=== PATIENT | female | born 1965 | race Caucasian/White ===

== ENCOUNTER 2018-06-05 09:26 | Emergency (ER) | payer MEDICARE, MEDICAID, SELFPAY ==
[2018-06-05 09:27] VITALS: BP 115/51; PULSE 73; RESP 20; TEMP 36.5; O2SAT 100; BMI 33.4
--- NOTE | 2018-06-05 09:40 | RAD_ITS ---
STUDY: X-RAY - LEFT WRIST REASON FOR EXAM: Female, 53 years old. Injury. TECHNIQUE: 3 view(s) of the wrist were obtained. COMPARISON: None. FINDINGS: Noted intra-articular fracture of the distal radius is present with dorsal angulation. Normal radiocarpal articulation. Normal distal radioulnar articulation. Normal carpal bones. Normal carpal articulations. Normal carpometacarpal articulation of the thumb. Normal second through fifth carpometacarpal articulations. Normal visualized metacarpal bones. The soft tissue structures are unremarkable. RAD/Wrist min 3 Views IMPRESSION: Distal radial comminuted fracture as above. Electronically Signed: Celso Dempsey DO at 10:08 EST , Service support ,
--- NOTE | 2018-06-05 09:42 | ED.VISSUMM ---
- ER Visit Summary Date of Service: 06/05/18 Chief Complaint: Left wrist injury History of Present Illness: The patient is a 53 F [id number]-[id number] mechanical fall yesterday evening 930. States in the basement stumbled and fell. No head injuries. Reports was drinking some alcohol yesterday. Does not drink daily. Tobacco history. History of right wrist fracture 4 years ago with surgery. No allergies. No medicines taken since injury. No anticoagulation medicines. Patient ate breakfast prior to arrival. Physical Examination: General: Alert and oriented ?3, no acute distress HEENT: Normocephalic, atraumatic. Moist mucosa membranes Neck: supple, nontender. Cardiovascular: Regular rate and rhythm, no murmurs Respiratory: Normal breath sounds, symmetric, no distress Abdomen: Soft, nontender, nondistended Extremities: Left upper extremity: No elbow pain. There is wrist swelling dorsal deformity radius. Ecchymosis in the volar aspect. Skin intact. Pain with movement. Neuro: no focal neurological deficits. Test Results: Left wrist: Comminuted distal radius fracture dorsal angulation. Postreduction x-ray: Improved angulation. Emergency Department Course and Treatment: Patient deformities on exam. Skin intact. Given oxycodone on arrival. X-ray notes comminuted fracture with dorsal angulation. Discussed and consent with patient, hematoma block performed with good analgesia. Patient was placed in AP splint in a forced flexed position, repeat imaging noted with improved angulation however no some displacement. This comminuted fracture. Neurovascular intact post splinting. Discussed with Dr. Hanna for outpatient follow-up. Prescription for Percocet and Colace.OARRS checked Treatment Plan: [] Disposition: Discharge Impression: 1. Closed left distal radius fracture 2. Status post reduction This note was generated with [employer] dictation software. It may contain incorrect words, spelling, and punctuation that were not noted in review of the chart prior to signing ED Disposition - Plan for ED Patient: Disposition: Home or Assisted Living Chief Complaint: Upper Extremity Injury Diagnosis: Closed fracture of left distal radius Instructions: ED Fx Upper Ext Prescriptions: Oxycodone HCl/Acetaminophen [Percocet 5/325] 1 tablet PO Q6H PRN PRN 3 Days #12 tablet PRN Reason: Pain Docusate Sodium [Colace] 100 mg PO DAILY #20 capsule Referrals: Lalit Kim MD [NON-STAFF] - Domingo Hanna DO [STAFF PHYSICIAN] - 3-5 Days
[2018-06-05] MEDS: oxyCODONE 5 MG Tablet PO (10:01)
[2018-06-05] MEDS: Bupivacaine Mpf 0.5% 30 ML VIAL INFILT (10:02)
--- NOTE | 2018-06-05 10:54 | RAD_ITS ---
STUDY: X-RAY - LEFT WRIST REASON FOR EXAM: Female, 53 years old. Post reduction TECHNIQUE: 3 view(s) of the wrist were obtained. COMPARISON: None. FINDINGS: Comminuted fracture with reduced dorsal angulation of the distal radius is present. Normal radiocarpal articulation. Normal distal radioulnar articulation. Normal carpal bones. Normal carpal articulations. Normal carpometacarpal articulation of the thumb. Normal second through fifth carpometacarpal articulations. Normal visualized metacarpal bones. The soft tissue structures are unremarkable. RAD/Wrist 2 Views IMPRESSION: Reduced dorsal angulation of the distal radius interarticular comminuted fracture. Electronically Signed: Celso Dempsey DO at 11:24 EST , Service support ,
== END 2018-06-05 11:59 | disposition home or self-care (01) ==
PROVIDERS: Emergency Provider Emergency Medicine; Family Provider Family Medicine; PCP Family Medicine
DX: S52.572A Other intraarticular fracture of lower end of left radius, initial encounter for closed fracture (principal); W18.39XA Other fall on same level, initial encounter; Y93.9 Activity, unspecified; Y92.9 Unspecified place or not applicable; K21.9 Gastro-esophageal reflux disease without esophagitis; F32.9 Major depressive disorder, single episode, unspecified; F41.9 Anxiety disorder, unspecified; Z79.899 Other long term (current) drug therapy; Z72.0 Tobacco use
CPT/HCPCS: 25605; 73100; 73110; 99283

== ENCOUNTER 2018-06-09 00:59 | Emergency (ER) | payer MEDICARE, MEDICAID, SELFPAY ==
[2018-06-09 01:01] VITALS: PULSE 86; RESP 18; TEMP 36.5; O2SAT 98; BMI 37.2
[2018-06-09 01:05] VITALS: BP 128/81
--- NOTE | 2018-06-09 01:26 | ED.VISSUMM ---
- ER Visit Summary Date of Service: 06/09/18 Chief Complaint: Splint evaluation History of Present Illness: The patient is a 53 F presents for splint evaluation due to tingling left fingers 3 hours prior to arrival. Seen 4 days ago by myself for a fall with a distal radius fracture. Sugar tong splint was placed. She states she has been elevating she has not had new injuries. She is appointment with Dr. Hanna in 2 days. Pain is controlled. States she is not using her sling. Physical Examination: General: Alert and oriented ?3, no acute distress HEENT: Normocephalic, atraumatic. Moist mucosa membranes Neck: supple, nontender. Cardiovascular: Regular rate and rhythm, no murmurs Respiratory: Normal breath sounds, symmetric, no distress Abdomen: Soft, nontender, nondistended Extremities: Left upper extremity: Sugar tong splint intact. There was swelling distal hand, cap refill less than 3 seconds. Neuro: no focal neurological deficits. Test Results: [] Emergency Department Course and Treatment: Please swelling distally complains of tingling. The splint was loosened, improved symptoms. Light gentle re-wrap. She will continue to elevate, she will follow-up with orthopedics as planned. Treatment Plan: [] Disposition: Discharge Impression: 1. Splint evaluation status post distal radius fracture This note was generated with [employer] dictation software. It may contain incorrect words, spelling, and punctuation that were not noted in review of the chart prior to signing ED Disposition - Plan for ED Patient: Disposition: Home or Assisted Living Chief Complaint: General Illness Diagnosis: Aftercare for cast or splint check or change Referrals: Dk Israel MD [Primary Care Provider] - Domingo Hanna DO [STAFF PHYSICIAN] - Keep Jonny appointment Additional Instructions: keep elevated. wear sling for comfort. keep appointment in 2 days.
[2018-06-09 01:32] VITALS: PULSE 71; RESP 16; O2SAT 95
--- OUTSIDE RECORDS SUMMARY | 2018-08-13 20:46 | XMS RPT_ITS ---
:1965 Author Organization OHIP Care Team Providers Name Role Phone LESA DEL CASTILLO Attending Unavailable LESA DEL CASTILLO Referring Unavailable JONNY KYLE (DOWEL MACHINE OPERATOR) Referring Unavailable LESA DEL CASTILLO Attending Unavailable JOAQUÍN SIMMONS Attending Unavailable Tim Sherwood Attending Unavailable Joaquín Simmons Primary Care Unavailable Joaquín Simmons Primary Care Unavailable Tim Sherwood Attending Unavailable PROBLEMS PROBLEMS DATE TYPE CONDITION / CODE ATTENDING STATUS SOURCE 06/06/2018 Unknown S52.92XA - Tim Sherwood Active [facility] fracture of left [facility] forearm, initial Repository encounter for closed fracture / S52.92XA(ICD-10) 12/01/2017 Active Encounter for Active [facility] screening mammogram [place] for malignant Repository neoplasm of breast / Z12.31(ICD-10) 07/07/2017 Active Encounter for Active [facility] screening for [place] infections with a Repository predominantly sexual mode of transmission / Z11.3(ICD-10) 07/07/2017 Active Encounter for other Active [facility] specified special [place] examinations / Repository Z01.89(ICD-10) PROCEDURES PROCEDURES No Procedure Records FoundRESULTS RESULTS EMERGENCY DEPARTMENT Observed: 06/09/2018 Status: F Source: [place] SUMMARY 2:51 AM [facility] REPOSITORY [facility] Medical Records Department [address] [place] [address] Emergency Department Summary 06/09/18 0126 MR#: [id number] Acct: [id number] Name: MATILDE DAMON Rep #: [id number] : 1965 53 From: Tim Calderon PCP: Joaquín Simmons MD Status: DEP ER - ER Visit Summary Date of Service: 06/09/18 Chief Complaint: Splint evaluation History of Present Illness: The patient is a 53 F presents for splint evaluation due to tingling left fingers 3 hours prior to arrival. Seen 4 days ago by myself for a fall with a distal radius fracture. Sugar tong splint was placed. She states she has been elevating she has not had new injuries. She is appointment with Dr. Hanna in 2 days. Pain is controlled. States she is not using her sling. Physical Examination: General: Alert and oriented 3, no acute distress HEENT: Normocephalic, atraumatic. Moist mucosa membranes Neck: supple, nontender. Cardiovascular: Regular rate and rhythm, no murmurs Respiratory: Normal breath sounds, symmetric, no distress Abdomen: Soft, nontender, nondistended Extremities: Left upper extremity: Sugar tong splint intact. There was swelling distal hand, cap refill less than 3 seconds. Neuro: no focal neurological deficits. Test Results: [] Emergency Department Course and Treatment: Please swelling distally complains of tingling. The splint was loosened, improved symptoms. Light gentle re-wrap. She will continue to elevate, she will follow-up with orthopedics as planned. Treatment Plan: [] Disposition: Discharge Impression: 1. Splint evaluation status post distal radius fracture This note was generated with MuseAmi dictation software. It may contain incorrect words, spelling, and punctuation that were not noted in review of the chart prior to signing ED Disposition - Plan for ED Patient: Disposition: Home or Assisted Living Chief Complaint: General Illness Diagnosis: Aftercare for cast or splint check or change Referrals: Joaquín Simmons MD [Primary Care Provider] - Domingo Hanna DO [STAFF PHYSICIAN] - Keep Jonny appointment Additional Instructions: keep elevated. wear sling for comfort. keep appointment in 2 days. What to do if you have Problems For any increased pain, shortness of breath, bleeding, nausea or vomiting, chest pain, or any unexpected problems, contact your Primary Care Provider. Call [facility] ([phone]) or report to the closest Emergency Room. Call 911 if necessary. 06/09/18 0251 <Electronically signed by Tim Calderon> Date Tim Calderon Cosigner Signature (If Indicated): Date CC: Joaquín Simmons MD EMERGENCY DEPARTMENT Observed: 06/05/2018 Status: F Source: [place] SUMMARY 11:54 AM [facility] REPOSITORY [facility] Medical Records Department [address] [place] [address] Emergency Department Summary 06/05/18 0942 MR#: [id number] Acct: [id number] Name: MATILDE DAMON Rep #: [id number] : 1965 53 From: Tim Calderon PCP: Joaquín Simmons MD Status: REG ER - ER Visit Summary Date of Service: 06/05/18 Chief Complaint: Left wrist injury History of Present Illness: The patient is a 53 F rible-oybl-iovehote mechanical fall yesterday evening 930. States in the basement stumbled and fell. No head injuries. Reports was drinking some alcohol yesterday. Does not drink daily. Tobacco history. History of right wrist fracture 4 years ago with surgery. No allergies. No medicines taken since injury. No anticoagulation medicines. Patient ate breakfast prior to arrival. Physical Examination: General: Alert and oriented 3, no acute distress HEENT: Normocephalic, atraumatic. Moist mucosa membranes Neck: supple, nontender. Cardiovascular: Regular rate and rhythm, no murmurs Respiratory: Normal breath sounds, symmetric, no distress Abdomen: Soft, nontender, nondistended Extremities: Left upper extremity: No elbow pain. There is wrist swelling dorsal deformity radius. Ecchymosis in the volar aspect. Skin intact. Pain with movement. Neuro: no focal neurological deficits. Test Results: Left wrist: Comminuted distal radius fracture dorsal angulation. Postreduction x-ray: Improved angulation. Emergency Department Course and Treatment: Patient deformities on exam. Skin intact. Given oxycodone on arrival. X-ray notes comminuted fracture with dorsal angulation. Discussed and consent with patient, hematoma block performed with good analgesia. Patient was placed in AP splint in a forced flexed position, repeat imaging noted with improved angulation however no some displacement. This comminuted fracture. Neurovascular intact post splinting. Discussed with Dr. Hanna for outpatient follow-up. Prescription for Percocet and Colace.OARRS checked Treatment Plan: [] Disposition: Discharge Impression: 1. Closed left distal radius fracture 2. Status post reduction This note was generated with MuseAmi dictation software. It may contain incorrect words, spelling, and punctuation that were not noted in review of the chart prior to signing ED Disposition - Plan for ED Patient: Disposition: Home or Assisted Living Chief Complaint: Upper Extremity Injury Diagnosis: Closed fracture of left distal radius Instructions: ED Fx Upper Ext Prescriptions: Oxycodone HCl/Acetaminophen [Percocet 5/325] 1 tablet PO Q6H PRN PRN 3 Days #12 tablet PRN Reason: Pain Docusate Sodium [Colace] 100 mg PO DAILY #20 capsule Referrals: Lalit Duque MD [NON-STAFF] - Domingo Hanna DO [STAFF PHYSICIAN] - 3-5 Days What to do if you have Problems For any increased pain, shortness of breath, bleeding, nausea or vomiting, chest pain, or any unexpected problems, contact your Primary Care Provider. Call [facility] ([phone]) or report to the closest Emergency Room. Call 911 if necessary. 06/05/18 1154 <Electronically signed by Tim Calderon> Date Tim Calderon Cosigner Signature (If Indicated): Date CC: Joaquín Simmons MD WRIST 2 VIEWS Observed: 06/05/2018 Status: F Source: [place] 10:54 AM [facility] REPOSITORY [facility] Imaging Services [address] [place] [address] Wrist 2 Views MR#: [id number] Acct: [id number] Name: MATILDE DAMON Rep #: [id number] : 1965 F 53 From: Celso Ke PATINO PCP: Joaquín Simmons MD Status: REG ER Study: Wrist 2 Views Date of Exam: 06/05/18 Exam# [id number] Ordering Dr: Tim Sherwood DO STUDY: X-RAY - LEFT WRIST REASON FOR EXAM: Female, 53 years old. Post reduction TECHNIQUE: 3 view(s) of the wrist were obtained. COMPARISON: None. FINDINGS: Comminuted fracture with reduced dorsal angulation of the distal radius is present. Normal radiocarpal articulation. Normal distal radioulnar articulation. Normal carpal bones. Normal carpal articulations. Normal carpometacarpal articulation of the thumb. Normal second through fifth carpometacarpal articulations. Normal visualized metacarpal bones. The soft tissue structures are unremarkable. RAD/Wrist 2 Views IMPRESSION: Reduced dorsal angulation of the distal radius interarticular comminuted fracture. Electronically Signed: Celso Dempsey DO at 11:24 EST , Service support , CC: Joaquín Simmons MD; Tim Sherwood Splitting Machine Operator Helper: Signed WRIST MIN 3 VIEWS Observed: 06/05/2018 Status: F Source: [place] 9:41 AM [facility] REPOSITORY [facility] Imaging Services [address] [place] [id number] Wrist min 3 Views MR#: [id number] Acct: [id number] Name: MATILDE DAMON Rep #: [id number] : 1965 F 53 From: Celso Dempsey DO PCP: Joaquín Simmons MD Status: REG ER Study: Wrist min 3 Views Date of Exam: 06/05/18 Exam# [id number] Ordering Dr: Tim Sherwood DO STUDY: X-RAY - LEFT WRIST REASON FOR EXAM: Female, 53 years old. Injury. TECHNIQUE: 3 view(s) of the wrist were obtained. COMPARISON: None. FINDINGS: Noted intra-articular fracture of the distal radius is present with dorsal angulation. Normal radiocarpal articulation. Normal distal radioulnar articulation. Normal carpal bones. Normal carpal articulations. Normal carpometacarpal articulation of the thumb. Normal second through fifth carpometacarpal articulations. Normal visualized metacarpal bones. The soft tissue structures are unremarkable. RAD/Wrist min 3 Views IMPRESSION: Distal radial comminuted fracture as above. Electronically Signed: Celso Dempsey DO at 10:08 EST , Service support , CC: Joaquín Simmons MD; Tim Sherwood Splitting Machine Operator Helper: Signed CNOV Observed: 02/12/2018 Status: COMPLETED Source: [place] 2:40 PM [facility] REPOSITORY Office Visit (FAMPWS) MATILDE DAMON ([id number]) 1965 F Date Time Provider Department 02/12/18 2:40 PM JOAQUÍN SIMMONS FAMPWS During your visit today, we recorded the following information about you: Temperature Pulse Respiration Blood pressure 97.3 degrees 74/minute 16/minute 118/78 Weight Height 99.3 kg 1.727 m Joaquín Simmons MD 02/14/2018 3:46 PM Signed Chief Complaint Patient presents with: Establish Care: transfer Imm/Inj: Flu Vaccine HPI Matilde Damon is a 52 year old female who presents here today to establish care. No bowel, Gi, or urinary concerns. No chest pains or dizziness. COPD: has SOB with exertion, has to stop and rest. She had lung testing done. Is taking Incruse Ellipta inhaler daily and Albuterol as needed. Does not follow with Pulmonary. Smokes about 1 ppd, not interested in quitting. She has a hard time not smoking if other people are smoking around her. GERD: is taking omeprazole 20 mg daily, controlled. Bipolar: is taking Buspar 10 mg BID and Effexor xr 150 mg daily. Gets these prescribed by Dr. Saldaña at the counseling center, follows with them every 6 months. Lipid: pt states she no longer takes the zocor. Skin: rough bumpy rash to skin and nose, has been using Bactroban ointment which helps. Pt had issues with right calf feeling pain and tight, similar to how it felt in 2009. States this did improve. She has been taking a baby aspirin daily. Saw Dr. Agustin Hunter for PVD and had intervention for blockage at that time. Last SARY in 2011.. Past medical history, appointments, medications, allergies reviewed. Previous Medical History PAST MEDICAL HISTORY Diagnosis Date - Carpal tunnel syndrome - Depression - Elevated blood pressure reading without diagnosis of hypertension - Generalized anxiety disorder - GERD (gastroesophageal reflux disease) Gastritis - Hyperlipidemia - Peripheral arterial disease (HCC) right leg - PMH - PAST MEDICAL HISTORY OF mild retardation - PMH - PAST MEDICAL HISTORY OF ADD? - PMH - PAST MEDICAL HISTORY OF arthritis - Tobacco use disorder Previous Surgical History PAST SURGICAL HISTORY Procedure Laterality Date - BALLN ANGIOPLASTY PERC,FEM-POP ---10 right LEG angioplasty superficial femoral and profunda - BX OF BREAST; INCISIONAL Bx of left breast, incisional- benign - DELIVERY ONLY 1987, 1992 - COLONOSCOP W/ OR W/O [facility] SPEC 09/30/2016 normal - 10 year followup - CORRECT BUNION,SIMPLE Bunion X-2 - EGD W/O OR W/BRUSH/WASH 05/16/15 EGD - LIGATE FALLOPIAN TUBE 08/16/03 Tubal ligation - OPEN RX NAVICULAR FX 05/12/2014 ORIF right wrist - PAST SURGICAL HISTORY OF right 5th digit arthroplasty, foot - REMOVAL GALLBLADDER 1993 open cholecystectomy Family History FAMILY HISTORY Problem Relation Age of Onset - Diabetes Mother - Hypertension Mother - Hypertension Father - Heart Failure Father - Hyperlipidemia Father - Cancer Maternal Aunt Uterine - Diabetes Paternal Aunt - Diabetes Paternal Uncle - Colon Cancer Maternal Grandmother in 70s Patient Allergies ALLERGIES No Known Allergies Current Medications Current Outpatient Prescriptions on File Prior to Visit: omeprazole (PRILOSEC) 20 mg capsule TAKE 1 CAPSULE BY MOUTH ONCE DAILY. INCRUSE ELLIPTA 62.5 mcg/actuation inhaler INHALE 1 PUFF INSTRUCTED ONCE DAILY. simvastatin (ZOCOR) 10 mg tablet TAKE 1 TABLET BY MOUTH AT BEDTIME albuterol HFA (PROVENTIL HFA, VENTOLIN HFA) 90 mcg/actuation inhaler Inhale 1 Puff as instructed every 4 hours as needed for Wheezing/Shortness of Breath. ASPIRIN 81 MG TAB Take one(1) tablet daily. venlafaxine hcl(EFFEXOR XR 150 MG 24 HR CAP) Take one(1) tablet daily. busPIRone (BUSPAR) 10 mg ORAL tablet Take 10 mg by mouth three times daily. No current facility-administered medications on file prior to visit. Social History Social History Marital status: Spouse name: Years of education: Number of children: 2 Occupational History Occupation Employer Comment Disabled-mental il* Social History Main Topics Smoking status: Current Every Day Smoker Packs/day: 1.00 Years: 30.00 Types: Cigarettes Smokeless tobacco: Never Used Comment: Father smoked in childhood home. Has lived with smokers as an adult. Alcohol use: Yes Comment: Rarely Drug use: No Sexual activity: Yes Partners with: Male control/protection: Tubal Ligation EXAM: BP 118/78 Pulse 74 Temp 36.3 ?C (97.3 ?F) (Tympanic) Resp 16 Ht 172.7 cm (5' 8) Wt 99.3 kg (219 lb) BMI 33.30 kg/m? General Appearance: Well appearing, alert, in no acute distress, well-hydrated, well nourished. and Obese.. Neck: no carotid bruits. Lungs: Lungs clear to auscultation. No wheezing, rhonchi, rales. Heart: RRR without murmur, gallop, or rubs. No ectopy. Extremities: Pulses: diminished on right. Health Maintenance List ANNUAL PCP TEAM CHRONIC DISEASE VISIT due on 1984 HPV EVERY 5 YEARS due on 10/25/2015 INFLUENZA(1) due on 01/23/2018 MAMMOGRAM due on 12/01/2018 DIABETES SCREEN due on 11/29/2019 PAP EVERY 5 YEARS due on 09/23/2021 LIPID SCREEN due on 11/28/2021 DTAP,TDAP,TD(2 - Td) due on 08/07/2026 COLORECTAL CANCER SCREENING,SEE MODIFIER due on 10/01/2026 ONE PNEUMOVAX PRIOR TO AGE 65 Completed Data reviewed None ASSESSMENT/PLAN: 1. Establishing care with new doctor, encounter for - ICD9: V65.8, ICD10: Z76.89 (primary diagnosis) Recommend pt stop smoking Recommend healthy diet and exercise 2. Need for vaccination - ICD9: V05.9, ICD10: Z23 - INFLUENZA VACCINE QUADRIVALENT AGE 3 YRS PLUS + IM 3. Tobacco use disorder - ICD9: 305.1, ICD10: F17.200 - Cessation encouraged. - Not willing to quit at this time 4. Bipolar affective disorder, remission status unspecified (HCC) - ICD9: 296.80, ICD10: F31.9 Continue with Stephen and deniz Continue to follow with Dr. Saldaña - BUSPIRONE 10 MG TABLET 5. Gastroesophageal reflux disease without esophagitis - ICD9: 530.81, ICD10: K21.9 - OMEPRAZOLE 20 MG CAPSULE,DELAYED RELEASE 6. Chronic obstructive pulmonary disease, unspecified COPD type (HCC) - ICD9: 496, ICD10: J44.9 - UMECLIDINIUM 62.5 MCG/ACTUATION BLISTER POWDER FOR INHALATION - ALBUTEROL SULFATE HFA 90 MCG/ACTUATION AEROSOL INHALER 7. Mixed hyperlipidemia - ICD9: 272.2, ICD10: E78.2 - good control - Encouraged following a low fat, low cholesterol diet. - Discussed the benefits of regular aerobic exercise and weight loss. 8. Peripheral vascular disease, unspecified (HCC) - ICD9: 443.9, ICD10: I73.9 SARY test ordered; notify of result Follow up in 1 year or sooner if needed. Will notify pt of blood work results. I agree with the Chief Complaint, ROS, and Past Histories independently gathered by the clinical support coordinator and the remaining scribed note accurately describes my personal service to the patient. Joaquín Simmons MD The documentation for this note was completed by Shanna Jeter Ma acting as scribe for Joaquín Simmons MD. February 12, 2018 2:23 PM. 52 year old female here for INACTIVATED INFLUENZA VACCINE. 1964-2386 Season Patient is identified by name and date of : Yes [] CONTRAINDICATIONS color enhanced section Age less than 6 months? No Allergy to eggs, chicken, chicken feathers, or chicken dander? No Allergy to thimerosal (a preservative) or formaldehyde, gelatin? No History of severe reaction to any vaccine component or a previous dose of influenza vaccination? No History of Guillain-[place] Syndrome within 6 weeks after a previous influenza vaccine? No Patient is not moderately or severely ill? No Current temperature greater or equal to 100.4F? No History of Bone Marrow Transplant prior 6 months or solid organ transplant in the past 3 months ? No History of fainting after a prior injection or medical procedure? No- ? If patient has fainted in the past, the CDC recommends sitting or lying down for 15 minutes after the vaccination. [] VERIFICATION color enhanced section Was the answer Yes for any of the above contraindications? No contraindications present. Acceptable to proceed with vaccine. Patient/guardian agrees the above answers are true to the best of their knowledge? Yes Flu vaccine information sheet given? Yes [facility] details of immunizations adminstered today. Patient age: [age] year old For The 4996-8650 Flu Season 6-35 months old: Fluzone 0.25 ml - IM (Preservative Free) 3 years of age: Fluzone 0.5 ml - IM (Preservative Free) 3 years and older: Fluzone 0.5 ml- IM-(with Preservatives) 65+ years old: 2-49 years old Fluzone High-Dose 0.5 ml - IM (Preservative Free) FLUMIST- intranasal REMEMBER: If patient is less than 9 years of age and this is the first vaccine of Influenza to be received in any flu season, they should receive a second dose in one months time. Referring Provider: SELF [200] Allergies As of Date: 02/12/2018 (No Known Allergies) Date Reviewed: 02/12/2018 Reviewed by: Shanna Jeter Ma - Fully Assessed Reason for Visit: Establish Care [42] Cmt: transfer Imm/Inj [58] Cmt: Flu Vaccine Reason For Visit History Recorded Primary Visit Diagnosis:Establishing care with new doctor, encounter for [Z76.89] Other Visit Diagnoses:Need for vaccination [Z23] Tobacco use disorder [F17.200] Bipolar affective disorder, remission status unspecified ([facility]) [F31.9] Gastroesophageal reflux disease without esophagitis [K21.9] Chronic obstructive pulmonary disease, unspecified COPD type ([facility]) [J44.9] Mixed hyperlipidemia [E78.2] Peripheral vascular disease, unspecified ([facility]) [I73.9] Order(s):INFLUENZA VACCINE QUADRIVALENT AGE 3 YRS PLUS + IM [[id number]] Order #: [id number] omeprazole (PRILOSEC) 20 mg capsuleTake 1 capsule by mouth once daily.Disp: 30 capsuleRfl: 11 umeclidinium (INCRUSE ELLIPTA) 62.5 mcg/actuation inhalerINHALE 1 PUFF INSTRUCTED ONCE DAILY.Disp: 1 EachRfl: 11 albuterol HFA (PROVENTIL HFA, VENTOLIN HFA) 90 mcg/actuation inhalerInhale 1 Puff as instructed every 4 hours as needed for Wheezing/Shortness of Breath.Disp: 1 InhalerRfl: 5 mupirocin (BACTROBAN) 2 % ointmentApply 1 application to affected area three times daily. Location: noseDisp: 15 gRfl: 0 LIPID PANEL BASIC [SQLIPB] Order #: [id number] FUTURE COMP METABOLIC PANEL [SQCMP] Order #: [id number] FUTURE PVR ANK PRESS [facility] [[id number]] Order #: [id number] FUTURE Prescriptions as of 02/12/2018 Sig: OMEPRAZOLE 20 MG CAPSULE,VENECIA* Take 1 capsule by mouth once * UMECLIDINIUM 62.5 MCG/ACTUATI* INHALE 1 PUFF INSTRUCTED O* ALBUTEROL SULFATE HFA 90 MCG/* Inhale 1 Puff as instructed e* SIMVASTATIN 10 MG TABLET TAKE 1 TABLET BY MOUTH AT BED* * ASPIRIN 81 MG TABLET Take one(1) tablet daily. * EFFEXOR XR 150 MG CAPSULE,EXT* Take one(1) tablet daily. BUSPIRONE 10 MG TABLET Take 1 tablet by mouth twice * MUPIROCIN 2 % TOPICAL OINTMENT Apply 1 application to affect* Problem List As Of Date 02/12/2018 Noted Resolved LUMBAGO [M54.5] INVALID FOR* COMPLIC MATERIAL MOVER ORTHO DEVICE [T84.89XA] INVALID FOR* PAIN IN LIMB [M79.609] INVALID FOR* CARPAL TUNNEL SYNDROME [G56.00] INVALID FOR* CERVICALGIA [M54.2] INVALID FOR* JOINT PAIN-SHLDER [M25.519] INVALID FOR* HIDRADENITIS [L73.2] INVALID FOR* Unspecified Peripheral Vascular Disease [I73.9] INVALID FOR* Exostosis of unspecified site [M89.8X9] INVALID FOR* Hallux valgus (acquired) [M20.10] INVALID FOR* Folliculitis [L73.9] INVALID FOR* Tobacco use disorder [F17.200] Right wrist fracture [S62.101A] INVALID FOR* Nontoxic uninodular goiter [E04.1] INVALID FOR* PVD (peripheral vascular disease) (HCC) [I73.9] INVALID FOR* Chronic bronchitis (HCC) [J42] INVALID FOR* Bipolar disorder (HCC) [F31.9] INVALID FOR* Gastroesophageal reflux disease [K21.9] INVALID FOR*05/16/2015 Centrilobular emphysema (HCC) [J43.2] INVALID FOR* Hyperlipidemia [E78.5] INVALID FOR* Gastroesophageal reflux disease without esophag*INVALID FOR* Prescriptions ordered this encounter Disp Refills Start End OMEPRAZOLE 20 MG CAPSULE,DELAYED REL* 30 c* 02/12/2018 Route: ORAL Sig: Take 1 capsule by mouth once daily. UMECLIDINIUM 62.5 MCG/ACTUATION BLIS* 1 Ea* 11 02/12/2018 Sig: INHALE 1 PUFF INSTRUCTED ONCE DAILY. ALBUTEROL SULFATE HFA 90 MCG/ACTUATI* 1 In* 5 02/12/2018 Route: INHALATION Sig: Inhale 1 Puff as instructed every 4 hours as needed for Wheezing/Shortness of Breath. MUPIROCIN 2 % TOPICAL OINTMENT 15 g 0 02/12/2018 Route: TOPICAL Sig: Apply 1 application to affected area three times daily. Location: nose Medications Discontinued During This Encounter busPIRone (BUSPAR) 10 mg ORAL tablet 02/12/2018 Class: Med Update Route: ORAL Sig: Take 10 mg by mouth three times daily. Disc: Reason for discontinue is not on file. omeprazole (PRILOSEC) 20 mg capsule 30 c* 5 01/13/2018 02/12/2018 Cmt: Maximum Refills Reached Sig: TAKE 1 CAPSULE BY MOUTH ONCE DAILY. Disc: Reason for discontinue is not on file. INCRUSE ELLIPTA 62.5 mcg/actuation i* 1 Ea* 5 01/13/2018 02/12/2018 Cmt: Maximum Refills Reached Sig: INHALE 1 PUFF INSTRUCTED ONCE DAILY. Disc: Reason for discontinue is not on file. albuterol HFA (PROVENTIL HFA, VENTOL* 1 In* 0 07/17/2016 02/12/2018 Route: INHALATION Sig: Inhale 1 Puff as instructed every 4 hours as needed for Wheezing/Shortness of Breath. Disc: Reason for discontinue is not on file. Encounter Status:Closed by JOAQUÍN SIMMONS MD on 02/14/18 PROGRESS Observed: 02/12/2018 Status: COMPLETED Source: [place] 2:19 PM [facility] [place] REPOSITORY HNO ID: [id number] Author: Joaquín Simmons Service: (none) Author Type: Physician Type: Progress Notes Filed: 02/14/2018 3:46 PM Note Text: Chief Complaint Patient presents with: Establish Care: transfer Imm/Inj: Flu Vaccine HPI Matilde Damon is a 52 year old female who presents here today to establish care. No bowel, Gi, or urinary concerns. No chest pains or dizziness. COPD: has SOB with exertion, has to stop and rest. She had lung testing done. Is taking Incruse Ellipta inhaler daily and Albuterol as needed. Does not follow with Pulmonary. Smokes about 1 ppd, not interested in quitting. She has a hard time not smoking if other people are smoking around her. GERD: is taking omeprazole 20 mg daily, controlled. Bipolar: is taking Buspar 10 mg BID and Effexor xr 150 mg daily. Gets these prescribed by Dr. Saldaña at the counseling center, follows with them every 6 months. Lipid: pt states she no longer takes the zocor. Skin: rough bumpy rash to skin and nose, has been using Bactroban ointment which helps. Pt had issues with right calf feeling pain and tight, similar to how it felt in 2009. States this did improve. She has been taking a baby aspirin daily. Saw Dr. Agustin Hunter for PVD and had intervention for blockage at that time. Last SARY in 2011.. Past medical history, appointments, medications, allergies reviewed. Previous Medical History PAST MEDICAL HISTORY Diagnosis Date - Carpal tunnel syndrome - Depression - Elevated blood pressure reading without diagnosis of hypertension - Generalized anxiety disorder - GERD (gastroesophageal reflux disease) Gastritis - Hyperlipidemia - Peripheral arterial disease (HCC) right leg - PMH - PAST MEDICAL HISTORY OF mild retardation - PMH - PAST MEDICAL HISTORY OF ADD? - PMH - PAST MEDICAL HISTORY OF arthritis - Tobacco use disorder Previous Surgical History PAST SURGICAL HISTORY Procedure Laterality Date - BALLN ANGIOPLASTY PERC,FEM-POP 07-16--10 right LEG angioplasty superficial femoral and profunda - BX OF BREAST; INCISIONAL Bx of left breast, incisional- benign - DELIVERY ONLY 1987, 1992 - COLONOSCOP W/ OR W/O [facility] SPEC 09/30/2016 normal - 10 year followup - CORRECT BUNION,SIMPLE Bunion X-2 - EGD W/O OR W/BRUSH/WASH 05/16/15 EGD - LIGATE FALLOPIAN TUBE 08/16/03 Tubal ligation - OPEN RX NAVICULAR FX 05/12/2014 ORIF right wrist - PAST SURGICAL HISTORY OF right 5th digit arthroplasty, foot - REMOVAL GALLBLADDER 1993 open cholecystectomy Family History FAMILY HISTORY Problem Relation Age of Onset - Diabetes Mother - Hypertension Mother - Hypertension Father - Heart Failure Father - Hyperlipidemia Father - Cancer Maternal Aunt Uterine - Diabetes Paternal Aunt - Diabetes Paternal Uncle - Colon Cancer Maternal Grandmother in 70s Patient Allergies ALLERGIES No Known Allergies Current Medications Current Outpatient Prescriptions on File Prior to Visit: omeprazole (PRILOSEC) 20 mg capsule TAKE 1 CAPSULE BY MOUTH ONCE DAILY. INCRUSE ELLIPTA 62.5 mcg/actuation inhaler INHALE 1 PUFF INSTRUCTED ONCE DAILY. simvastatin (ZOCOR) 10 mg tablet TAKE 1 TABLET BY MOUTH AT BEDTIME albuterol HFA (PROVENTIL HFA, VENTOLIN HFA) 90 mcg/actuation inhaler Inhale 1 Puff as instructed every 4 hours as needed for Wheezing/Shortness of Breath. ASPIRIN 81 MG TAB Take one(1) tablet daily. venlafaxine hcl(EFFEXOR XR 150 MG 24 HR CAP) Take one(1) tablet daily. busPIRone (BUSPAR) 10 mg ORAL tablet Take 10 mg by mouth three times daily. No current facility-administered medications on file prior to visit. Social History Social History Marital status: Spouse name: Years of education: Number of children: 2 Occupational History Occupation Employer Comment Disabled-mental il* Social History Main Topics Smoking status: Current Every Day Smoker Packs/day: 1.00 Years: 30.00 Types: Cigarettes Smokeless tobacco: Never Used Comment: Father smoked in childhood home. Has lived with smokers as an adult. Alcohol use: Yes Comment: Rarely Drug use: No Sexual activity: Yes Partners with: Male control/protection: Tubal Ligation EXAM: BP 118/78 Pulse 74 Temp 36.3 ?C (97.3 ?F) (Tympanic) Resp 16 Ht 172.7 cm (5' 8) Wt 99.3 kg (219 lb) BMI 33.30 kg/m? General Appearance: Well appearing, alert, in no acute distress, well-hydrated, well nourished. and Obese.. Neck: no carotid bruits. Lungs: Lungs clear to auscultation. No wheezing, rhonchi, rales. Heart: RRR without murmur, gallop, or rubs. No ectopy. Extremities: Pulses: diminished on right. Health Maintenance List ANNUAL PCP TEAM CHRONIC DISEASE VISIT due on 1984 HPV EVERY 5 YEARS due on 10/25/2015 INFLUENZA(1) due on 01/23/2018 MAMMOGRAM due on 12/01/2018 DIABETES SCREEN due on 11/29/2019 PAP EVERY 5 YEARS due on 09/23/2021 LIPID SCREEN due on 11/28/2021 DTAP,TDAP,TD(2 - Td) due on 08/07/2026 COLORECTAL CANCER SCREENING,SEE MODIFIER due on 10/01/2026 ONE PNEUMOVAX PRIOR TO AGE 65 Completed Data reviewed None ASSESSMENT/PLAN: 1. Establishing care with new doctor, encounter for - ICD9: V65.8, ICD10: Z76.89 (primary diagnosis) Recommend pt stop smoking Recommend healthy diet and exercise 2. Need for vaccination - ICD9: V05.9, ICD10: Z23 - INFLUENZA VACCINE QUADRIVALENT AGE 3 YRS PLUS + IM 3. Tobacco use disorder - ICD9: 305.1, ICD10: F17.200 - Cessation encouraged. - Not willing to quit at this time 4. Bipolar affective disorder, remission status unspecified (HCC) - ICD9: 296.80, ICD10: F31.9 Continue with Effexor and buspar Continue to follow with Dr. Saldaña - BUSPIRONE 10 MG TABLET 5. Gastroesophageal reflux disease without esophagitis - ICD9: 530.81, ICD10: K21.9 - OMEPRAZOLE 20 MG CAPSULE,DELAYED RELEASE 6. Chronic obstructive pulmonary disease, unspecified COPD type (HCC) - ICD9: 496, ICD10: J44.9 - UMECLIDINIUM 62.5 MCG/ACTUATION BLISTER POWDER FOR INHALATION - ALBUTEROL SULFATE HFA 90 MCG/ACTUATION AEROSOL INHALER 7. Mixed hyperlipidemia - ICD9: 272.2, ICD10: E78.2 - good control - Encouraged following a low fat, low cholesterol diet. - Discussed the benefits of regular aerobic exercise and weight loss. 8. Peripheral vascular disease, unspecified (HCC) - ICD9: 443.9, ICD10: I73.9 SARY test ordered; notify of result Follow up in 1 year or sooner if needed. Will notify pt of blood work results. I agree with the Chief Complaint, ROS, and Past Histories independently gathered by the clinical support coordinator and the remaining scribed note accurately describes my personal service to the patient. Joaquín Simmons MD The documentation for this note was completed by Shanna Jeter Ma acting as scribe for Joaquín Simmons MD. February 12, 2018 2:23 PM. 52 year old female here for INACTIVATED INFLUENZA VACCINE. 2022-2332 Season Patient is identified by name and date of : Yes [] CONTRAINDICATIONS color enhanced section Age less than 6 months? No Allergy to eggs, chicken, chicken feathers, or chicken dander? No Allergy to thimerosal (a preservative) or formaldehyde, gelatin? No History of severe reaction to any vaccine component or a previous dose of influenza vaccination? No History of Guillain-[place]and[place] Syndrome within 6 weeks after a previous influenza vaccine? No Patient is not moderately or severely ill? No Current temperature greater or equal to 100.4F? No History of Bone Marrow Transplant prior 6 months or solid organ transplant in the past 3 months ? No History of fainting after a prior injection or medical procedure? No- ? If patient has fainted in the past, the CDC recommends sitting or lying down for 15 minutes after the vaccination. [] VERIFICATION color enhanced section Was the answer Yes for any of the above contraindications? No contraindications present. Acceptable to proceed with vaccine. Patient/guardian agrees the above answers are true to the best of their knowledge? Yes Flu vaccine information sheet given? Yes See immunization activity in [facility] for details of immunizations adminstered today. Patient age: [age] year old For The 5851-6402 Flu Season 6-35 months old: Fluzone 0.25 ml - IM (Preservative Free) 3 years of age: Fluzone 0.5 ml - IM (Preservative Free) 3 years and older: Fluzone 0.5 ml- IM-(with Preservatives) 65+ years old: 2-49 years old Fluzone High-Dose 0.5 ml - IM (Preservative Free) FLUMIST- intranasal REMEMBER: If patient is less than 9 years of age and this is the first vaccine of Influenza to be received in any flu season, they should receive a second dose in one months time. CNCO Observed: 12/01/2017 Status: COMPLETED Source: [place] 3:57 PM [facility] REPOSITORY HNO ID: [id number] Author: Mammography Coordinator Service: (none) Author Type: Physician Type: Letter Filed: 12/02/2017 11:32 PM Note Text: December 01, 2017 PID: [id number] Matilde Damon [address] [place] [address] Dear Ms. Damon, We are pleased to inform you that the results of your recent breast imaging exam on 12/01/2017 are normal. DENSITY_MESSAGE Early detection of cancer is very important. We also understand recommendations regarding breast cancer screening are controversial. Please discuss with your primary care provider which strategy is best for you and whether a mammogram is right for you. Your imaging studies and report will be kept on file at [facility] as part of your permanent medical record and are available for your continuing care. Thank you for allowing us to help in meeting your health care needs. Sincerely, Dr. Giles Interpreting Radiologist [facility] (Normal over 40) CNOV Observed: 12/01/2017 Status: COMPLETED Source: [place] 3:40 PM [facility] [place] REPOSITORY Office Visit (WOOB) MATILDE DAMON ([id number]) 1965 F Date Time Provider Department 12/01/17 3:40 PM LESA DEL CASTILLO During your visit today, we recorded the following information about you: Blood pressure Weight Height Last Period 134/90 97.5 kg 1.702 m 10/01/17 Lesa Del Castillo MD 12/01/2017 4:02 PM Signed Matilde Damon is a 52 year old who presents for her annual gynecologic exam without complaints. Postmenopausal: No, menses every 2 months HRT use: No. Last Pap: 2016 normal HPV: n/a History of abnormal pap: No Last mammogram: today History of abnormal mammogram: Yes - h/o breast biopsy Obstetric History T2 L2 SAB0 TAB0 Ectopic0 Multiple0 Live Births0 PAST MEDICAL HISTORY Diagnosis Date - Carpal tunnel syndrome - Depression - Elevated blood pressure reading without diagnosis of hypertension - Generalized anxiety disorder - GERD (gastroesophageal reflux disease) Gastritis - Hyperlipidemia - Peripheral arterial disease (HCC) right leg - PMH - PAST MEDICAL HISTORY OF mild retardation - PMH - PAST MEDICAL HISTORY OF ADD? - PMH - PAST MEDICAL HISTORY OF arthritis - Tobacco use disorder PAST SURGICAL HISTORY Procedure Laterality Date - BALLN ANGIOPLASTY PERC,FEM-POP 2-22--10 right LEG angioplasty superficial femoral and profunda - BX OF BREAST; INCISIONAL Bx of left breast, incisional- benign - DELIVERY ONLY 1987, 1992 - [facility]COP W/ [facility] 09/30/2016 normal - 10 year followup - CORRECT BUNION,SIMPLE Bunion X-2 - EGD W/O OR W/BRUSH/WASH 05/16/15 EGD - LIGATE FALLOPIAN TUBE 08/16/03 Tubal ligation - OPEN RX NAVICULAR FX 05/12/2014 ORIF right wrist - PAST SURGICAL HISTORY OF right 5th digit arthroplasty, foot - REMOVAL GALLBLADDER 1993 open cholecystectomy FAMILY HISTORY Problem Relation Age of Onset - Diabetes Mother - Hypertension Mother - Hypertension Father - Heart Failure Father - Hyperlipidemia Father - Cancer Maternal Aunt Uterine - Diabetes Paternal Aunt - Diabetes Paternal Uncle - Colon Cancer Maternal Grandmother in 70s SOCIAL HISTORY Social History Substance Use Topics - Smoking status: Current Every Day Smoker Packs/day: 1.00 Years: 30.00 Types: Cigarettes - Smokeless tobacco: Never Used Comment: Father smoked in childhood home. Has lived with smokers as an adult. - Alcohol use Yes Comment: Rarely REVIEW OF SYSTEMS Abdomen: No abdominal pain, nausea, vomiting, diarrhea, or constipation. No bloating, early satiety, indigestion, or increased flatulence. Bladder: No dysuria, gross hematuria, urinary frequency, urinary urgency, or incontinence Breast: No breast lumps, nipple d/c, overlying skin changes, redness or skin retraction Allergies and current medication updated:Yes EXAM: There were no vitals taken for this visit. GENERAL: pleasant, female in no apparent distress BREAST: soft, non-tender, symmetric, no dominant mass, normal nipple-areolar complex, no lymphadenopathy and no nipple discharge CHEST: Normal inspiratory effort ABDOMEN: soft, non-tender and no masses PELVIC: external genitalia normal, normal Bartholin's glands, urethra, Bryson's glands, no vulvar lesions, no cervical lesions, normal appearing perineal body and perianal region BIMANUAL: uterus normal size, shape and consistency, no adnexal masses and non-tender RECTOVAGINAL: patient declined. NEURO: alert and oriented x3,exam grossly non-focal EXTREMITIES: normal ASSESSMENT/PLAN: 1) Health maintenance: Pap up to date - repeat in 1-2 years Mammogram up to date Nutrition, exercise and routine health maintenance exams reviewed. Colon cancer screening: up to date with screening 2) Follow up one year or sooner as needed Lesa Del Castillo MD Referring Provider: SELF [200] Allergies As of Date: 12/01/2017 (No Known Allergies) Date Reviewed: 12/01/2017 Reviewed by: Lesa Del Castillo - Fully Assessed Reason for Visit: Yearly Exam [187] Primary Visit Diagnosis:Encounter for gynecological examination without abnormal finding [Z01.419] Other Visit Diagnosis:Encounter for screening mammogram for malignant neoplasm of breast [Z12.31] Order(s):[facility] SCREENING [[id number]] Order #: [id number] FUTURE Prescriptions as of 12/01/2017 Sig: OMEPRAZOLE 20 MG CAPSULE,VENECIA* TAKE 1 CAPSULE BY MOUTH ONCE * INCRUSE ELLIPTA 62.5 MCG/ACTU* INHALE 1 PUFF INSTRUCTED O* SIMVASTATIN 10 MG TABLET TAKE 1 TABLET BY MOUTH AT BED* ALBUTEROL SULFATE HFA 90 MCG/* Inhale 1 Puff as instructed e* * BUSPIRONE 10 MG TABLET Take 10 mg by mouth three melisa* * ASPIRIN 81 MG TABLET Take one(1) tablet daily. * EFFEXOR XR 150 MG CAPSULE,EXT* Take one(1) tablet daily. Problem List As Of Date 12/01/2017 Noted Resolved LUMBAGO [M54.5] INVALID FOR* COMPLIC MATERIAL MOVER ORTHO DEVICE [T84.89XA] INVALID FOR* PAIN IN LIMB [M79.609] INVALID FOR* CARPAL TUNNEL SYNDROME [G56.00] INVALID FOR* CERVICALGIA [M54.2] INVALID FOR* JOINT PAIN-SHLDER [M25.519] INVALID FOR* HIDRADENITIS [L73.2] INVALID FOR* Unspecified Peripheral Vascular Disease [I73.9] INVALID FOR* Exostosis of unspecified site [M89.8X9] INVALID FOR* Hallux valgus (acquired) [M20.10] INVALID FOR* Folliculitis [L73.9] INVALID FOR* Tobacco use disorder [F17.200] Right wrist fracture [S62.101A] INVALID FOR* Nontoxic uninodular goiter [E04.1] INVALID FOR* PVD (peripheral vascular disease) (HCC) [I73.9] INVALID FOR* Chronic bronchitis (HCC) [J42] INVALID FOR* Bipolar disorder (HCC) [F31.9] INVALID FOR* Gastroesophageal reflux disease [K21.9] INVALID FOR*05/16/2015 Centrilobular emphysema (HCC) [J43.2] INVALID FOR* Hyperlipidemia [E78.5] INVALID FOR* Gastroesophageal reflux disease without esophag*INVALID FOR* Disposition: Return in about 1 year (around 12/01/2018) for Routine TENNIS NET MAKER exam. Follow-up and Disposition History Recorded Encounter Status:Closed by LESA DEL CASTILLO MD on 12/01/17 PROGRESS Observed: 12/01/2017 Status: COMPLETED Source: [place] 3:25 PM [facility] [place] REPOSITORY HNO ID: [id number] Author: Lesa Del Castillo Service: (none) Author Type: Physician Type: Progress Notes Filed: 12/01/2017 4:02 PM Note Text: Matilde Damon is a 52 year old who presents for her annual gynecologic exam without complaints. Postmenopausal: No, menses every 2 months HRT use: No. Last Pap: 2016 normal HPV: n/a History of abnormal pap: No Last mammogram: today History of abnormal mammogram: Yes - h/o breast biopsy Obstetric History T2 L2 SAB0 TAB0 Ectopic0 Multiple0 Live Births0 PAST MEDICAL HISTORY Diagnosis Date - Carpal tunnel syndrome - Depression - Elevated blood pressure reading without diagnosis of hypertension - Generalized anxiety disorder - GERD (gastroesophageal reflux disease) Gastritis - Hyperlipidemia - Peripheral arterial disease (HCC) right leg - PMH - PAST MEDICAL HISTORY OF mild retardation - PMH - PAST MEDICAL HISTORY OF ADD? - PMH - PAST MEDICAL HISTORY OF arthritis - Tobacco use disorder PAST SURGICAL HISTORY Procedure Laterality Date - BALLN ANGIOPLASTY PERC,FEM-POP 2---10 right LEG angioplasty superficial femoral and profunda - BX OF BREAST; INCISIONAL Bx of left breast, incisional- benign - DELIVERY ONLY 1987, 1992 - COLONOSCOP W/ OR W/O [facility] SPEC 09/30/2016 normal - 10 year followup - CORRECT BUNION,SIMPLE Bunion X-2 - EGD W/O OR W/BRUSH/WASH 05/16/15 EGD - LIGATE FALLOPIAN TUBE 08/16/03 Tubal ligation - OPEN RX NAVICULAR FX 05/12/2014 ORIF right wrist - PAST SURGICAL HISTORY OF right 5th digit arthroplasty, foot - REMOVAL GALLBLADDER 1994 open cholecystectomy FAMILY HISTORY Problem Relation Age of Onset - Diabetes Mother - Hypertension Mother - Hypertension Father - Heart Failure Father - Hyperlipidemia Father - Cancer Maternal Aunt Uterine - Diabetes Paternal Aunt - Diabetes Paternal Uncle - Colon Cancer Maternal Grandmother in 70s SOCIAL HISTORY Social History Substance Use Topics - Smoking status: Current Every Day Smoker Packs/day: 1.00 Years: 30.00 Types: Cigarettes - Smokeless tobacco: Never Used Comment: Father smoked in childhood home. Has lived with smokers as an adult. - Alcohol use Yes Comment: Rarely REVIEW OF SYSTEMS Abdomen: No abdominal pain, nausea, vomiting, diarrhea, or constipation. No bloating, early satiety, indigestion, or increased flatulence. Bladder: No dysuria, gross hematuria, urinary frequency, urinary urgency, or incontinence Breast: No breast lumps, nipple d/c, overlying skin changes, redness or skin retraction Allergies and current medication updated:Yes EXAM: There were no vitals taken for this visit. GENERAL: pleasant, female in no apparent distress BREAST: soft, non-tender, symmetric, no dominant mass, normal nipple-areolar complex, no lymphadenopathy and no nipple discharge CHEST: Normal inspiratory effort ABDOMEN: soft, non-tender and no masses PELVIC: external genitalia normal, normal Bartholin's glands, urethra, Bryson's glands, no vulvar lesions, no cervical lesions, normal appearing perineal body and perianal region BIMANUAL: uterus normal size, shape and consistency, no adnexal masses and non-tender RECTOVAGINAL: patient declined. NEURO: alert and oriented x3,exam grossly non-focal EXTREMITIES: normal ASSESSMENT/PLAN: 1) Health maintenance: Pap up to date - repeat in 1-2 years Mammogram up to date Nutrition, exercise and routine health maintenance exams reviewed. Colon cancer screening: up to date with screening 2) Follow up one year or sooner as needed Lesa Del Castillo MD [facility] SCREENING Observed: 12/01/2017 Status: F Source: [place] 3:12 PM [facility] REPOSITORY * * *Final Report* * * DATE OF EXAM: Dec 01 2017 3:12PM WOW 0581 - [facility] SCREENING / PROCEDURE REASON: Encounter for screening mammogram for malignant neoplasm of breast * * * * Physician Interpretation * * * * RESULT: #[id number] - [facility] SCREENING BILATERAL DIGITAL SCREENING MAMMOGRAM WITH CAD: 12/01/2017 HISTORY: Encounter For Screening Mammogram For Malignant Neoplasm Of Breast /priors available for comparison. RESULT: TECHNIQUE: The study was acquired using full field digital technology and interpreted from soft copy. Current study was also evaluated with a Computer Aided Detection (CAD). Comparison is made to exams dated: 09/23/2016 mammogram, 07/29/2013 mammogram - [facility], 05/11/2014 mammogram, and 05/11/2014 ultrasound - [facility]. There are scattered fibroglandular elements in both breasts. No significant masses, calcifications, or other findings are seen in either breast. There has been no significant interval change. IMPRESSION: NEGATIVE There is no mammographic evidence of malignancy. A 1 year screening mammogram is recommended. Rosa harrison/leigha:12/01/2017 15:57:46 Mechanic Sound Technician: Angy YOUNG(Carey)(Michael), [facility] letter sent: Normal over 40 Mammogram BI-RADS: 1 Negative Splitting Machine Operator Helper: Leigha Transcribe Date/Time: Dec 01 2017 3:00P Dictated by: ROSA GILES MD This examination was interpreted and the report reviewed and electronically signed by: ROSA GILES MD on Dec 01 2017 3:57PM EST [id number] PROCEDURE Observed: 12/01/2017 Status: COMPLETED Source: [place] 2:59 PM [facility] REPOSITORY [facility] ID: [id number] Author: Bennett Washington (Rt) Service: (none) Author Type: Culturist Type: Procedures Filed: 12/01/2017 3:00 PM Note Text: Radiology Service Progress Note PATIENT NAME: Matilde Damon DATE OF SERVICE: December 01, 2017 TIME: 2:59 PM PATIENT IDENTITY VERIFICATION COMPLETED USING TWO (2) METHODS: Patient confirmed name verbally and Date of . PATIENT GENDER DATA: Female. status: : No status: NO. PATIENT RELEVANT IMPLANT DATA REVIEWED: Not Applicable RADIOLOGY DEPARTMENT: [facility] IV DATA: Not applicable SIGNED BY: RT Padmini December 01, 2017 2:59 PM PROGRESS Observed: 11/09/2017 Status: COMPLETED Source: [place] 8:09 AM [facility] REPOSITORY HNO ID: [id number] Author: Leo Hassan Service: (none) Author Type: Director Of Income Tax Type: Progress Notes Filed: 11/09/2017 8:16 AM Note Text: Mailed letter to the patient. Leo Hassan MA CNCO Observed: 11/09/2017 Status: COMPLETED Source: [place] 12:00 AM [facility] Letter Text Nir Duque MD [address] [place] [address] Leo Hassan MA, [facility] November 09, 2017 Matilde Damon [address] [facility] [address] Dear Ms. Damon In an effort to serve your healthcare needs, it has come to the attention of Nir Duque MD, your Primary Care Provider, that you are overdue for routine health care. We've attempted to contact you and have been unsuccessful. Please call the office at [phone] to schedule an appointment for Follow Up. In addition, you are due for the following health maintenance(s) Mammogram If any of these routine health care items were completed by an outside facility, please have that office fax the results to [phone] Attn: Nir Duque MD or bring the records with you to your appointment. We will gladly update your record. If you have any questions, please feel free to call the office at [phone] or message us via [employer]. Thank you for choosing the [facility]. Sincerely, Leo Hassan MA, [facility] (electronically signed to expedite mailing) PROGRESS Observed: 11/06/2017 Status: COMPLETED Source: [place] 11:42 AM [facility] [place] REPOSITORY HNO ID: [id number] Author: Leo Hassan Service: (none) Author Type: Director Of Income Tax Type: Progress Notes Filed: 11/09/2017 8:16 AM Note Text: I have attempted to contact this patient by phone to return their call, schedule an appointment, discuss lab results, etc. Left message to call back. PROGRESS Observed: 11/05/2017 Status: COMPLETED Source: [place] 2:47 PM [facility] REPOSITORY HNO ID: [id number] Author: Leo Hassan Service: (none) Author Type: Director Of Income Tax Type: Progress Notes Filed: 11/09/2017 8:16 AM Note Text: I have attempted to contact this patient by phone to return their call, schedule an appointment, discuss lab results, etc. Left message to call back. Leo Hassan MA PROGRESS Observed: 11/03/2017 Status: COMPLETED Source: [place] 1:14 PM [facility] REPOSITORY HNO ID: [id number] Author: Leo Hassan Service: (none) Author Type: Director Of Income Tax Type: Progress Notes Filed: 11/09/2017 8:16 AM Note Text: I have attempted to contact this patient by phone to return their call, schedule an appointment, discuss lab results, etc. Left message to call back. Leo Hassan MA PROGRESS Observed: 11/02/2017 Status: COMPLETED Source: [place] 11:31 AM [facility] REPOSITORY HNO ID: [id number] Author: Nir Duque Service: (none) Author Type: Physician Type: Progress Notes Filed: 11/09/2017 8:16 AM Note Text: Lab ordred. Patient Outreach on 11/02/17 -[facility] SCREENING -COMP METABOLIC PANEL -LIPID PANEL BASIC Mammogram re-ordered if she can schedule that. Nir Duque MD PROGRESS Observed: 11/02/2017 Status: COMPLETED Source: [place] 10:00 AM [facility] REPOSITORY HNO ID: [id number] Author: Leo Hassan Service: (none) Author Type: Director Of Income Tax Type: Progress Notes Filed: 11/09/2017 8:16 AM Note Text: [facility] TEAMLET DOCUMENTATION Provider Action/FYI: Patient needs appointment and labs ordered PSR Action/F Please schedule appointment Teamlet has identified patient by name and date of . Team: DR. DUQUE, Leo Hassan MA ? Last Office Visit:Visit date not found ? Next Office Visit: Visit date not found ? Last BP/Labs: Blood Pressure: Last 3 Encounter BP Readings: Date: BP: 07/07/2017 142/90 09/24/2016 138/80 09/18/2016 130/71 Lipids: Cholesterol, Total (mg/dL) Date Value 11/28/2016 158 04/17/2014 126 HDL Cholesterol (mg/dL) Date Value 11/28/2016 31 04/17/2014 43 LDL Cholesterol (mg/dL) Date Value 11/28/2016 87 04/17/2014 63 Triglyceride (mg/dL) Date Value 11/28/2016 201 04/17/2014 99 HGB A1C: Lab Results Component Value Date HBA1C 6.3 06/20/2008 TSH: TSH (uU/mL) Date Value 04/17/2014 1.290 04/01/2004 0.955 ) Care Gap: HTN - Last BP NOT under 140/90 Plan: ? Confirm PCP / Status ? Type of appointment needed: Follow-up with Provider Judy ? Consultation Appointments: No patient outreach needed at this time ? Labs, HM and Immunization: Labs: CMP Mammogram lipid Leo Hassan MA CNPTOUTREACH Observed: 11/02/2017 Status: COMPLETED Source: [place] 12:00 AM [facility] REPOSITORY Patient Outreach (FAMPWS) MATILDE DAMON ([id number]) 1965 F Date Time Provider Department 11/02/17 LEO HASSAN) AGUSTINWS During your visit today, we recorded the following information about you: Leo Hassan MA 11/09/2017 8:16 AM Signed PHMA TEAMLET DOCUMENTATION Provider Action/FYI: Patient needs appointment and labs ordered PSR Action/F Please schedule appointment Teamlet has identified patient by name and date of . Team: DR. DUQUE, Leo Hassan MA ? Last Office Visit:Visit date not found ? Next Office Visit: Visit date not found ? Last BP/Labs: Blood Pressure: Last 3 Encounter BP Readings: Date: BP: 07/07/2017 142/90 09/24/2016 138/80 09/18/2016 130/71 Lipids: Cholesterol, Total (mg/dL) Date Value 11/28/2016 158 04/17/2014 126 HDL Cholesterol (mg/dL) Date Value 11/28/2016 31 04/17/2014 43 LDL Cholesterol (mg/dL) Date Value 11/28/2016 87 04/17/2014 63 Triglyceride (mg/dL) Date Value 11/28/2016 201 04/17/2014 99 HGB A1C: Lab Results Component Value Date HBA1C 6.3 06/20/2008 TSH: TSH (uU/mL) Date Value 04/17/2014 1.290 04/01/2004 0.955 ) Care Gap: HTN - Last BP NOT under 140/90 Plan: ? Confirm PCP / Status ? Type of appointment needed: Follow-up with Provider Judy ? Consultation Appointments: No patient outreach needed at this time ? Labs, HM and Immunization: Labs: CMP Mammogram lipid EDIE Wick MD 11/09/2017 8:16 AM Signed Lab ordred. Patient Outreach on 11/02/17 -[facility] SCREENING -COMP METABOLIC PANEL -LIPID PANEL BASIC Mammogram re-ordered if she can schedule that. MD Leo Hebert MA 11/09/2017 8:16 AM Signed I have attempted to contact this patient by phone to return their call, schedule an appointment, discuss lab results, etc. Left message to call back. EDIE Wick MA 11/09/2017 8:16 AM Signed I have attempted to contact this patient by phone to return their call, schedule an appointment, discuss lab results, etc. Left message to call back. EDIE Wick MA 11/09/2017 8:16 AM Signed I have attempted to contact this patient by phone to return their call, schedule an appointment, discuss lab results, etc. Left message to call back. Leo Hassan MA 11/09/2017 8:16 AM Signed Mailed letter to the patient. Leo Hassan MA Allergies As of Date: 11/02/2017 (No Known Allergies) Date Reviewed: 07/07/2017 Reviewed by: Lesa Del Castillo - Fully Assessed Reason for Visit: PHMA/Care Gap Outreach [3605] Primary Visit Diagnosis:Mixed hyperlipidemia [E78.2] Other Visit Diagnoses:Peripheral vascular disease, unspecified (HCC) [I73.9] Screening mammogram, encounter for [Z12.31] Order(s):COMP METABOLIC PANEL [SQCMP] Order #: [id number] FUTURE LIPID PANEL BASIC [SQLIPB] Order #: [id number] FUTURE DARLYN SCREENING [7291964] Order #: [id number] FUTURE Prescriptions as of 11/02/2017 Sig: OMEPRAZOLE 20 MG CAPSULE,VENECIA* TAKE 1 CAPSULE BY MOUTH ONCE * INCRUSE ELLIPTA 62.5 MCG/ACTU* INHALE 1 PUFF INSTRUCTED O* SIMVASTATIN 10 MG TABLET TAKE 1 TABLET BY MOUTH AT BED* ALBUTEROL SULFATE HFA 90 MCG/* Inhale 1 Puff as instructed e* * BUSPIRONE 10 MG TABLET Take 10 mg by mouth three melisa* * ASPIRIN 81 MG TABLET Take one(1) tablet daily. * EFFEXOR XR 150 MG CAPSULE,EXT* Take one(1) tablet daily. Problem List As Of Date 11/02/2017 Noted Resolved LUMBAGO [M54.5] INVALID FOR* COMPLIC MATERIAL MOVER ORTHO DEVICE [T84.89XA] INVALID FOR* PAIN IN LIMB [M79.609] INVALID FOR* CARPAL TUNNEL SYNDROME [G56.00] INVALID FOR* CERVICALGIA [M54.2] INVALID FOR* JOINT PAIN-SHLDER [M25.519] INVALID FOR* HIDRADENITIS [L73.2] INVALID FOR* Unspecified Peripheral Vascular Disease [I73.9] INVALID FOR* Exostosis of unspecified site [M89.8X9] INVALID FOR* Hallux valgus (acquired) [M20.10] INVALID FOR* Folliculitis [L73.9] INVALID FOR* Tobacco use disorder [F17.200] Right wrist fracture [S62.101A] INVALID FOR* Nontoxic uninodular goiter [E04.1] INVALID FOR* PVD (peripheral vascular disease) (HCC) [I73.9] INVALID FOR* Chronic bronchitis (HCC) [J42] INVALID FOR* Bipolar disorder (HCC) [F31.9] INVALID FOR* Gastroesophageal reflux disease [K21.9] INVALID FOR*05/16/2015 Centrilobular emphysema (HCC) [J43.2] INVALID FOR* Hyperlipidemia [E78.5] INVALID FOR* Gastroesophageal reflux disease without esophag*INVALID FOR* Follow-up and Disposition History Recorded Encounter Status:Closed by LEO HASSAN on 11/09/17 SYPHILIS IGG WITH Collected: 07/07/2017 Status: F Source: [facility] 11:15 AM [facility] REPOSITORY TYPE CODE TESTS RESULT OUT OF REFERENCE UNITS RANGE LAB SYPHQL Nonreactive Syphilis IgG, Nonreactive Qual Result Comment: In conjunction with this result, the immune status of the patient should be evaluated based on their clinical status, related risk factors, and other diagnostic test results. LAB SYPHLG AI Syphilis IgG <0.2 Result Comment: Antibody index is interpreted as follows: Non reactive SPECIMENS <=0.8 Weak reactive SPECIMENS 0.9 to 5.9 Reactive SPECIMENS >=6.0 Performed By: #### SYPHGX, HBSAG, HIV12C, HCQPCR #### [facility] [employer] [address] [place], [place] [address] HEPATITIS B SURF. AG Collected: 07/07/2017 Status: F Source: [place] 11:15 AM [facility] REPOSITORY TYPE CODE TESTS RESULT OUT OF REFERENCE UNITS RANGE LAB HBSAG Negative Hepatitis B Negative Surf. Ag Performed By: #### SYPHGX, HBSAG, HIV12C, HCQPCR #### [facility] [employer] [address] [place], [place] [address] HIV 12 COMBO (AG/AB) Collected: 07/07/2017 Status: F Source: [place] 11:15 AM [facility] REPOSITORY TYPE CODE TESTS RESULT OUT OF REFERENCE UNITS RANGE LAB HVAGAB Non Reactive HIV Non Reactive 12 Ag/Ab Result Comment: (NOTE) HIV Information: [place] Rev. Code 3701.243(E): This information has been disclosed to you from confidential records protected from disclosure by state law. You shall make no further disclosure of this information without the specific, written, and informed release of the individual to whom it pertains, or as otherwise permitted by state law. A general authorization for the release of medical or other information is not sufficient for the purpose of the release of HIV test results or diagnoses. Performed By: #### SYPHGX, HBSAG, HIV12C, HCQPCR #### [address] [address] HEPATITIS C RNA Collected: 07/07/2017 Status: F Source: [place] 11:15 AM [facility] REPOSITORY TYPE CODE TESTS RESULT OUT OF REFERENCE UNITS RANGE LAB HCQPCR IU/mL Hepatitis C RNA HCV RNA not detected by PCR. Result Comment: Reference Range: Negative for HCV RNA The Linear Range of this assay is 15 IU/mL to 100,000,000 IU/mL. Performed By: #### SYPHGX, HBSAG, HIV12C, HCQPCR #### [address] [address] GC/CHLAMYDIA AMPLIF Collected: 07/07/2017 Status: F Source: [place] 11:00 AM [facility] REPOSITORY TYPE CODE TESTS RESULT OUT OF REFERENCE UNITS RANGE LAB GCCTSR GC/Chlam Amp [facility] Source LAB GCAMPL GC Negative Amplification for Neisseria gonorrhoeae by amplification. LAB CLAMPL Chlamydia Negative Amplif for Chlamydia trachomatis by amplification. Performed By: #### GCCT #### [place] [address] PROGRESS Observed: 07/07/2017 Status: COMPLETED Source: [place] 10:21 AM [facility] REPOSITORY HNO ID: [id number] Author: Lesa Del Castillo Service: (none) Author Type: Physician Type: Progress Notes Filed: 07/07/2017 11:10 AM Note Text: Matilde Damon is a 52 year old female who presents for STD check. HPI: Patient presents for STD check. She denies vaginal itching, burning or odor. Patient had a new partner AND would like checked. She declines other vaginal infection checks. PAST MEDICAL HISTORY Diagnosis Date - Carpal tunnel syndrome - Depression - Elevated blood pressure reading without diagnosis of hypertension - Generalized anxiety disorder - GERD (gastroesophageal reflux disease) Gastritis - Hyperlipidemia - Peripheral arterial disease (HCC) right leg - PMH - PAST MEDICAL HISTORY OF mild retardation - PMH - PAST MEDICAL HISTORY OF ADD? - PMH - PAST MEDICAL HISTORY OF arthritis - Tobacco use disorder PAST SURGICAL HISTORY Procedure Laterality Date - BALLN ANGIOPLASTY PERC,FEM-POP 2-22--10 right LEG angioplasty superficial femoral and profunda - BX OF BREAST; INCISIONAL Bx of left breast, incisional- benign - DELIVERY ONLY 1987, 1992 - COLONOSCOP W/ OR W/O BRSH SPEC 09/30/2016 normal - 10 year followup - CORRECT BUNION,SIMPLE Bunion X-2 - EGD W/O OR W/BRUSH/WASH 05/16/15 EGD - LIGATE FALLOPIAN TUBE 08/16/03 Tubal ligation - OPEN RX NAVICULAR FX 05/12/2014 ORIF right wrist - PAST SURGICAL HISTORY OF right 5th digit arthroplasty, foot - REMOVAL GALLBLADDER 1993 open cholecystectomy FAMILY HISTORY Problem Relation Age of Onset - Diabetes Mother - Hypertension Mother - Hypertension Father - Heart Failure Father - Hyperlipidemia Father - Cancer Maternal Aunt Uterine - Diabetes Paternal Aunt - Diabetes Paternal Uncle - Colon Cancer Maternal Grandmother in 70s Social History Marital status: Spouse name: Years of education: Number of children: 2 Occupational History Occupation Employer Comment Disabled-mental il* Social History Main Topics Smoking status: Current Every Day Smoker Packs/day: 1.00 Years: 30.00 Types: Cigarettes Smokeless status: Never Used Comment: Father smoked in childhood home. Has lived with smokers as an adult. Alcohol use: Yes Comment: Rarely Drug use: No Sexual activity: Yes Partners with: Male control/protection: Tubal Ligation Current Outpatient Prescriptions: simvastatin (ZOCOR) 10 mg tablet TAKE 1 TABLET BY MOUTH AT BEDTIME INCRUSE ELLIPTA 62.5 mcg/actuation inhaler INHALE 1 PUFF INSTRUCTED ONCE DAILY. omeprazole (PRILOSEC) 20 mg capsule Take 1 capsule by mouth once daily. albuterol HFA (PROVENTIL HFA, VENTOLIN HFA) 90 mcg/actuation inhaler Inhale 1 Puff as instructed every 4 hours as needed for Wheezing/Shortness of Breath. busPIRone (BUSPAR) 10 mg ORAL tablet Take 10 mg by mouth three times daily. ASPIRIN 81 MG TAB Take one(1) tablet daily. venlafaxine hcl(EFFEXOR XR 150 MG 24 HR CAP) Take one(1) tablet daily. No current facility-administered medications for this visit. Allergies As of Date: 07/07/2017 (No Known Allergies) Fully Assessed 10/01/2016 REVIEW OF SYSTEMS Abdomen: No bloating, early satiety, indigestion, or increased flatulence. No abdominal pain, nausea, vomiting, diarrhea, or constipation. Bladder: No dysuria, gross hematuria, urinary frequency, urinary urgency, or incontinence. Breast: No breast lumps, nipple d/c, overlying skin changes, redness or skin retraction. Expanded ROS: N/A Allergies and current medication updated:Yes EXAM: There were no vitals taken for this visit. GENERAL: pleasant, female in no apparent distress CHEST: Normal inspiratory effort PELVIC: external genitalia normal, no vulvar lesions, no cervical lesions, normal appearing perineal body and perianal region NEURO: alert and oriented x3,exam grossly non-focal EXTREMITIES: normal ASSESSMENT AND PLAN: 52yo female for STD testing STD panel ordered Lesa Del Castillo MD ALLERGIES ALLERGIES DATE TYPE / CODE NAME / CODE REACTION SEVERITY SOURCE 06/05/2018 Drug No Known Unknown [facility] Allergy/416 Allergies/I32991 Hospital 406432(SNOM 0388(RXNORM) Repository ED CT) Drug NO KNOWN [facility] Class/63391 ALLERGIES [facility] 1003(SNOMED Repository CT) ENCOUNTERS ENCOUNTERS ADMIT/DISCHARGE ACCOUNT ADMITTING ENCOUNTER LOCATION SOURCE NUMBER CLASS 06/09/2018/06/09/19 [id number] Emergency [address] ing:ED Repository 06/05/2018/06/05/19 [id number] Emergency [address] ing:ED Repository 02/12/2018/02/16/20 [id number] Ambulatory [address] Repository 12/01/2017/12/03/19 [id number] Ambulatory [address] Repository 12/01/2017/12/02/19 [id number] Ambulatory [address] Repository 07/07/2017 [id number] Ambulatory [facility] Repository 07/07/2017/07/09/19 [id number] Ambulatory [address] Repository PAYERS PAYERS ENCOUNTER GUARANTOR PAYER SUBSCRIBER SOURCE 06/09/2018 MATILDE Candelario [id number] Insurance:MEDICARE [place]: Community [address] [facility] [id number] Number: Repository [address]Asl: 330 [id number] [phone] () Date:2018-06-09 06/09/2018 Secondary NOT GIVENUNK [place] Insurance:SELF PAY [facility] Number: Effective Repository Date:2018-06-09 06/05/2018 MATILDE Candelario [id number] Insurance:MEDICARE [place]: Community [address] [facility] [id number] Number: Repository [id number]: 330 [id number] [phone] () Date:2018-06-05 06/05/2018 Secondary NOT GIVENUNK [place] Insurance:SELF PAY [facility] Number: Effective Repository Date:2018-06-05
== END 2018-06-09 01:33 | disposition home or self-care (01) ==
PROVIDERS: Emergency Provider Emergency Medicine; Family Provider Family Medicine; PCP Family Medicine
DX: S52.502D Unspecified fracture of the lower end of left radius, subsequent encounter for closed fracture with routine healing (principal); W19.XXXD Unspecified fall, subsequent encounter; J44.9 Chronic obstructive pulmonary disease, unspecified; F32.9 Major depressive disorder, single episode, unspecified; F41.9 Anxiety disorder, unspecified; Z72.0 Tobacco use
CPT/HCPCS: 99282

== ENCOUNTER 2018-09-09 10:30 | Outpatient (RCR) | payer MEDICARE, MEDICAID, SELFPAY ==
--- NOTE | 2018-07-15 16:41 | HP.OTEVAL_ITS ---
Patient's Visit Information GUANACO GARRETT is a 53 year old F, referred to Occupational Therapy by BRIDGETTE RANDOLPH, with a diagnosis of L wrist fx. Date of Evaluation: 07/15/18 Occupational Therapist: Zulma Cantu - Subjective Subjective: Pt seen for initial occupational therapy evalution after suffering distal radius fx 06/11/18 from mechanical fall. Pt had ORIF L wrist 06/25/18. Pt has niece living with her and neighbors assist as needed with IADLs. Pt completing all BADLs on her own at this time with extra time needed. Pt right hand dominent. - Pain L wrist 3 - Objective Objective/Observation: Pt demo increased edema L hand/wrist, decreased ROM and strength L hand/wrist. - ROM Wrist: L 35/36 R 60/91 - Strength Marketing Finance Manager: L DNT, R 70# Lateral Pinch: L DNT, R 9# Tripod Pinch: L DNT, R 8# - Edema Other: L hand slight edema noted. - Sensation Sensation Comments: Pt states no numbness or tingling - Quick DASH-Disab of Arm,Shoulder& Hand Quick DASH Score: 25.0000 - Goals Goal:100% adherence to protocol: Yes Goal:Daily scar massage when approriate: Yes Goal:ROM equal to unaffected hand: Yes Goal:Marketing Finance Manager/Pinch strength at least 75% of unaffected hand: Yes Goal:No pain with affected hand use: Yes Goal:Full use of affected hand in daily activities including: Yes Other Goal: Pt will be educated on L UE HEP with good understanding and demo 100%x. - Rehabilitation General Assessment: Pt demo decreased L wrist ROM and strength, increased pain L wrist. Pt would benefit from direct occupational therapy services to follow 's protocol for L wrist ORIF, increase L wrist AROM, increase L wrist/hand strength, educate on scar mgnmt, and HEP, decrease L wrist pain to increase pts quality of life and return to completing all functional living tasks and hobbies as prior Rehabilitation Potential: Good - Anticipated Interventions Anticipated Interventions: A/AAROM/PROM, Strengthening, Edema Control, Scar Care, Massage, Modalities, Orthoses, Joint Protection/Energy Conservation, Fine Motor Coord/José Miguel, ADL Training, Education re Diagnosis, Education re Skin Care and Precautions, Education re Self Massage Techniques, Education re Correct Donning Tech,Care&Wearing Sched Comp Garments, Home Program - Visit Plan Frequency: 1-2x /Week Duration: 4-6 Weeks General Plan: Pt would benefit from direct occupational therapy services to follow 's protocol for L wrist ORIF, increase L wrist AROM, increase L wrist/hand strength, educate on scar mgnmt, and HEP, decrease L wrist pain to increase pts quality of life and return to completing all functional living tasks and hobbies as prior. TEXT: Thank you for the opportunity to evaluate your patient. For Medicare and Medicare HMO plans, please review the plan of care and approve it. It will need to be FAXED BACK to us at [phone] for Medicare purposes. Please let me know if there are questions or concerns regarding this plan of care. Physician Signature: Date:
--- NOTE | 2018-08-25 11:25 | HP.OTREVAL ---
BRIDGETTE RANDOLPH, It has been my pleasure to treat GUANACO GARRETT over the last 11 visits for L wrist fx. Please see the progress note below for an update on the occupational therapy plan of care! Subjective: Pt done with working with PATEL and now ready for OT re-eval with OTR. Pt educated on OT POC and need for re-evaluation, pt demo good understanding. Objective/Function: Pt making good progress with OT POC. Pt has been educated on diagnosis and HEP for L UE to complete at home. Pt states she is doing well with BADLs/IADLs independently. Pt has progressed with L wrist AROM 60/85. Pt continues to demo decreased L UE hand strength with a L accounting advisory services manager strength 35# (R 70#) and lateral pinch of 4# (R 9#). Pt would continue to benefit from direct occupational therapy services to increase L hand accounting advisory services manager strength, pinch strength to increase functional use of L UE. Pt would continue to benefit from OT services to minimize pain in L wrist and educate on L UE HEP with good understanding and demo as her strength continues to progress to increase pt's quality of life. 1-2x/wk x 4wks Plan Frequency: 1-2x /Week Duration: 4 Weeks Plan: cont POC focusing on strengthing Goals - Goals Other Goal: Pt will be educated on L UE HEP with good understanding and demo 100%x. Anticipated Interventions Anticipated Interventions: A/AAROM/PROM, Strengthening, Edema Control, Scar Care, Massage, Modalities, Orthoses, Joint Protection/Energy Conservation, Fine Motor Coord/José Miguel, ADL Training, Education re Diagnosis, Education re Skin Care and Precautions, Education re Self Massage Techniques, Education re Correct Donning Tech,Care&Wearing Sched Comp Garments, Home Program Please do not hesitate to contact me at [phone] by phone or if you have questions or concerns regarding this new plan of care! Sincerely, Zulma Cantu
== END 2018-09-09 19:00 | disposition home or self-care (01) ==
LOC: OT 10:30
PROVIDERS: Family Provider Family Medicine; PCP Family Medicine
DX: S52.502D Unspecified fracture of the lower end of left radius, subsequent encounter for closed fracture with routine healing (principal); Z96.7 Presence of other bone and tendon implants; Z87.81 Personal history of (healed) traumatic fracture
CPT/HCPCS: 97110; 97140; 97165; 97166; 97168

== ENCOUNTER 2019-10-11 17:39 | Emergency (ER) | payer MEDICARE, MEDICAID, SELFPAY ==
[2019-10-11 17:39] VITALS: BP 107/54; PULSE 110; RESP 20; TEMP 36.5; O2SAT 95; BMI 33.4
[2019-10-11] MEDS: Amox/Clavulanate 875 MG Tablet PO (18:29)
[2019-10-11] MEDS: Diphth,Pertuss(Acell),Tet Vac 0.5 ML Vial IM (18:29)
--- NOTE | 2019-10-11 19:12 | ED.DEP ---
ED Disposition - Plan for ED Patient: Instructions: ED BITE Dog Prescriptions: Amox/Clavulanate Tablet [Augmentin Tablet] 875 mg PO Q12H #20 tablet Referrals: Dk Israel MD [Primary Care Provider] -
--- NOTE | 2019-10-11 19:18 | ED.DCSUM_ITS ---
- ER Visit Summary Date of Service: 10/11/19 Chief Complaint: Dog bite History of Present Illness: The patient is a 54 F presenting with dog bite to right forearm. This occurred just prior to arrival. Patient states she went to pet her neighbor's dog and it bit her right forearm. She denies other injuries. Last tetanus is unknown. Physical Examination: Vitals are stable. Patient is afebrile. Alert no acute distress. HEENT exam is unremarkable. Neck is supple. Lungs are clear and equal bilaterally. Heart is regular rate and rhythm. Extremities 5 cm wound right volar forearm with partial skin avulsion. Tendon function is normal. Neurovascularly intact distally. Skin is warm and dry. No focal neurologic deficit. Remainder of exam is unremarkable. Emergency Department Course and Treatment: Wound was copiously irrigated. Ane sthetized with lidocaine. Approximated with 5, 4-0 simple sutures. Patient was given tetanus IM. She is given Augmentin. Advised follow-up with primary care physician. Advised return to ED for worsening complaints. Disposition: Discharge home Impression: Dog bite right forearm, laceration repair This note was generated with [employer] dictation software. It may contain incorrect words, spelling, and punctuation that were not noted in review of the chart prior to signing ED Disposition - Plan for ED Patient: Instructions: ED BITE Dog Prescriptions: Amox/Clavulanate Tablet [Augmentin Tablet] 875 mg PO Q12H #20 tab Prescription Printed Referrals: Dk Israel MD [Primary Care Provider] -
--- OUTSIDE RECORDS SUMMARY | 2020-03-06 13:59 | XMS RPT_ITS | CCD ---
:1965 External Reference #:[id number] Author Organization [facility] Care Team Providers Name Role Phone Joaquín Israel Primary Care Provider Medications Medication Name Sig Date Prescriber Location albuterol HFA albuterol HFA [facility] (PROVENTIL HFA, (PROVENTIL HFA, Joseph ([facility]) Jareth ([phone]) VENTOLIN HFA) 90 VENTOLIN HFA) 90 mcg/actuation mcg/actuation inhaler inhaler Indications: Chronic obstructive pulmonary disease, unspecified COPD type ([facility]) Inhale 1 Puff as instructed every 4 hours as needed for Wheezing/Shortness of Breath. 1 Inhaler 5 09/01/2019 Active Comment: Inhale 1 Puff as instructed every 4 hours as needed for Wheezing/Shortness of Breath. Aspirin aspirin, enteric coated 11-29-2019 [facility] (ASPIRIN, ENTERIC Jo ([facility]) Heidi ([phone]) COATED) 81 mg EC tablet Take 1 tablet by mouth once daily. 0 11/29/2019 Active Comment: Take 1 tablet by mouth once daily. atorvastatin atorvastatin (LIPITOR) 10-26-2019 Joaquín Israel [facility] 20 mg tablet Joaquín Israel ([id number]) Indications: Mixed hyperlipidemia Take 1 tablet by mouth once daily. 30 tablet 11 10/26/2019 Active Comment: Take 1 tablet by mouth once daily. busPIRone busPIRone (BUSPAR) 10 02-12-2018 Joaquín Israel [facility] mg tablet Indications: Joaquín Israel ([id number]) Bipolar affective disorder, remission status unspecified (HCC) Take 1 tablet by mouth twice daily. 0 02/12/2018 Active Comment: Take 1 tablet by mouth twice daily. Omeprazole omeprazole (PRILOSEC) 20 02-07-2019 - Lalit Ellis [facility] mg capsule Indications: 01-18-2020 Philip ([phone]) Gastroesophageal reflux disease without esophagitis Take 1 capsule by mouth once daily. 30 capsule 11 01/18/2020 Active Comment: Take 1 capsule by mouth once daily. tiotropium tiotropium (SPIRIVA 11-30-2019 Joaquín Israel [facility] RESPIMAT) 2.5 Joaquín Israel ([id number]) mcg/actuation inhaler Inhale 2 Puffs as instructed once daily. Inhale two puffs once daily. 1 Inhaler 5 11/30/2019 Active Comment: Inhale 2 Puffs as instructed once daily. Inhale two puffs once daily. venlafaxine venlafaxine hcl(EFFEXOR 03-14-2009 Deborarobbin Magana C [facility] XR 150 MG 24 HR CAP) Debora Magana ([phone]) Take one(1) tablet daily. 0 03/14/2009 Active Comment: Take one(1) tablet daily. Problems Active Problems Category Problem Name Status Date Location Acquired foot Acquired hallux valgus Active 07-02-2011 - [facility] deformities (56536) Chronic obstructive Centriacinar emphysema Active 04-26-2015 - [facility] pulmonary disease and (03704 ) bronchiectasis Disorders of lipid Hyperlipidemia Active 09-24-2016 - [facility] metabolism (44395) Esophageal disorders Gastroesophageal reflux Active - [facility] disease without (82447) esophagitis Mood disorders Bipolar disorder Active 04-26-2015 - [facility] (25230) Other nervous system Carpal tunnel syndrome Active 12-11-2006 - [facility] disorders (85805) Peripheral and visceral Peripheral vascular Active 05-15-2009 - [facility] atherosclerosis disease (68351) Residual codes; Tobacco user Active [facility] unclassified (86835) Thyroid disorders Non-toxic uninodular Active 05-28-2014 - [facility] goiter (51456) Past or Other Problems Category Problem Name Status Date Location Complication of device; Disorders of Completed 04-01-2005 - [facility] implant or graft musculoskeletal (04808) implants and repairs Fracture of upper limb Fracture at wrist Completed 05-11-2014 - [facility] and/or hand level (68651) Other bone disease and Exostosis Completed 07-02-2011 - [facility] musculoskeletal (46720) deformities Other connective tissue Pain in limb Completed 04-01-2005 - [facility] disease (57651) Other non-traumatic Shoulder joint pain Completed 02-12-2007 [facility] joint disorders (10852) Other skin disorders Folliculitis Completed 09-08-2013 - [facility] (11761) Other skin disorders Hidradenitis Completed 11-09-2007 - [facility] (43417) Spondylosis; Neck pain Completed 10-28-2004 - [facility] intervertebral disc (42388) disorders; other back problems Results Result Name Value Range Unit Interpretation Flag Date Location obsolete on 2019-12 OBSOLETE Refill (FAMPWS) Normal 01-18-2020 [facility] MATILDE DAMON ([id number]) 1965 [facility] [place] [facility] Time Provider Department ([id number]) 01/18/20 JOAQUÍN ISRAEL FAMPWS During your visit today, we recorded the following informati on about you: Leighann Felder RN, RN 01/18/2020 11:12 AM Signed Patient has been identified by name and date of : Yes Pharmacy phones for refill(s): Pending Prescriptions Disp Refills OMEPRAZOLE 20 MG CAPSULE,DELAYED RELEASE 30 capsule 11 Sig: Take 1 capsule by mouth once daily. MELANI: No Date of last office visit in primary care: 11/29/19 Last 2 Encounter Wt Readings: Date: Wt: 11/29/2019 106.1 kg (234 lb) 05/13/2019 107 kg (236 lb) Previous labs/tests for medication: Not applicable Please advise. Thank you. JASON Mckay, KHURRAM.LEAD OXIDE MILL TENDER, SAND WORKER.LEAD OXIDE MILL TENDER 01/18/2020 12:20 PM Signed The following approved medic ation requests have been transmitted electronically. Pending Prescriptions Disp Refills OMEPRAZOLE 20 MG CAPSULE,DELAYED RELEASE 30 capsule 11 Sig: Take 1 capsule by mouth once daily. MELANI: No Marco A Poe DNP.LEAD OXIDE MILL TENDER Allergies As of Date: 01/18/2020 (No Known Allergies) Date Reviewed: 11/29/2019 Reviewed by: Ramonita Acosta LPN - Fully Assessed Reason for Visit: Refill Request [94] Visit Diagnosis:Gastroesophageal reflux disease without es ophagitis [K21.9] Order(s):omeprazole (PRILOSEC) 20 mg capsuleTake 1 capsule b y mouth once daily.Disp: 30 capsuleRfl: 11 Prescriptions as of 01/18/2020 Sig: OMEPRAZOLE 20 MG CAPSULE,VENECIA* Take 1 capsule by mouth once * SPIRIVA RESPIMAT 2.5 MCG/ACTU* Inhale 2 Puffs as instructed * ASPIRIN 81 MG TABLET,DELAYED * Take 1 tablet by mouth once d * ATORVASTATIN 20 MG TABLET Take 1 tablet by mouth once d* ALBUTEROL SULFATE HFA 90 MCG/* Inhale 1 Puff as instructed e * BUSPIRONE 10 MG TABLET Take 1 tablet by mouth twice * * EFFEXOR XR 150 MG CAPSULE,EXT* Take one(1) tablet daily. Problem List As Of Date 01/18/2020 Noted Resolved LUMBAGO [M54.5] 10/28/2004 COMPLIC SURGICAL CODER ORTHO DEVICE [T84.89XA] 04/01/2005 PAIN IN LIMB [M79.609] 04/01/2005 CARPAL TUNNEL SYNDROME [G56.00] 12/11/2006 CERVICALGIA [M54.2] 02/12/2007 JOINT PAIN-SHLDER [M25.519] 02/12/2007 HIDRADENITIS [L73.2] 11/09/2007 Unspecified Peripheral Vascular Disease [I73.9] 05/15/2009 Exostosis of unspecified site [M89.8X9] 07/02/2011 Hallux valgus (acquired) [M20.10] 07/02/2011 Folliculitis [L73.9] 09/08/2013 Tobacco use disorder [F17.200] Right wrist fracture [S62.101A] 05/11/2014 Nontoxic uninodular goiter [E04.1] 05/28/2014 PVD (peripheral vascular disease) ([facility]) [I73.9] 04/26/2015 Chronic bronchitis (HCC) [J42] 04/26/2015 Bipolar disorder (HCC) [F31.9] 04/26/2015 Gastroesophageal reflux disease [K21.9] 05/16/2015 5 Centrilobular emphysema (HCC) [J43.2] 06/08/2015 Hyperlipidemia [E78.5] 09/24/2016 Gastroesophageal reflux disease without esophag*09/24/2016 Prescriptions ordered this encounter Disp Refills Start End OMEPRAZOLE 20 MG CAPSULE,DELAYED REL* 30 c* 11 01/18/2020 Route: ORAL Sig: Take 1 capsule by mouth once daily. Medications Discontinued During This Encounter Prescriptions - omeprazole (PRILOSEC) 20 mg capsule (Discontinued) Take 1 capsule by mouth once daily. Encounter Status:Closed by MARCO A POE DNP [facility]30 [facility] Telephone (FAMPWS) Normal 11-30-2019 [facility] MATILDE DAMON ([id number]) 1965 [facility] Date Time Provider Department ([id number]) 11/30/19 [address] [facility] During your visit today, we recorded the following informati on about you: Ramonita Acosta LPN 11/30/2019 5:15 PM Signed ----- Message from Jo ([facility]) Heidi sent at 11/30/2019 1 2:44 PM EDT ----- Can please let patient know that I received her labs. Her magnesium level is normal. The A1C (3 month average blood sugar) was 6.3 for an a verage glucose of 134, which is in the prediabetic range. The best evidence to prevent development transformatio n to overt diabetes is weight loss. The [place] [employer] has now appro cara a practice standard of started a medication called metformin for blood sugars in this range. This medication is safe and effective. My practice is to encourage healthy eating, weight loss and rechecks. If the hgba1c is higher than 6% I would consider metformin. Metformin is known to help with weight loss. Please let me know if you would like to pursue the metformin. Thanks, Jo Gordon APRN.EARLENE Acosta LPN 11/30/2019 5:16 PM Signed See message below, Left message to call office. 11/30/2019 5:1 6 PM. Ramonita Rose LPN 12/01/2019 9:59 AM Signed notified with understanding. Allergies As of Date: 11/30/2019 (No Known Allergies) Date Reviewed: 11/29/2019 Reviewed by: Ramonita Acosta LPN - Fully Assessed Reason for Visit: Results [95] Cmt: Labs Prescriptions as of 11/30/2019 Sig: SPIRIVA RESPIMAT 2.5 MCG/ACTU* Inhale 2 Puffs as instructed * ASPIRIN 81 MG TABLET,DELAYED * Take 1 tablet by mouth once d * ATORVASTATIN 20 MG TABLET Take 1 tablet by mouth once d* ALBUTEROL SULFATE HFA 90 MCG/* Inhale 1 Puff as instructed e * OMEPRAZOLE 20 MG CAPSULE,VENECIA* Take 1 capsule by mouth once * BUSPIRONE 10 MG TABLET Take 1 tablet by mouth twice * * EFFEXOR XR 150 MG CAPSULE,EXT* Take one(1) tablet daily. Problem List As Of Date 11/30/2019 Noted Resolved LUMBAGO [M54.5] 10/28/2004 COMPLIC SURGICAL CODER ORTHO DEVICE [T84.89XA] 04/01/2005 PAIN IN LIMB [M79.609] 04/01/2005 CARPAL TUNNEL SYNDROME [G56.00] 12/11/2006 CERVICALGIA [M54.2] 02/12/2007 JOINT PAIN-SHLDER [M25.519] 02/12/2007 HIDRADENITIS [L73.2] 11/09/2007 Unspecified Peripheral Vascular Disease [I73.9] 05/15/2009 Exostosis of unspecified site [M89.8X9] 07/02/2011 Hallux valgus (acquired) [M20.10] 07/02/2011 Folliculitis [L73.9] 09/08/2013 Tobacco use disorder [F17.200] Right wrist fracture [S62.101A] 05/11/2014 Nontoxic uninodular goiter [E04.1] 05/28/2014 PVD (peripheral vascular disease) ([facility]) [I73.9] 04/26/2015 Chronic bronchitis (HCC) [J42] 04/26/2015 Bipolar disorder (HCC) [F31.9] 04/26/2015 Gastroesophageal reflux disease [K21.9] 05/16/2015 5 Centrilobular emphysema (HCC) [J43.2] 06/08/2015 Hyperlipidemia [E78.5] 09/24/2016 Gastroesophageal reflux disease without esophag*09/24/2016 Encounter Status:Closed by LEIGHANN ROSE [facility] Normal 11-30-2019 [facility] MATILDE DAMON ([id number]) 1965 [facility] Date Time Provider Department ([id number]) 11/30/19 JOSEPH HERNÁNDEZ ([facility] During your visit today, we recorded the following informati on about you: Joseph Hernández APRN.EARLENE 11/30/2019 7:31 AM Signed Please inform patient that her Hgb A1c i s elevated, in the pre-diabetic range. Very close to diabetes. Patient needs to increase exercise , improve diet by stopping any intake of sugar containing beverages, limiting excessive carbohydrate intake. We can consider starting metformi n daily to deter onset of diabetes if she wants to pursue. Please let me know. Last ly, magnesium level was normal. Joseph Hernández APRN.EARLENE Bowen MA, EDIE 11/30/2019 8:29 AM Signed Unable to reach patient . Left Vm to return call to office. Please read below and advise. EDIE Shah Ma 12/01/2019 8:06 AM Signed Letter mailed to pt home of results. Shanna Jeter MA Allergies As of Date: 11/30/2019 (No Known Allergies) Date Reviewed: 11/29/2019 Reviewed by: Ramonita Acosta LPN - Fully Assessed Reason for Visit: Results [95] Prescriptions as of 11/30/2019 Sig: SPIRIVA RESPIMAT 2.5 MCG/ACTU* Inhale 2 Puffs as instructed * ASPIRIN 81 MG TABLET,DELAYED * Take 1 tablet by mouth once d * ATORVASTATIN 20 MG TABLET Take 1 tablet by mouth once d* ALBUTEROL SULFATE HFA 90 MCG/* Inhale 1 Puff as instructed e * OMEPRAZOLE 20 MG CAPSULE,VENECIA* Take 1 capsule by mouth once * BUSPIRONE 10 MG TABLET Take 1 tablet by mouth twice * * EFFEXOR XR 150 MG CAPSULE,EXT* Take one(1) tablet daily. Problem List As Of Date 11/30/2019 Noted Resolved LUMBAGO [M54.5] 10/28/2004 COMPLIC SURGICAL CODER ORTHO DEVICE [T84.89XA] 04/01/2005 PAIN IN LIMB [M79.609] 04/01/2005 CARPAL TUNNEL SYNDROME [G56.00] 12/11/2006 CERVICALGIA [M54.2] 02/12/2007 JOINT PAIN-SHLDER [M25.519] 02/12/2007 HIDRADENITIS [L73.2] 11/09/2007 Unspecified Peripheral Vascular Disease [I73.9] 05/15/2009 Exostosis of unspecified site [M89.8X9] 07/02/2011 Hallux valgus (acquired) [M20.10] 07/02/2011 Folliculitis [L73.9] 09/08/2013 Tobacco use disorder [F17.200] Right wrist fracture [S62.101A] 05/11/2014 Nontoxic uninodular goiter [E04.1] 05/28/2014 PVD (peripheral vascular disease) (HCC) [I73.9] 04/26/2015 Chronic bronchitis (HCC) [J42] 04/26/2015 Bipolar disorder (HCC) [F31.9] 04/26/2015 Gastroesophageal reflux disease [K21.9] 05/16/2015 5 Centrilobular emphysema (HCC) [J43.2] 06/08/2015 Hyperlipidemia [E78.5] 09/24/2016 Gastroesophageal reflux disease without esophag*09/24/2016 Letter Text Encounter Status:Closed by SHANNA JETER MA on 12/01/19 progress on 2019-11 PROGRESS HNO ID: [id number] Normal 11-29-2019 [facility] Author: Jo Mcgee) Kareemrakel Wang ([id number]) Service: ? Author Type: Nurse Practitioner Type: Progress Notes Filed: 11/29/2019 5:00 PM Note Text: This is a 54 year old female who presents today with: Patient presents with: Follow Up: labs HISTORY OF PRESENT ILLNESS: Matilde Damon is a 54 year old female. Patient presents wit h: Follow Up: labs Pt presents today to follow-up on labs. HYPERLIPIDEMIA: Patient is taking medications: Yes. Patient is watching diet: No. Patient denies myalgias: Yes. Patient denies gi upset: Yes Emphysema Rescue inhaler less than weekly. GERD Refers that controlled with omeprazole. Refers that if she tries to stop, gets heartburn and indiges tion. Tobacco use. Smokes 1 ppd. Not ready to give up. Mood Follows at the counseling center. Stable with current medications. REVIEW OF SYSTEMS NECK: Negative for lumps, goiter, pain and significant neck swelling RESPIRATORY: Negative for cough, hemoptysis, wheezing, dyspn ea or shortness of breath CARDIOVASCULAR: Negative for chest pain, leg swelling, ortho pnea, or palpitations GI: No nausea, vomiting, or diarrhea/constipation. No hemato chezia/melena. Up to date with colonoscopy. NEURO: No history of headaches, syncope, paralysis, seizures or tremors PAST MEDICAL HISTORY: PAST MEDICAL HISTORY Diagnosis Date - Carpal tunnel syndrome - Depression - Elevated blood pressure reading without diagnosis of hyper tension - Generalized anxiety disorder - GERD (gastroesophageal [...] OF right 5th digit arthroplasty, foot - PAST SURGICAL HISTORY OF 04/2018 LEFT wrist surgery - REMOVAL GALLBLADDER 1994 open cholecystectomy ALLERGIES Patient has no known allergies. MEDICATIONS Current Outpatient Medications Medication Sig - atorvastatin (LIPITOR) 20 mg tablet Take 1 tablet by mouth once daily. - albuterol HFA (PROVENTIL HFA, VENTOLIN HFA) 90 mcg/actuati on inhaler Inhale 1 Puff as instructed every 4 hours as needed for Whee zing/Shortness of Breath. - omeprazole (PRILOSEC) 20 mg capsule Take 1 capsule by mout h once daily. - umeclidinium (INCRUSE ELLIPTA) 62.5 mcg/actuation inhaler INHALE 1 PUFF INSTRUCTED ONCE DAILY. - busPIRone (BUSPAR) 10 mg tablet Take 1 tablet by mouth twi ce daily. - venlafaxine hcl(EFFEXOR XR 150 MG 24 HR CAP) Take one(1) t ablet daily. - mupirocin (BACTROBAN) 2 % ointment Apply 1 application to affected area three times daily. Location: nose (Patient not taking: Repor tamia on 11/29/2019 ) No current facility-administered medications for this visit. FAMILY HISTORY Problem Relation Age of Onset - Diabetes Mother - Hypertension Mother - Hypertension Father - Heart Failure Father - Hyperlipidemia Father - Cancer Maternal Aunt Uterine - Diabetes Paternal Aunt - Diabetes Paternal Uncle - Colon Cancer Maternal Grandmother in 70s Social History Tobacco Use - Smoking status: Current Every Day Smoker Packs/day: 1.00 Years: 30.00 Pack years: 30.00 Types: Cigarettes - Smokeless tobacco: Never Used - Tobacco comment: Father smoked in childhood home. Has live d with smokers as an adult. Substance Use Topics - Alcohol use: Yes Comment: Rarely - Drug use: No EXAM: BP 130/90 Pulse 80 Temp (!) 35.8 ?C (96.5 ?F) (Tympanic) Resp 16 Wt 106.1 kg (234 lb) LMP (LMP Unknown) BMI 36.73 kg/m? PHYSICAL EXAM: General Appearance: Well appearing, alert, in no acute distr ess, well-hydrated, well nourished.. Skin: Skin color, texture, turgor normal, no suspicious rash es or lesions. Head: Normocephalic, no masses, lesions, tenderness or abnor malities. Neck: Supple, no adenopathy; thyroid symmetric, normal size, no bruits. Lungs: Lungs clear to auscultation. No wheezing, rhonchi, ra les.. Heart: RRR without murmur, gallop, or rubs. No ectopy. Extremities: No deformities, edema, skin discoloration, club radha or cyanosis. Good capillary refill. . Neurologic: Gait normal. ASSESSMENT/PLAN: 1. Mixed hyperlipidemia - ICD9: 272.2, ICD10: E78.2 (primary diagnosis) - improved control - Continue current medication. 2. Gastroesophageal reflux disease without esophagitis - ICD 9: 530.81, ICD10: K21.9 - Continue treatment with Prilosec 20 mg daily - MAGNESIUM BLD 3. Elevated glucose - ICD9: 790.29, ICD10: R73.09 Get the A1C today. 4. Bipolar affective disorder, remission status unspecified (HCC) - ICD9: 296.80, ICD10: F31.9 Stable. Continue per counseling center. 5. Tobacco use disorder - ICD9: 305.1, ICD10: F17.200 - Cessation encouraged. Not ready to quit. 6. Chronic obstructive pulmonary disease, unspecified COPD t ype (HCC) - ICD9: 496, ICD10: J44.9 Controlled. Discussed treatment plan and patient voices understanding. Patient's questions answered appropriately. Medications and potential side effects were discussed and mariela neumann voices understanding. Jo Gordon APRN.LEAD OXIDE MILL TENDER magnesium on 11-28 Magnesium [Mass/Vol] 2.0 1.7-2.3 mg/dL Normal 0 [facility] ([id number]) Comment: Performed By: #### MG1, HBA1 C ####[facility] [place], [place] [phone] hemoglobin a1c on HbA1c (Bld) [Mass fraction] 134 mg/dL Normal [facility] ([id number]) Comment: Result Comment: eAG: (Estima tamia average glucose) is a calculated value from HgbA1c and is eligibility services representative of the average blood glucose level in the last 2-3 month period. Performed By: #### MG1, HBA1 C ####[facility] [address] [place], [place] [phone] HbA1c (Bld) [Mass fraction] 6.3 4.3-5.6 % High [facility] ([id number]) Comment: Result Comment: [place] [employer] bet[employer] guidelines indicate that patients with HgbA1c in the range 5.7-6.4% are at increased risk for development of diabetes, and intervention by lifestyle modification may be beneficial. HgbA1c greater o r equal to 6.5% is considered diagnostic of diabetes. Performed By: #### MG1, HBA1 C ####[facility] [address] [place], [place] [phone] cnov on 2019-11-29 [facility] Office Visit (FAMPWS) Normal 11-29-[address] [place] [address] [facility] MATILDE DAMON ([id number]) 1965 [facility] Date Time Provider Department ([id number]) 11/29/19 3:20 PM JO GORDON ([facility]) FAMPWS During your visit today, we recorded the following informati on about you: Temperature Pulse Respiration Blood pressure 96.5 degrees 80/minute 16/minute 130/90 Weight 106.1 kg Jo Gordon APRN.CNP 11/29/2019 5:00 PM Signed This is a 54 year old female who presents today with: Patient presents with: Follow Up: labs HISTORY OF PRESENT ILLNESS: Matilde Damon is a 54 year old female. Patient presents wit h: Follow Up: labs Pt presents today to follow-up on labs. HYPERLIPIDEMIA: Patient is taking medications: Yes. Patient is watching diet: No. Patient denies myalgias: Yes. Patient denies gi upset: Yes Emphysema Rescue inhaler less than weekly. GERD Refers that controlled with omeprazole. Refers that if she tries to stop, gets heartburn and indiges tion. Tobacco use. Smokes 1 ppd. Not ready to give up. Mood Follows at the counseling center. Stable with current medications. REVIEW OF SYSTEMS NECK: Negative for lumps, goiter, pain and significant neck swelling RESPIRATORY: Negative for cough, hemopty sis, wheezing, dyspnea or shortness of breath CARDIOVASCULAR: Negative for chest pain, leg swelling, ortho pnea, or palpitations GI: No nausea, vomiting, or diarrhea/constipatio n. No hematochezia/melena. Up to date with colonoscopy. NEURO: No history of headaches, syncope, paralysis, seizures or tremors PAST MEDICAL HISTORY: PAST MEDICAL HISTORY Diagnosis Date - Carpal tunnel syndrome - Depression - Elevated blood pressure reading without diagnosis of hyper tension - Generalized anxiety disorder - GERD (gastroesophageal [...] 1987, 1992 - COLONOSCOP W/ OR W/O [facility] SPEC 09/30/2016 normal - 10 year followup - CORRECT BUNION,SIMPLE Bunion X-2 - EGD W/O OR W/BRUSH/WASH 05/16/15 EGD - LIGATE FALLOPIAN TUBE 08/16/03 Tubal ligation - OPEN RX NAVICULAR FX 05/12/2014 ORIF right wrist - PAST SURGICAL HISTORY OF right 5th digit arthroplasty, foot - PAST SURGICAL HISTORY OF 04/2018 LEFT wrist surgery - REMOVAL GALLBLADDER 1993 open cholecystectomy ALLERGIES Patient has no known allergies. MEDICATIONS Current Outpatient Medications Medication Sig - atorvastatin (LIPITOR) 20 mg tablet Take 1 tablet by mouth once daily. - albuterol HFA (PROVENTIL H FA, VENTOLIN HFA) 90 mcg/actuation inhaler Inhale 1 Puff as instructed every 4 hours as needed for Wheezin g/Shortness of Breath. - omeprazole (PRILOSEC) 20 mg capsule Take 1 capsule by mout h once daily. - umeclidinium (INCRUSE ELLIPTA) 62.5 mcg/actuation in haler INHALE 1 PUFF INSTRUCTED ONCE DAILY. - busPIRone (BUSPAR) 10 mg tablet Take 1 tablet by mouth twi ce daily. - venlafaxine hcl(EFFEXOR XR 150 MG 24 HR CAP) Take one(1) t ablet daily. - mupirocin (BACTROBAN) 2 % ointment Apply 1 application to affected area three times daily. Location: nose (Patient not taking: Reported on 11/29/2019 ) No current facility-administered medications for this visit. FAMILY HISTORY Problem Relation Age of Onset - Diabetes Mother - Hypertension Mother - Hypertension Father - Heart Failure Father - Hyperlipidemia Father - Cancer Maternal Aunt Uterine - Diabetes Paternal Aunt - Diabetes Paternal Uncle - Colon Cancer Maternal Grandmother in 70s Social History Tobacco Use - Smoking status: Current Every Day Smoker Packs/day: 1.00 Years: 30.00 Pack years: 30.00 Types: Cigarettes - Smokeless tobacco: Never Used - Tobacco comment: Father smoked in childhood ho me. Has lived with smokers as an adult. Substance Use Topics - Alcohol use: Yes Comment: Rarely - Drug use: No EXAM: BP 130/90 Pulse 80 Temp (!) 35.8 ?C (96.5 ?F) (Tympani c) Resp 16 Wt 106.1 kg (234 lb) LMP (LMP Unknown) BMI 36.73 kg/m? PHYSICAL EXAM: General Appearance: Well montez earing, alert, in no acute distress, well-hydrated, well nourished.. Skin: Skin color, texture, turgor normal, no suspicious rash es or lesions. Head: Normocephalic, no masses, lesions, tenderness or abnor malities. Neck: Supple, no adenopathy; thyroid symmetric, normal size, no bruits. Lungs: Lungs clear to auscultation. No wheezing, rhonchi, ra les.. Heart: RRR without murmur, gallop, or rubs. No ectopy. Extremities: No deformities, edema, skin discolo ration, clubbing or cyanosis. Good capillary refill. . Neurologic: Gait normal. ASSESSMENT/PLAN: 1. Mixed hyperlipidemia - ICD9: 272.2, ICD10: E78.2 (primary diagnosis) - improved control - Continue current medication. 2. Gastroesophageal reflux disease without esoph agitis - ICD9: 530.81, ICD10: K21.9 - Continue treatment with Prilosec 20 mg daily - MAGNESIUM BLD 3. Elevated glucose - ICD9: 790.29, ICD10: R73.09 Get the A1C today. 4. Bipolar affective disorder, remission status unspecified (HCC) - ICD9: 296.80, ICD10: F31.9 Stable. Continue per counseling center. 5. Tobacco use disorder - ICD9: 305.1, ICD10: F17.200 - Cessation encouraged. Not ready to quit. 6. Chronic obstructive pulmonary disease, unspec ified COPD type (HCC) - ICD9: 496, ICD10: J44.9 Controlled. Discussed treatment plan and patient voices understanding. Patient's questions answered appropriately. Medications and potential side effects were discussed and mariela neumann voices understanding. Jo Gordon APRN.EARLENE Gordon APRN.EARLENE 11/29/2019 3:58 PM Signed 1. Get labs drawn. 2. Continue the cholesterol medication. 3. Recheck in 6 months. Referring Provider: SELF [200] Allergies As of Date: 11/29/2019 (No Known Allergies) Date Reviewed: 11/29/2019 Reviewed by: Ramonita Acosta LPN - Fully Assessed Reason for Visit: Follow Up [171] Cmt: labs Primary Visit Diagnosis:Mixed hyperlipidemia [E78.2] Other Visit Diagnoses:Gastroesophageal reflux disease withou t esophagitis [K21.9] Elevated glucose [R73.09] Bipolar affective disorder, remission status unspecified (HCC) [F31.9] Tobacco use disorder [F17.200] Chronic obstructive pulmonary disease, unspecified COPD type (HCC) [J44.9] Order(s):MAGNESIUM BLD [SQMG1] Order #: [id number] FUTURE aspirin, enteric coated (ASPIRIN, ENTERIC COATED) 81 mg EC t abletTake 1 tablet by mouth once daily.Disp: Rfl: Prescriptions as of 11/29/2019 Sig: ATORVASTATIN 20 MG TABLET Take 1 tablet by mouth once d* ALBUTEROL SULFATE HFA 90 MCG/* Inhale 1 Puff as instructed e * OMEPRAZOLE 20 MG CAPSULE,VENECIA* Take 1 capsule by mouth once * UMECLIDINIUM 62.5 MCG/ACTUATI* INHALE 1 PUFF INSTRUCTED O * BUSPIRONE 10 MG TABLET Take 1 tablet by mouth twice * * EFFEXOR XR 150 MG CAPSULE,EXT* Take one(1) tablet daily. ASPIRIN 81 MG TABLET,DELAYED * Take 1 tablet by mouth once d * Problem List As Of Date 11/29/2019 Noted Resolved LUMBAGO [M54.5] 10/28/2004 COMPLIC SURGICAL CODER ORTHO DEVICE [T84.89XA] 04/01/2005 PAIN IN LIMB [M79.609] 04/01/2005 CARPAL TUNNEL SYNDROME [G56.00] 12/11/2006 CERVICALGIA [M54.2] 02/12/2007 JOINT PAIN-SHLDER [M25.519] 02/12/2007 HIDRADENITIS [L73.2] 11/09/2007 Unspecified Peripheral Vascular Disease [I73.9] 05/15/2009 Exostosis of unspecified site [M89.8X9] 07/02/2011 Hallux valgus (acquired) [M20.10] 07/02/2011 Folliculitis [L73.9] 09/08/2013 Tobacco use disorder [F17.200] Right wrist fracture [S62.101A] 05/11/2014 Nontoxic uninodular goiter [E04.1] 05/28/2014 PVD (peripheral vascular disease) (HCC) [I73.9] 04/26/2015 Chronic bronchitis (HCC) [J42] 04/26/2015 Bipolar disorder (HCC) [F31.9] 04/26/2015 Gastroesophageal reflux disease [K21.9] 05/16/2015 5 Centrilobular emphysema (HCC) [J43.2] 06/08/2015 Hyperlipidemia [E78.5] 09/24/2016 Gastroesophageal reflux disease without esophag*09/24/2016 Other instructions from your clinician: 1. Get labs drawn. 2. Continue the cholesterol medication. 3. Recheck in 6 months. Prescriptions ordered this encounter Disp Refills Start End ASPIRIN 81 MG TABLET,DELAYED RELEASE 11/29/2019 Class: OTC Route: ORAL Sig: Take 1 tablet by mouth once daily. Medications Discontinued During This Encounter mupirocin (BACTROBAN) 2 % ointment 15 g 0 02/12/2018 11/29/2019 Route: TOPICAL Sig: Apply 1 application to affected area three times primitivo y. Location: nose Patient not taking: Reported on 11/29/2019 Disc: Other Encounter Status:Closed by JO GORDON CNP on 11/29/19 cnpn [facility] Normal 11-24-2019 [facility] MATILDE DAMON ([id number]) 1965 [facility] Date Time Provider Department ([id number]) 11/24/19 JOAQUÍN ISRAEL During your visit today, we recorded the following informati on about you: Jim Acosta LPN 11/24/2019 8:50 AM Signed Natividad from [facility] calling to request eit her PA for Incruse inhaler or preferred rx which is Spiriva. Natividad did not have ref #, but phone # to call is [phone]. Please advise. Jim Tate LPN 11/29/2019 10:48 AM Signed Please advise regarding ratliff ge to preferred inhaler (Spiriva) or why pt can not use so we can start a PA if needed. ANAHI Lunsford MD 11/30/2019 7:33 PM Signed OK for spiriva as ordered MD Ashlee Melton MA 11/30/2019 7:40 PM Signed The following approved medic ation requests have been transmitted electronically. Signed Prescriptions Disp Refills tiotropium (SPIRIVA RESPIMAT) 2.5 mcg/actuation inhaler 1 In haler 5 Sig: Inhale 2 Puffs as instructed once daily. Inhale two puf fs once daily. Authorizing Provider: JOAQUÍN ISRAEL MA Allergies As of Date: 11/24/2019 (No Known Allergies) Date Reviewed: 05/13/2019 Reviewed by: Morenita Del Castillo Ma - Fully Assessed Reason for Visit: Insurance Authorization [[id number]] Cmt: Incruse Order(s):tiotropium (SPIRIVA RESPIMAT) 2 .5 mcg/actuation inhalerInhale 2 Puffs as instructed once daily. Inhale two puffs once daily.Disp: 1 InhalerRfl: 5 Prescriptions as of 11/24/2019 Sig: SPIRIVA RESPIMAT 2.5 MCG/ACTU* Inhale 2 Puffs as instructed * ATORVASTATIN 20 MG TABLET Take 1 tablet by mouth once d* ALBUTEROL SULFATE HFA 90 MCG/* Inhale 1 Puff as instructed e * OMEPRAZOLE 20 MG CAPSULE,VENECIA* Take 1 capsule by mouth once * BUSPIRONE 10 MG TABLET Take 1 tablet by mouth twice * X MUPIROCIN 2 % TOPICAL OINTMENT Apply [address]* Patient not taking: Reported on 11/29/2019 * EFFEXOR XR 150 MG CAPSULE,EXT* Take one(1) tablet daily. Problem List As Of Date 11/24/2019 Noted Resolved LUMBAGO [M54.5] 10/28/2004 COMPLIC SURGICAL CODER ORTHO DEVICE [T84.89XA] 04/01/2005 PAIN IN LIMB [M79.609] 04/01/2005 CARPAL TUNNEL SYNDROME [G56.00] 12/11/2006 CERVICALGIA [M54.2] 02/12/2007 JOINT PAIN-SHLDER [M25.519] 02/12/2007 HIDRADENITIS [L73.2] 11/09/2007 Unspecified Peripheral Vascular Disease [I73.9] 05/15/2009 Exostosis of unspecified site [M89.8X9] 07/02/2011 Hallux valgus (acquired) [M20.10] 07/02/2011 Folliculitis [L73.9] 09/08/2013 Tobacco use disorder [F17.200] Right wrist fracture [S62.101A] 05/11/2014 Nontoxic uninodular goiter [E04.1] 05/28/2014 PVD (peripheral vascular disease) ([facility]) [I73.9] 04/26/2015 Chronic bronchitis (HCC) [J42] 04/26/2015 Bipolar disorder (HCC) [F31.9] 04/26/2015 Gastroesophageal reflux disease [K21.9] 05/16/2015 5 Centrilobular emphysema (HCC) [J43.2] 06/08/2015 Hyperlipidemia [E78.5] 09/24/2016 Gastroesophageal reflux disease without esophag*09/24/2016 Prescriptions ordered this encounter Disp Refills Start End SPIRIVA RESPIMAT 2.5 MCG/ACTUATION S* 1 In* 5 11/30/2019 Route: INHALATION Sig: Inhale 2 Puffs as instructed once daily. Inhale two puf fs once daily. Medications Discontinued During This Encounter umeclidinium (INCRUSE ELLIPTA) 62.5 * 1 Ea* 11 02/07/201911/29 Sig: INHALE 1 PUFF INSTRUCTED ONCE DAILY. Disc: Reason for discontinue is not on file. Encounter Status:Closed by ASHLEE JAIME MA on 11/30/19 earlenen on 2019-11-10 [facility] Normal 11-10-2019 [facility] MATILDE DAMON ([id number]) 1965 [facility] Date Time Provider Department ([id number]) 11/10/19 JOSEPH HERNÁNDEZ ([facility]) FAMWS During your visit today, we recorded the following informati on about you: Joseph Hernández APRN.EARLENE 11/10/2019 7:36 AM Signed Please inform patient that cholesterol looks oka y. Triglycerides are a little on the higher side, likely from some saturated f at intake with cheese, meats, etc. Kidney function, electrolytes are normal. G lucose is elevated but not in diabetic range. Add on Hgb A1c to see di abetes status. Continue with scheduled appointment. Joseph Hernández APRN.EARLENE Jeter Ma 11/10/2019 8:58 AM Signed Lab unable to add the A1c order. Do you want pt to come back in for this? Shanna Hernández APRN.EARLENE 11/10/2019 9:06 AM Signed She can get done when she comes into appointment, no need fo r extra trip. Joseph Hernández APRN.EARLENE Bowen MA, MA 11/10/2019 9:48 AM Signed Unable to reach patient . Left Vm to return call to office. Please read below and advise. EDIE Shah Ma 11/11/2019 2:00 PM Signed Letter mailed to pt home of results. Shanna Jeter MA Allergies As of Date: 11/10/2019 (No Known Allergies) Date Reviewed: 05/13/2019 Reviewed by: Morenita Del Castillo Ma - Fully Assessed Reason for Visit: Recheck [92] Primary Visit Diagnosis:Elevated glucose [R73.09] Order(s):HGB A1C [KMQUB4B] Order #: [id number] FUTURE Prescriptions as of 11/10/2019 Sig: ATORVASTATIN 20 MG TABLET Take 1 tablet by mouth once d* ALBUTEROL SULFATE HFA 90 MCG/* Inhale 1 Puff as instructed e * OMEPRAZOLE 20 MG CAPSULE,VENECIA* Take 1 capsule by mouth once * UMECLIDINIUM 62.5 MCG/ACTUATI* INHALE 1 PUFF INSTRUCTED O * BUSPIRONE 10 MG TABLET Take 1 tablet by mouth twice * MUPIROCIN 2 % TOPICAL OINTMENT Apply 1 application to affect * * EFFEXOR XR 150 MG CAPSULE,EXT* Take one(1) tablet daily. Problem List As Of Date 11/10/2019 Noted Resolved LUMBAGO [M54.5] 10/28/2004 COMPLIC SURGICAL CODER ORTHO DEVICE [T84.89XA] 04/01/2005 PAIN IN LIMB [M79.609] 04/01/2005 CARPAL TUNNEL SYNDROME [G56.00] 12/11/2006 CERVICALGIA [M54.2] 02/12/2007 JOINT PAIN-SHLDER [M25.519] 02/12/2007 HIDRADENITIS [L73.2] 11/09/2007 Unspecified Peripheral Vascular Disease [I73.9] 05/15/2009 Exostosis of unspecified site [M89.8X9] 07/02/2011 Hallux valgus (acquired) [M20.10] 07/02/2011 Folliculitis [L73.9] 09/08/2013 Tobacco use disorder [F17.200] Right wrist fracture [S62.101A] 05/11/2014 Nontoxic uninodular goiter [E04.1] 05/28/2014 PVD (peripheral vascular disease) (HCC) [I73.9] 04/26/2015 Chronic bronchitis (HCC) [J42] 04/26/2015 Bipolar disorder (HCC) [F31.9] 04/26/2015 Gastroesophageal reflux disease [K21.9] 05/16/2015 5 Centrilobular emphysema (HCC) [J43.2] 06/08/2015 Hyperlipidemia [E78.5] 09/24/2016 Gastroesophageal reflux disease without esophag*09/24/2016 Letter Text Encounter Status:Closed by SAHNNA JETER MA on 11/11/19 lipid panel, basic on 2019-11-09 Cholesterol [Mass/Vol] 136 <200 mg/dL Normal 020 [facility] ([id number]) Comment: Result Comment: <200 mg/dL, Desirable 200-239 mg/dL, Borderline hi gh >239 mg/dL, High Performed By: #### CMP, LIPB ####[facility] [place], [place] [phone]- [phone] Cholesterol in HDL [Mass/Vol] 28 >39 mg/dL Low 11-09-2019 [facility] (25753) Comment: Result Comment: 40-59 mg/dL, Acceptable >59 mg/dL, High: Negative ri sk factor for coronary heart disease <40 mg/dL, Low: Positive ris k factor for coronary heart disease Performed By: #### CMP, LIPB ####[facility] [address] [place], [place] [phone]- [phone] Cholesterol in LDL 65 <100 mg/dL Normal 11-09-2019 [facility] [Mass/Vol] [place] (80759) Comment: Result Comment: <100 mg/dL, Optimal 100-129 mg/dL, Near optimal/ above optimal 130-159 mg/dL, Borderline hi gh 160-189 mg/dL, High >189 mg/dL, Very high Secondary prevention optimal LDL Cholesterol levels are recommended to be < 70 mg/dL Performed By: #### CMP, LIPB ####[facility] [place], [place] [phone]- [phone] Fasting Time 9 hrs Normal 11-09-2019 [facility] (06894) Comment: Performed By: #### CMP, LIPB ####[place] [address] [place], [place] [phone]- [phone] LDL:HDL Ratio 2.32 <2.54 Normal 11-09-2019 [facility] (42938) Comment: Result Comment: Reference: 1. National Cholesterol Educ ation Program ATP III Guideline At-A-Glance Quick Desk Reference: National Heart, Lung, and Blood [place]. National Institutes of Health. 2001: NIH Publication No. 01-3305. 2. An International Atherosc lerosis Society position paper: global recommendations for the management of dyslipidemia: executive summary, Atherosclerosis. 2014: 232(2):410-413. Performed By: #### CMP, LIPB ####[place] [address] [place], [place] [phone] Non HDL Cholesterol 108 <130 mg/dL Normal 11-09-2019 [facility] (62144) Comment: Result Comment: <130 mg/dL, Optimal 130-159 mg/dL, Near optimal/ above optimal 160-189 mg/dL, Borderline hi gh 190-219 mg/dL, High >219 mg/dL, Very high Secondary prevention optimal non HDL Cholesterol levels are recommended to be < 100 mg/dL Performed By: #### CMP, LIPB ####[place] [address], [place] [phone] TC:HDL Ratio 4.86 <5.10 Normal 11-09-2019 [facility] (49725) Comment: Performed By: #### CMP, LIPB ####[place] [address] [address], [place] [phone]- [phone] Triglyceride [Mass/Vol] 214 <150 mg/dL High 2019 [facility] (16463) Comment: Result Comment: <150 mg/dL, Normal 150-199 mg/dL, Borderline hi gh 200-499 mg/dL, High >499 mg/dL, Very high Performed By: #### CMP, LIPB ####[address] [place], [place] [phone] VLDL Cholesterol 43 <30 mg/dL High 11-09-2019 [place] (29347) Comment: Performed By: #### CMP, LIPB ####[address] [phone] comp metabolic panel on 2019-11-09 Albumin [Mass/Vol] 4.3 3.9-4.9 g/dL Normal 11-09-2019 [facility] (59139) Comment: Performed By: #### CMP, LIPB ####[address] [place], [place] [phone]- [phone] ALP [Catalytic activity/Vol] 79 34-123 U/L Normal 0 11-09-2019 [facility] (04123) Comment: Performed By: #### CMP, LIPB ####[address] [place], [place] [phone]- [phone] ALT [Catalytic activity/Vol] 18 7-38 U/L Normal 0 11-09-2019 [facility] (09251) Comment: Performed By: #### CMP, LIPB ####[place] [address] [place], [place] [phone] Anion gap [Moles/Vol] 11 9-18 mmol/L Normal 11-09-19 [facility] (38723) Comment: Performed By: #### CMP, LIPB ####[place] [address] [place], [place] [phone] AST [Catalytic activity/Vol] 20 13-35 U/L Normal 0 11-09-2019 [facility] (46778) Comment: Performed By: #### CMP, LIPB ####[facility], [place] [phone]- [phone] Bilirubin [Mass/Vol] 0.2 0.2-1.3 mg/dL Normal 0 [facility] (71969) Comment: Performed By: #### CMP, LIPB ####[place] [address], [place] [phone]- [phone] Calcium [Mass/Vol] 8.9 8.5-10.2 mg/dL Normal 11-09-2019 [facility] (52786) Comment: Performed By: #### CMP, LIPB ####[place] [address], [place] [phone]- [phone] Chloride [Moles/Vol] 102 97-105 mmol/L Normal 0 [facility] (68693) Comment: Performed By: #### CMP, LIPB ####[place] [address], [place] [phone]- [phone] CO2 [Moles/Vol] 26 22-30 mmol/L Normal 11-09-2019 [facility] (60950) Comment: Performed By: #### CMP, LIPB ####[facility], [place] [phone]- [phone] Creatinine [Mass/Vol] 0.83 0.58-0.96 mg/dL Normal 11-09-19 20 [facility] (25393) Comment: Performed By: #### CMP, LIPB ####[facility] [place], [place] [phone]- [phone] eGFR- Amer. >60 Normal 11-09-2019 [facility] (79974) Comment: Performed By: #### CMP, LIPB ####[place] [address], [place] [phone]- [phone] GFR/1.73 sq M predicted >60 mL/min/{1.73_m2} Normal 11-09-2019 [facility] among non-blacks MDRD [place] (04881) (S/P/Bld) [Vol rate/Area] Comment: Result Comment: eGFR (Estima tamia GFR) Units of measure: mL/min/1.73 meters squared eGFR is derived from the ree xpressed MDRD Study equation using the following parameters: serum creatinine, age, gender and race. The creatinine assay has been calibrated to be traceable to IDMS. An eGFR <60 mL/min/1.73m2 fo r >3 months is consistent with chronic kidney disease. Refer to KDOQI guidelines for clinical interpretation. In patients with unstable re nal function, e.g. those with acute kidney injury, the eGFR may not accurately reflect actual GFR. Performed By: #### CMP LIPB ####[facility] [address] [place], [place] [phone]- [phone] Glucose [Mass/Vol] 113 74-99 mg/dL High 11-09-2019 [facility] (22783) Comment: Result Comment: The [place] Diabetes Association (ADA) provides guidance for cutoff values for fasting glucose and random glucose. The ADA defines fasting as no caloric intake for at least 8 hours. Fas ting plasma glucose results between 100 to 125 mg/dL indicate increased risk for diabetes (prediabetes). Fasting plasma glucose resul ts greater than or equal to 126 mg/dL meet the criteria for diagnosis of diabetes. In the absence of unequivocal hyperglycemia, results should be confirmed by repeat testing. In a patient with classic s ymptoms of hyperglycemia or hyperglycemic crisis, random plasma glucose results greater than or equal to 200 mg/dL meet the criteria for diagnosis of diabetes. Reference: Standards of [facility] Care in Diabetes 2016, [place] Diabetes Association. Diabetes Care. 2016.39(Suppl 1). Performed By: #### CMP, LIPB ####[facility] [address] [place], [place] [phone]- [phone] Potassium [Moles/Vol] 4.2 3.7-5.1 mmol/L Normal 11-09-19 [facility] (64740) Comment: Performed By: #### CMP, LIPB ####[facility] [address] [place], [place] [phone]- [phone] Protein [Mass/Vol] 7.0 6.3-8.0 g/dL Normal 11-09-2019 [facility] (26466) Comment: Performed By: #### CMP, LIPB ####[facility] [place], [place] [phone]- [phone] Sodium [Moles/Vol] 139 136-144 mmol/L Normal 11-09-2019 [facility] (06394) Comment: Performed By: #### CMP, LIPB ####[place] [address] [place], [place] [phone]- [phone] Urea nitrogen [Mass/Vol] 9 7-21 mg/dL Normal 11-08 [facility] (27650) Comment: Performed By: #### CMP, LIPB ####[facility] [place], [place] [phone]- [phone] obsolete on 2019-10 OBSOLETE Refill (FAMPWS) Normal 10-26-2019 [facility] MATILDE DAMON ([id number]) 1965 [facility] Date Time Provider Department ([id number]) 10/26/19 JOAQUÍN ISRAEL FAMPWS During your visit today, we recorded the following informati on about you: Leroy Buchananwinston 10/26/2019 4:51 PM Signed Patient has been identified by name and date of : Yes Pharmacy phones for refill(s): Pending Prescriptions Disp Refills ATORVASTATIN 20 MG TABLET 30 tablet 3 Sig: Take 1 tablet by mouth once daily. MELANI: No Date of last office visit in primary care: 05/13/19 Last rx 05/13/19 #30 w/3 refills Last 2 Encounter Wt Readings: Date: Wt: 05/13/2019 107 kg (236 lb) 04/23/2019 107 kg (236 lb) Previous labs/tests for medication: Cholesterol: HDL Cholesterol (mg/dL) Date Value 02/04/2019 25 LDL Cholesterol (mg/dL) Date Value 02/04/2019 156 ALT (U/L) Date Value 02/04/2019 24 Non HDL Cholesterol (mg/dL) Date Value 02/04/2019 203 Please advise. Thank you. Leroy Buchananwinston Israel MD 10/26/2019 4:53 PM Signed OK to refill as ordered MD Shanna Melton Ma 10/26/2019 4:54 PM Signed The following approved medic ation requests have been transmitted electronically. Signed Prescriptions Disp Refills atorvastatin (LIPITOR) 20 mg tablet 30 tablet 11 Sig: Take 1 tablet by mouth once daily. MELANI: No Authorizing Provider: JOAQUÍN ISRAEL Ma Allergies As of Date: 10/26/2019 (No Known Allergies) Date Reviewed: 05/13/2019 Reviewed by: Morenita Del Castillo Ma - Fully Assessed Reason for Visit: Refill Request [94] Visit Diagnosis:Mixed hyperlipidemia [E78.2] Order(s):atorvastatin (LIPITOR) 20 mg tabletTake 1 tablet by mouth once daily.Disp: 30 tabletRfl: 11 Prescriptions as of 10/26/2019 Sig: ATORVASTATIN 20 MG TABLET Take 1 tablet by mouth once d* ALBUTEROL SULFATE HFA 90 MCG/* Inhale 1 Puff as instructed e * OMEPRAZOLE 20 MG CAPSULE,VENECIA* Take 1 capsule by mouth once * UMECLIDINIUM 62.5 MCG/ACTUATI* INHALE 1 PUFF INSTRUCTED O * BUSPIRONE 10 MG TABLET Take 1 tablet by mouth twice * MUPIROCIN 2 % TOPICAL OINTMENT Apply 1 application to affect * * EFFEXOR XR 150 MG CAPSULE,EXT* Take one(1) tablet daily. Problem List As Of Date 10/26/2019 Noted Resolved LUMBAGO [M54.5] 10/28/2004 COMPLIC SURGICAL CODER ORTHO DEVICE [T84.89XA] 04/01/2005 PAIN IN LIMB [M79.609] 04/01/2005 CARPAL TUNNEL SYNDROME [G56.00] 12/11/2006 CERVICALGIA [M54.2] 02/12/2007 JOINT PAIN-SHLDER [M25.519] 02/12/2007 HIDRADENITIS [L73.2] 11/09/2007 Unspecified Peripheral Vascular Disease [I73.9] 05/15/2009 Exostosis of unspecified site [M89.8X9] 07/02/2011 Hallux valgus (acquired) [M20.10] 07/02/2011 Folliculitis [L73.9] 09/08/2013 Tobacco use disorder [F17.200] Right wrist fracture [S62.101A] 05/11/2014 Nontoxic uninodular goiter [E04.1] 05/28/2014 PVD (peripheral vascular disease) (HCC) [I73.9] 04/26/2015 Chronic bronchitis (HCC) [J42] 04/26/2015 Bipolar disorder (HCC) [F31.9] 04/26/2015 Gastroesophageal reflux disease [K21.9] 05/16/2015 5 Centrilobular emphysema (HCC) [J43.2] 06/08/2015 Hyperlipidemia [E78.5] 09/24/2016 Gastroesophageal reflux disease without esophag*09/24/2016 Prescriptions ordered this encounter Disp Refills Start End ATORVASTATIN 20 MG TABLET 30 t* 11 10/26/2019 Route: ORAL Sig: Take 1 tablet by mouth once daily. Medications Discontinued During This Encounter atorvastatin (LIPITOR) 20 mg tablet 30 t* 3 05/13/2019 020 Route: ORAL Sig: Take 1 tablet by mouth once daily. Disc: Reason for discontinue is not on file. Encounter Status:Closed by SHANNA JETER MA on 10/26/19 earlenen on [facility]10-[facility]) Normal 10-18-2019 [place] MATILDE Nunes ([id number]) 1965 F [place] Date Time Provider Department ([id number]) 10/18/19 JOAQUÍN ISRAEL During your visit today, we recorded the following informati on about you: Marium Arzate Pss 10/18/2019 4:30 PM Signed Patient on wait list and would like sutures removed on forea rm . Morenita Del Castillo Ma 10/18/2019 4:35 PM Signed Sure why patient is on a wait list. We can schedule patient to come in for Suture removal. Morenita Arzate Pss 10/20/2019 4:38 PM Signed Tried to reach patient as Urgent Care is open and can remove small area of sutures, LVM Allergies As of Date: 10/18/2019 (No Known Allergies) Date Reviewed: 05/13/2019 Reviewed by: Morenita Del Castillo Ma - Fully Assessed Reason for Visit: sutures removed on forearm [Other] Prescriptions as of 10/18/2019 Sig: ALBUTEROL SULFATE HFA 90 MCG/* Inhale 1 Puff as instructed e * ATORVASTATIN 20 MG TABLET Take 1 tablet by mouth once d* OMEPRAZOLE 20 MG CAPSULE,VENECIA* Take 1 capsule by mouth once * UMECLIDINIUM 62.5 MCG/ACTUATI* INHALE 1 PUFF INSTRUCTED O * BUSPIRONE 10 MG TABLET Take 1 tablet by mouth twice * MUPIROCIN 2 % TOPICAL OINTMENT Apply 1 application to affect * * EFFEXOR XR 150 MG CAPSULE,EXT* Take one(1) tablet daily. Problem List As Of Date 10/18/2019 Noted Resolved LUMBAGO [M54.5] 10/28/2004 COMPLIC SURGICAL CODER ORTHO DEVICE [T84.89XA] 04/01/2005 PAIN IN LIMB [M79.609] 04/01/2005 CARPAL TUNNEL SYNDROME [G56.00] 12/11/2006 CERVICALGIA [M54.2] 02/12/2007 JOINT PAIN-SHLDER [M25.519] 02/12/2007 HIDRADENITIS [L73.2] 11/09/2007 Unspecified Peripheral Vascular Disease [I73.9] 05/15/2009 Exostosis of unspecified site [M89.8X9] 07/02/2011 Hallux valgus (acquired) [M20.10] 07/02/2011 Folliculitis [L73.9] 09/08/2013 Tobacco use disorder [F17.200] Right wrist fracture [S62.101A] 05/11/2014 Nontoxic uninodular goiter [E04.1] 05/28/2014 PVD (peripheral vascular disease) ([facility]) [I73.9] 04/26/2015 Chronic bronchitis (HCC) [J42] 04/26/2015 Bipolar disorder (HCC) [F31.9] 04/26/2015 Gastroesophageal reflux disease [K21.9] 05/16/2015 5 Centrilobular emphysema (HCC) [J43.2] 06/08/2015 Hyperlipidemia [E78.5] 09/24/2016 Gastroesophageal reflux disease without esophag*09/24/2016 Encounter Status:Closed by SPOTMARIUM WHITNEY on 10/20/19 obsolete on 2019-08 OBSOLETE Refill (FAMPWS) Normal 09-01-2019 [facility] MATILDE DAMON ([id number]) 1965 [facility] Time Provider Department ([id number]) 09/01/19 JOAQUÍN ISRAEL FAMPWS During your visit today, we recorded the following informati on about you: Michael Bui RN 09/01/2019 9:26 AM Signed Patient has been identified by name and date of : Yes Pharmacy phones for refill(s): Pending Prescriptions Disp Refills ALBUTEROL SULFATE HFA 90 MCG/ACTUATION AEROSOL INHALER 1 Inh aler 5 Sig: Inhale 1 Puff as instructed every 4 hours as needed for Wheezing/Shortness of Breath. MELANI: No Date of last office visit with pcp: none Date of last office visit in primary care: 05-09-20. Next ap pt: 11-08-19 Last 2 Encounter Wt Readings: Date: Wt: 05/13/2019 107 kg (236 lb) 04/23/2019 107 kg (236 lb) Previous labs/tests for medication: Blood Counts: WBC (k/uL) Date Value 11/15/2013 7.51 RBC (m/uL) Date Value 11/15/2013 4.67 Hematocrit (%) Date Value 11/15/2013 41.8 Hemoglobin (g/dL) Date Value 11/15/2013 13.6 Platelet Count (k/uL) Date Value 11/15/2013 258 Liver Function: ALT (U/L) Date Value 02/04/2019 24 AST (U/L) Date Value 02/04/2019 22 Please advise. Thank you. Michael Hernández APRN.CNP 09/01/2019 9:32 AM Signed The following approved medic ation requests have been transmitted electronically. Pending Prescriptions Disp Refills ALBUTEROL SULFATE HFA 90 MCG/ACTUATION AEROSOL INHALER 1 Inh aler 5 Sig: Inhale 1 Puff as instructed every 4 hours as needed for Wheezing/Shortness of Breath. MELANI: No Joseph Hernández APRN.[employer]ER Allergies As of Date: 09/01/2019 (No Known Allergies) Date Reviewed: 05/13/2019 Reviewed by: Morenita Del Castillo Ma - Fully Assessed Reason for Visit: Refill Request [94] Visit Diagnosis:Chronic obstructive pulmonary disease, unspecified COPD type (HCC) [J44.9] Order(s):albuterol HFA (PROVENTIL HFA, VENTOLIN HFA) 90 mcg/ actuation inhalerInhale 1 Puff as instructed every 4 hours as needed f or Wheezing/Shortness of Breath.Disp: 1 InhalerRfl: 5 Prescriptions as of 09/01/2019 Sig: ALBUTEROL SULFATE HFA 90 MCG/* Inhale 1 Puff as instructed e * ATORVASTATIN 20 MG TABLET Take 1 tablet by mouth once d* OMEPRAZOLE 20 MG CAPSULE,VENECIA* Take 1 capsule by mouth once * UMECLIDINIUM 62.5 MCG/ACTUATI* INHALE 1 PUFF INSTRUCTED O * BUSPIRONE 10 MG TABLET Take 1 tablet by mouth twice * MUPIROCIN 2 % TOPICAL OINTMENT Apply 1 application to affect * * EFFEXOR XR 150 MG CAPSULE,EXT* Take one(1) tablet daily. Problem List As Of Date 09/01/2019 Noted Resolved LUMBAGO [M54.5] 10/28/2004 COMPLIC SURGICAL CODER ORTHO DEVICE [T84.89XA] 04/01/2005 PAIN IN LIMB [M79.609] 04/01/2005 CARPAL TUNNEL SYNDROME [G56.00] 12/11/2006 CERVICALGIA [M54.2] 02/12/2007 JOINT PAIN-SHLDER [M25.519] 02/12/2007 HIDRADENITIS [L73.2] 11/09/2007 Unspecified Peripheral Vascular Disease [I73.9] 05/15/2009 Exostosis of unspecified site [M89.8X9] 07/02/2011 Hallux valgus (acquired) [M20.10] 07/02/2011 Folliculitis [L73.9] 09/08/2013 Tobacco use disorder [F17.200] Right wrist fracture [S62.101A] 05/11/2014 Nontoxic uninodular goiter [E04.1] 05/28/2014 PVD (peripheral vascular disease) (HCC) [I73.9] 04/26/2015 Chronic bronchitis (HCC) [J42] 04/26/2015 Bipolar disorder (HCC) [F31.9] 04/26/2015 Gastroesophageal reflux disease [K21.9] 05/16/2015 5 Centrilobular emphysema (HCC) [J43.2] 06/08/2015 Hyperlipidemia [E78.5] 09/24/2016 Gastroesophageal reflux disease without esophag*09/24/2016 Prescriptions ordered this encounter Disp Refills Start End ALBUTEROL SULFATE HFA 90 MCG/ACTUATI* 1 In* 5 09/01/2019 Cmt: Generic or brand: dispense inhaler preferre d by patient/insurance unless MELANI flag is selected. Route: INHALATION Sig: Inhale 1 Puff as instructed every 4 hours as needed for Wheezing/Shortness of Breath. Medications Discontinued During This Encounter albuterol HFA (PROVENTIL HFA, VENTOL* 1 In* 5 03/09/201908/31 Cmt: Generic or brand: dispe nse inhaler preferred by patient/insurance unless MELANI flag is selected. Route: INHALATION Sig: Inhale 1 Puff as instru cted every 4 hours as needed for Wheezing/Shortness of Breath. Disc: Reason for discontinue is not on file. Encounter Status:Closed by JOSEPH HERNÁNDEZ CNP on 09/01/19 progress on 2019-04 PROGRESS HNO ID: [id number] Normal 05-13-2019 [facility] Author: Joseph (Earlene) Jareth Wang ([id number]) Service: ? Author Type: Nurse Practitioner Type: Progress Notes Filed: 05/13/2019 1:49 PM Note Text: Chief Complaint Patient presents with: Recheck HPI Matilde Damon is a 54 year old female who presents here tod for Chronic Medical Conditions.. COPD: Using inhalers as prescribed. No side effects. No ratliff ge in wheezing, shortness of breath, fevers or chills. HYPERLIPIDEMIA: Patient is taking medications: Yes. Patient is watching diet: Yes. Patient denies myalgias: Yes. Patient denies gi upset: Yes PVD: Still taking Aspirin 81 mg daily. No leg pain or swelli ng at this time. Following with the counseling center of [facility]. Doing well with Effexor and Buspar. Does mention that she has been having some complaints of dys uria. Present for about 2 weeks. No recent antibiotic use. Has been increa sing fluids and using cranberry juice. Feels like symptoms are improving but still lingering. No fevers or back pain. Past medical history, appointments, medications, allergies r eviewed. Previous Medical History PAST MEDICAL HISTORY Diagnosis Date - Carpal tunnel syndrome - Depression - Elevated blood pressure reading without diagnosis of hyper tension - Generalized anxiety disorder - GERD (gastroesophageal [...] 1987, 1992 - COLONOSCOP W/ OR W/O [facility] SPEC 09/30/2016 normal - 10 year followup - CORRECT BUNION,SIMPLE Bunion X-2 - EGD W/O OR W/BRUSH/WASH 05/16/15 EGD - LIGATE FALLOPIAN TUBE 08/16/03 Tubal ligation - OPEN RX NAVICULAR FX 05/12/2014 ORIF right wrist - PAST SURGICAL HISTORY OF right 5th digit arthroplasty, foot - PAST SURGICAL HISTORY OF 04/2018 LEFT wrist surgery - REMOVAL GALLBLADDER 1994 open cholecystectomy Family History FAMILY HISTORY Problem Relation Age of Onset - Diabetes Mother - Hypertension Mother - Hypertension Father - Heart Failure Father - Hyperlipidemia Father - Cancer Maternal Aunt Uterine - Diabetes Paternal Aunt - Diabetes Paternal Uncle - Colon Cancer Maternal Grandmother in 70s Patient Allergies ALLERGIES No Known Allergies Current Medications Current Outpatient Medications on File Prior to Visit Medication Sig - albuterol HFA (PROVENTIL HFA, VENTOLIN HFA) 90 mcg/actuati on inhaler Inhale 1 Puff as instructed every 4 hours as needed for Whee zing/Shortness of Breath. - omeprazole (PRILOSEC) 20 mg capsule Take 1 capsule by mout h once daily. - umeclidinium (INCRUSE ELLIPTA) 62.5 mcg/actuation inhaler INHALE 1 PUFF INSTRUCTED ONCE DAILY. - atorvastatin (LIPITOR) 20 mg tablet Take 1 tablet by mouth once daily. - busPIRone (BUSPAR) 10 mg tablet Take 1 tablet by mouth twi ce daily. - mupirocin (BACTROBAN) 2 % ointment Apply 1 application to affected area three times daily. Location: nose - venlafaxine hcl(EFFEXOR XR 150 MG 24 HR CAP) Take one(1) t ablet daily. No current facility-administered medications on file prior t o visit. Social History Social History Tobacco Use - Smoking status: Current Every Day Smoker Packs/day: 1.00 Years: 30.00 Pack years: 30.00 Types: Cigarettes - Smokeless tobacco: Never Used - Tobacco comment: Father smoked in childhood home. Has live d with smokers as an adult. Substance Use Topics - Alcohol use: Yes Comment: Rarely - Drug use: No REVIEW OF SYSTEMS: as above ? Reviewed relevant PMHx, PSHx, Social Hx, current medications and allergies. EXAM: BP 122/78 Pulse 72 Resp 14 Wt 107 kg (236 lb) LMP BMI 37.04 kg/m? General Appearance: Well appearing, alert, in no acute distr ess, well-hydrated, well nourished.. Neck: Supple, no adenopathy; thyroid symmetric, normal size, no bruits. Lungs: lungs clear to auscultation. No wheezing, rhonchi, ra les. Heart: RRR without murmur, gallop, or rubs. No ectopy. Abdomen: Normal abdominal exam, Abdomen soft, non-tender. Frank wel sounds normal. No masses, organomegaly. Extremities: No deformities, edema. Health Maintenance List HPV TESTING due on 10/25/2015 ANNUAL PCP TEAM CHRONIC DISEASE VISIT due on 02/08/2020 MAMMOGRAM due on 02/23/2020 DIABETES SCREEN due on 02/04/2022 LIPID SCREEN due on 02/05/2024 PAP TESTING due on 02/23/2024 DTAP,TDAP,TD(2 - Td) due on 08/07/2026 COLORECTAL CANCER SCREENING,SEE MODIFIER due on 10/01/2026 ONE PNEUMOVAX PRIOR TO AGE 65 Completed INFLUENZA Completed Component Latest Ref Rng AND Units 05/13/2019 GLUCOSE UA (POCT) Negative mg/dL Negative BILIRUBIN UA (POCT) Negative Negative KETONE UA (POCT) Negative mg/dL Negative SPECIFIC GRAVITY UA (POCT) 1.005 - 1.030 1.025 HEMOGLOBIN/BLOOD UA (POCT) Negative Trace-intact (A) PH UA (POCT) 4.5 - 8.0 5.5 PROTEIN UA (POCT) Negative mg/dL Negative UROBILINOGEN UA (POCT) Normal E.U./dL 0.2 NITRITE UA (POCT) Negative Negative LEUKOCYTES UA (POCT) Negative Negative COLOR UA (POCT) Yellow CLARITY UA (POCT) Clear ASSESSMENT/PLAN: 1. Mixed hyperlipidemia - ICD9: 272.2, ICD10: E78.2 (primary diagnosis) - to be determined upon return of lab results - Continue current medication. - Encouraged following a low fat, low cholesterol diet. - Discussed the benefits of regular aerobic exercise and bryan ght loss. - ATORVASTATIN 20 MG TABLET 2. Chronic obstructive pulmonary disease, unspecified COPD t ype (HCC) - ICD9: 496, ICD10: J44.9 - Stable, continue with current inhalers as prescribed. 3. Dysuria - ICD9: 788.1, ICD10: R30.0 - UA negative for leuk trase, nitrates or other signs of inf ection. Patient states that symptoms are resolving. Advised patient to continue to push fluids, follow-up if worsening. - UA DIP, URINE (POC) 4. Bipolar affective disorder, remission status unspecified (HCC) - ICD9: 296.80, ICD10: F31.9 - Continue with following with counseling center and current medications. Get labs, RTO in 6 months, sooner if needed. RANDALL Mendoza on 2019-05-13 CNOV Office Visit (FAMPWS) Normal 05-13-20 [place] MATILDE DAMON ([id number]) 1965 [facility] Date Time Provider Department ([id number]) 05/13/19 1:00 PM JOSEPH HERN[facility]NDEZ ([facility] During your visit today, we recorded the following informati on about you: Pulse Respiration Blood pressure Weight 72/minute 14/minute 122/78 107 kg Last Period 06/13/18 Joseph Hernández APRN.EARLENE 05/13/2019 1:49 PM Signed Chief Complaint Patient presents with: Recheck HPI Matilde Rasmussen Nelson is a 54 year old female who presents here tod for Chronic Medical Conditions.. COPD: Using inhalers as prescribed. No side effects. No ch jm in wheezing, shortness of breath, fevers or chills. HYPERLIPIDEMIA: Patient is taking medications: Yes. Patient is watching diet: Yes. Patient denies myalgias: Yes. Patient denies gi upset: Yes PVD: Still taking Aspirin 81 mg daily. No leg pain or swelling at this time. [facility] with the [facility]. Doing well with Effexor and Buspar. Does mention that she has been having some compl aints of dysuria. Present for about 2 weeks. No recent antibiotic use. Has bee n increasing fluids and using cranberry juice. Feels like symptoms are improving but still lingering. No fevers or back pain. Past medical history, appointments, medications, allergies r anilwed. Previous Medical History PAST MEDICAL HISTORY Diagnosis Date - Carpal tunnel syndrome - Depression - Elevated blood pressure reading without diagnosis of hyper tension - Generalized anxiety disorder - GERD (gastroesophageal [...] OF right 5th digit arthroplasty, foot - PAST SURGICAL HISTORY OF 04/2018 LEFT wrist surgery - REMOVAL GALLBLADDER 1993 open cholecystectomy Family History FAMILY HISTORY Problem Relation Age of Onset - Diabetes Mother - Hypertension Mother - Hypertension Father - Heart Failure Father - Hyperlipidemia Father - Cancer Maternal Aunt Uterine - Diabetes Paternal Aunt - Diabetes Paternal Uncle - Colon Cancer Maternal Grandmother in 70s Patient Allergies ALLERGIES No Known Allergies Current Medications Current Outpatient Medications on File Prior to Visit Medication Sig - albuterol HFA (PROVENTIL H FA, VENTOLIN HFA) 90 mcg/actuation inhaler Inhale 1 Puff as instructed every 4 hours as needed for Wheezin g/Shortness of Breath. - omeprazole (PRILOSEC) 20 mg capsule Take 1 capsule by mout h once daily. - umeclidinium (INCRUSE ELLIPTA) 62.5 mcg/actuation in haler INHALE 1 PUFF INSTRUCTED ONCE DAILY. - atorvastatin (LIPITOR) 20 mg tablet Take 1 tablet by mouth once daily. - busPIRone (BUSPAR) 10 mg tablet Take 1 tablet by mouth twi ce daily. - mupirocin (BACTROBAN) 2 % ointment Apply 1 application to affected area three times daily. Location: nose - venlafaxine hcl(EFFEXOR XR 150 MG 24 HR CAP) Take one(1) t ablet daily. No current facility-administered medications on file prior t o visit. Social History Social History Tobacco Use - Smoking status: Current Every Day Smoker Packs/day: 1.00 Years: 30.00 Pack years: 30.00 Types: Cigarettes - Smokeless tobacco: Never Used - Tobacco comment: Father smoked in childhood ho me. Has lived with smokers as an adult. Substance Use Topics - Alcohol use: Yes Comment: Rarely - Drug use: No REVIEW OF SYSTEMS: as above ? Reviewed relevant PMHx, PSHx, Social Hx, current medicatio ns and allergies. EXAM: BP 122/78 Pulse 72 Resp 14 Wt 107 kg (236 lb) LMP BMI 37.04 kg/m? General Appearance: Well montez earing, alert, in no acute distress, well-hydrated, well nourished.. Neck: Supple, no adenopathy; thyroid symmetric, normal size, no bruits. Lungs: lungs clear to auscultation. No wheezing, rhonchi, ra les. Heart: RRR without murmur, gallop, or rubs. No ectopy. Abdomen: Normal abdominal exam, Abdomen soft, non-tender. Bowel sounds normal. No masses, organomegaly. Extremities: No deformities, edema. Health Maintenance List HPV TESTING due on 10/25/2015 ANNUAL PCP TEAM CHRONIC DISEASE VISIT due on 02/08/2020 MAMMOGRAM due on 02/23/2020 DIABETES SCREEN due on 02/04/2022 LIPID SCREEN due on 02/05/2024 PAP TESTING due on 02/23/2024 DTAP,TDAP,TD(2 - Td) due on 08/07/2026 COLORECTAL CANCER SCREENING,SEE MODIFIER due on 10/01/2026 ONE PNEUMOVAX PRIOR TO AGE 65 Completed INFLUENZA Completed Component Latest Ref Rng AND Units 05/13/2019 GLUCOSE UA (POCT) Negative mg/dL Negative BILIRUBIN UA (POCT) Negative Negative KETONE UA (POCT) Negative mg/dL Negative SPECIFIC GRAVITY UA (POCT) 1.005 - 1.030 1.025 HEMOGLOBIN/BLOOD UA (POCT) Negative Trace-intact (A) PH UA (POCT) 4.5 - 8.0 5.5 PROTEIN UA (POCT) Negative mg/dL Negative UROBILINOGEN UA (POCT) Normal E.U./dL 0.2 NITRITE UA (POCT) Negative Negative LEUKOCYTES UA (POCT) Negative Negative COLOR UA (POCT) Yellow CLARITY UA (POCT) Clear ASSESSMENT/PLAN: 1. Mixed hyperlipidemia - ICD9: 272.2, ICD10: E78.2 (primary diagnosis) - to be determined upon return of lab results - Continue current medication. - Encouraged following a low fat, low cholesterol diet. - Discussed the benefits of regular aerobic exercise and bryan ght loss. - ATORVASTATIN 20 MG TABLET 2. Chronic obstructive pulmonary disease, unspec ified COPD type (HCC) - ICD9: 496, ICD10: J44.9 - Stable, continue with current inhalers as prescribed. 3. Dysuria - ICD9: 788.1, ICD10: R30.0 - UA negative for leuk trase, nitrates or other signs of i nfection. Patient states that symptoms are resolving. Advised patient to ashley vergara to push fluids, follow-up if worsening. - UA DIP, URINE (POC) 4. Bipolar affective disorder, remission status unspecified ([facility]) - ICD9: 296.80, ICD10: F31.9 - Continue with following with counseling center and current medications. Get labs, RTO in 6 months, sooner if needed. RANDALL Mendoza APRN.CNP 05/13/2019 1:03 PM Signed Please get your labs completed when you can. Joseph Hernández APRN.CNP Referring Provider: JOSEPH HERNÁNDEZ ([facility]) [[id number]] Allergies As of Date: 05/13/2019 (No Known Allergies) Date Reviewed: 05/13/2019 Reviewed by: Morenita Del Castillo Ma - Fully Assessed Reason for Visit: Recheck [92] Primary Visit Diagnosis:Mixed hyperlipidemia [E78.2] Other Visit Diagnoses:Chronic obstructive pulmon rhea disease, unspecified COPD type (HCC) [J44.9] Dysuria [R30.0] Bipolar affective disorder, remission status unspecified ([facility]) [F31.9] PVD (peripheral vascular disease) ([facility]) [I73.9] Order(s):atorvastatin (LIPITOR) 20 mg tabletTake 1 tablet by mouth once daily.Disp: 30 tabletRfl: 3 UA DIP, URINE (POC) [[id number]] Order #: [id number] #:[id number] Prescriptions as of 05/13/2019 Sig: ATORVASTATIN 20 MG TABLET Take 1 tablet by mouth once d* ALBUTEROL SULFATE HFA 90 MCG/* Inhale 1 Puff as instructed e * OMEPRAZOLE 20 MG CAPSULE,VENECIA* Take 1 capsule by mouth once * UMECLIDINIUM 62.5 MCG/ACTUATI* INHALE 1 PUFF INSTRUCTED O * BUSPIRONE 10 MG TABLET Take 1 tablet by mouth twice * MUPIROCIN 2 % TOPICAL OINTMENT Apply 1 application to affect * * EFFEXOR XR 150 MG CAPSULE,EXT* Take one(1) tablet daily. Problem List As Of Date 05/13/2019 Noted Resolved LUMBAGO [M54.5] 10/28/2004 COMPLIC SURGICAL CODER ORTHO DEVICE [T84.89XA] 04/01/2005 PAIN IN LIMB [M79.609] 04/01/2005 CARPAL TUNNEL SYNDROME [G56.00] 12/11/2006 CERVICALGIA [M54.2] 02/12/2007 JOINT PAIN-SHLDER [M25.519] 02/12/2007 HIDRADENITIS [L73.2] 11/09/2007 Unspecified Peripheral Vascular Disease [I73.9] 05/15/2009 Exostosis of unspecified site [M89.8X9] 07/02/2011 Hallux valgus (acquired) [M20.10] 07/02/2011 Folliculitis [L73.9] 09/08/2013 Tobacco use disorder [F17.200] Right wrist fracture [S62.101A] 05/11/2014 Nontoxic uninodular goiter [E04.1] 05/28/2014 PVD (peripheral vascular disease) (HCC) [I73.9] 04/26/2015 Chronic bronchitis (HCC) [J42] 04/26/2015 Bipolar disorder (HCC) [F31.9] 04/26/2015 Gastroesophageal reflux disease [K21.9] 05/16/2015 5 Centrilobular emphysema (HCC) [J43.2] 06/08/2015 Hyperlipidemia [E78.5] 09/24/2016 Gastroesophageal reflux disease without esophag*09/24/2016 Other instructions from your clinician: Please get your labs completed when you can. Joseph Hernández APRN.EARLENE Prescriptions ordered this encounter Disp Refills Start End ATORVASTATIN 20 MG TABLET 30 t* 3 05/13/2019 Route: ORAL Sig: Take 1 tablet by mouth once daily. Medications Discontinued During This Encounter atorvastatin (LIPITOR) 20 mg tablet 30 t* 3 02/07/20192018 Route: ORAL Sig: Take 1 tablet by mouth once daily. Disc: Reason for discontinue is not on file. Disposition: Return in about 6 months (around 11/12/2019) for routine follow up. Follow-up and Disposition History Recorded Encounter Status:Closed by JOSEPH HERNÁNDEZ CNP on 05/13/19 progress on 2019-03 PROGRESS HNO ID: [id number] Normal 04-23-2019 [facility] Author: Berna (Earlene) [facility] ([id number]) Service: ? Author Type: Nurse Practitioner Type: Progress Notes Filed: 04/23/2019 11:26 AM Note Text: CC: Patient presents with: Ear Pain: Bilateral ear pain X 1 wk, pt has not tried any me dication Wart: Pt has a wart on her big left toe, first noticed this summer, has been growing, not painful HPI Matilde Damon is a 54 year old female who presents today fo r above. Bilateral ear pain x 1 week. Positive for nasal congestion a nd runny nose. Denies ear pressure, hearing loss, tinnitus, drainage, fever , chills. Denies seasonal/environemental allergies. Has not taken any OTC treatments. Possible wart on left big toe: started this summer and has g radually gotten bigger. Initially thought it was a callus. Denies zulma n, redness or swelling. REVIEW OF SYSTEMS See HPI PAST MEDICAL HISTORY Diagnosis Date - Carpal tunnel syndrome - Depression - Elevated blood pressure reading without diagnosis of hyper tension - Generalized anxiety disorder - GERD (gastroesophageal reflux disease) Gastritis - Hyperlipidemia - Peripheral arterial disease (HCC) right leg - PMH - PAST MEDICAL HISTORY OF mild retardation - PMH - PAST MEDICAL HISTORY OF ADD? - PMH - PAST MEDICAL HISTORY OF arthritis - Tobacco use disorder PAST SURGICAL HISTORY Procedure Laterality Date - BALLN ANGIOPLASTY PERC,FEM-POP 2--10 right LEG angioplasty superficial femoral and profunda [...] OF right 5th digit arthroplasty, foot - PAST SURGICAL HISTORY OF 04/2018 LEFT wrist surgery - REMOVAL GALLBLADDER 1993 open cholecystectomy ALLERGIES Patient has no known allergies. MEDICATIONS albuterol HFA (PROVENTIL HFA, VENTOLIN HFA) 90 mcg/actuation inhaler Inhale 1 Puff as instructed every 4 hours as needed for Whee zing/Shortness of Breath. omeprazole (PRILOSEC) 20 mg capsule Take 1 capsule by mouth once daily. umeclidinium (INCRUSE ELLIPTA) 62.5 mcg/actuation inhaler IN [place] 1 PUFF INSTRUCTED ONCE DAILY. atorvastatin (LIPITOR) 20 mg tablet Take 1 tablet by mouth o nce daily. busPIRone (BUSPAR) 10 mg tablet Take 1 tablet by mouth twice daily. mupirocin (BACTROBAN) 2 % ointment Apply 1 application to af fected area three times daily. Location: nose venlafaxine hcl(EFFEXOR XR 150 MG 24 HR CAP) Take one(1) tab let daily. FAMILY HISTORY Problem Relation Age of Onset - Diabetes Mother - Hypertension Mother - Hypertension Father - Heart Failure Father - Hyperlipidemia Father - Cancer Maternal Aunt Uterine - Diabetes Paternal Aunt - Diabetes Paternal Uncle - Colon Cancer Maternal Grandmother in 70s Social History Tobacco Use - Smoking status: Current Every Day Smoker Packs/day: 1.00 Years: 30.00 Pack years: 30.00 Types: Cigarettes - Smokeless tobacco: Never Used - Tobacco comment: Father smoked in childhood home. Has live d with smokers as an adult. Substance Use Topics - Alcohol use: Yes Comment: Rarely - Drug use: No PHYSICAL EXAM BP 116/74 Pulse 74 Temp 36.4 ?C (97.6 ?F) Resp 16 Wt 107 kg (236 lb) SpO2 93% BMI 37.04 kg/m? General Appearance: well appearing, in no acute distress, al ert Eyes: conjunctiva pink and moist, no icterus, sclera white, non-injected Ears: external ears normal to inspection and palpation, gely ls clear, Left tympanic membrane normal. , Right tympanic membrane normal Nose/sinus: Nares normal. Septum midline. Mucosa normal. No drainage., No sinus tenderness Neck: Neck supple, No adenopathy Oropharynx: lips normal without lesions, tongue midline and normal, soft palate, uvula, and tonsils normal Left great toe: approximately nickel sized raised guzmán, fiss ured, rough textured lesion. ASSESSMENT/PLAN: 1. Acute ear pain, bilateral - ICD9: 388.70, ICD10: H92.03 ( primary diagnosis) Eustachian tube dysfunction, no sign of infection - Start Flonase and/or Sudafed - OTC analgesics as needed - Follow-up in one week if no improvement or sooner if worse dionna 2. Skin lesion of foot - ICD9: 709.9, ICD10: L98.9 Does not have warty appearance. Referred to podiatry for fur ther evaluation. Patient has a general repair mechanic that she has seen in past, she will schedule appointment Prescription instructions reviewed with patient as applicabl e. Potential red flag symptoms discussed with the patient. Reviewed appro priate action plan to take if red flag symptoms occur. Patient agreeable t o treatment plan. Berna Manuel APRN.CNP cnvazquez on 2019-04-23 CNOV Office Visit (UCWSTR) Normal 04-23-[address] [place] [address] [facility] MATILDE DAMON ([id number]) 1965 [facility] Date Time Provider Department ([id number]) 04/23/19 10:45 AM BERNA MANUEL (EARLENE) WSTR During your visit today, we recorded the following informati on about you: Temperature Pulse Respiration Blood pressure 97.6 degrees 74/minute 16/minute 116/74 Weight 107 kg Berna Manuel APRN.CNP 04/23/2019 11:11 AM Signed Skin issue on your toe: Follow-up with your foot doctor For ear pain: start Flonase nasal spray and/or Sudafed for d econgestant. Follow-up in one week if no improvement in pain Berna Manuel APRN.CNP 04/23/2019 11:26 AM Signed CC: Patient presents with: Ear Pain: Bilateral ear pain X 1 wk, pt has not tried any me dication Wart: Pt has a wart on her big left toe, first noticed this summer, has been growing, not painful HPI Matilde Damon is a 54 year old female who presents today fo r above. Bilateral ear pain x 1 week. Positive for nasal congestion a nd runny nose. Denies ear pressure, hearing loss, tinnitus, drainage, fever, chills. Denies seasonal/environemental allergies. Has not taken any OTC corinna atments. Possible wart on left big toe: started this summer and has gradually gotten bigger. Initially thought it was a callus. Denies pain , redness or swelling. REVIEW OF SYSTEMS See HPI PAST MEDICAL HISTORY Diagnosis Date - Carpal tunnel syndrome - Depression - Elevated blood pressure reading without diagnosis of hyper tension - Generalized anxiety disorder - GERD (gastroesophageal [...] 1987, 1992 - COLONOSCOP W/ OR W/O [facility] SPEC 09/30/2016 normal - 10 year followup - CORRECT BUNION,SIMPLE Bunion X-2 - EGD W/O OR W/BRUSH/WASH 05/16/15 EGD - LIGATE FALLOPIAN TUBE 08/16/03 Tubal ligation - OPEN RX NAVICULAR FX 05/12/2014 ORIF right wrist - PAST SURGICAL HISTORY OF right 5th digit arthroplasty, foot - PAST SURGICAL HISTORY OF 04/2018 LEFT wrist surgery - REMOVAL GALLBLADDER 1993 open cholecystectomy ALLERGIES Patient has no known allergies. MEDICATIONS albuterol HFA (PROVENTIL HFA, VENTOLIN HFA) 90 m cg/actuation inhaler Inhale 1 Puff as instructed every 4 hours as needed for Wheezin g/Shortness of Breath. omeprazole (PRILOSEC) 20 mg capsule Take 1 capsule by mouth once daily. umeclidinium (INCRUSE ELLIPTA) 62.5 mcg/actuation inhaler IN MAGAÑA 1 PUFF INSTRUCTED ONCE DAILY. atorvastatin (LIPITOR) 20 mg tablet Take 1 tablet by mouth o nce daily. busPIRone (BUSPAR) 10 mg tablet Take 1 tablet by mouth twice daily. mupirocin (BACTROBAN) 2 % ointment Apply 1 appli cation to affected area three times daily. Location: nose venlafaxine hcl(EFFEXOR XR 150 MG 24 HR CAP) Take one(1) tab let daily. FAMILY HISTORY Problem Relation Age of Onset - Diabetes Mother - Hypertension Mother - Hypertension Father - Heart Failure Father - Hyperlipidemia Father - Cancer Maternal Aunt Uterine - Diabetes Paternal Aunt - Diabetes Paternal Uncle - Colon Cancer Maternal Grandmother in 70s Social History Tobacco Use - Smoking status: Current Every Day Smoker Packs/day: 1.00 Years: 30.00 Pack years: 30.00 Types: Cigarettes - Smokeless tobacco: Never Used - Tobacco comment: Father smoked in childhood ho me. Has lived with smokers as an adult. Substance Use Topics - Alcohol use: Yes Comment: Rarely - Drug use: No PHYSICAL EXAM BP 116/74 Pulse 74 Temp 36.4 ?C (97.6 ?F) Resp 16 Wt 107 kg (236 lb) SpO2 93% BMI 37.04 kg/m? General Appearance: well appearing, in no acute distress, al ert Eyes: conjunctiva pink and moist, no icterus, sclera white, non-injected Ears: external ears normal to inspection and palpation, gely ls clear, Left tympanic membrane normal. , Right tympanic membrane normal Nose/sinus: Nares normal. Se ptum midline. Mucosa normal. No drainage., No sinus tenderness Neck: Neck supple, No adenopathy Oropharynx: lips normal without lesions, tongue midline and normal, soft palate, uvula, and tonsils normal Left great toe: approximately nickel sized raised guzmán, fiss ured, rough textured lesion. ASSESSMENT/PLAN: 1. Acute ear pain, bilateral - ICD9: 388 .70, ICD10: H92.03 (primary diagnosis) Eustachian tube dysfunction, no sign of infection - Start Flonase and/or Sudafed - OTC analgesics as needed - Follow-up in one week if no improvement or sooner if worse dionna 2. Skin lesion of foot - ICD9: 709.9, ICD10: L98.9 Does not have warty appearance. Referred to podiatry f or further evaluation. Patient has a general repair mechanic that she has seen in the past, she will schedule appointment Prescription instructions reviewed with patient as montez licable. Potential red flag symptoms discussed with the patient. Review ed appropriate action plan to take if red flag symptoms occur. Patient agreeable to treatm ent plan. Berna Manuel APRN.LEAD OXIDE MILL TENDER Referring Provider: SELF [200] Allergies As of Date: 04/23/2019 (No Known Allergies) Date Reviewed: 04/23/2019 Reviewed by: Usha Meyers MA - Fully Assessed Reason for Visit: Ear Pain [817] Cmt: Bilateral ear pain X 1 wk, pt has not tr ied any medication Wart [927] Cmt: Pt has a wart on her big left toe, first not iced this summer, has been growing, not painful Primary Visit Diagnosis:Acute ear pain, bilateral [H92.03] Other Visit Diagnosis:Skin lesion of foot [L98.9] Prescriptions as of 04/23/2019 Sig: ALBUTEROL SULFATE HFA 90 MCG/* Inhale 1 Puff as instructed e * OMEPRAZOLE 20 MG CAPSULE,VENECIA* Take 1 capsule by mouth once * UMECLIDINIUM 62.5 MCG/ACTUATI* INHALE 1 PUFF INSTRUCTED O * ATORVASTATIN 20 MG TABLET Take 1 tablet by mouth once d* BUSPIRONE 10 MG TABLET Take 1 tablet by mouth twice * MUPIROCIN 2 % TOPICAL OINTMENT Apply 1 application to affect * * EFFEXOR XR 150 MG CAPSULE,EXT* Take one(1) tablet daily. Problem List As Of Date 04/23/2019 Noted Resolved LUMBAGO [M54.5] 10/28/2004 COMPLIC SURGICAL CODER ORTHO DEVICE [T84.89XA] 04/01/2005 PAIN IN LIMB [M79.609] 04/01/2005 CARPAL TUNNEL SYNDROME [G56.00] 12/11/2006 CERVICALGIA [M54.2] 02/12/2007 JOINT PAIN-SHLDER [M25.519] 02/12/2007 HIDRADENITIS [L73.2] 11/09/2007 Unspecified Peripheral Vascular Disease [I73.9] 05/15/2009 Exostosis of unspecified site [M89.8X9] 07/02/2011 Hallux valgus (acquired) [M20.10] 07/02/2011 Folliculitis [L73.9] 09/08/2013 Tobacco use disorder [F17.200] Right wrist fracture [S62.101A] 05/11/2014 Nontoxic uninodular goiter [E04.1] 05/28/2014 PVD (peripheral vascular disease) (HCC) [I73.9] 04/26/2015 Chronic bronchitis (HCC) [J42] 04/26/2015 Bipolar disorder (HCC) [F31.9] 04/26/2015 Gastroesophageal reflux disease [K21.9] 05/16/2015 5 Centrilobular emphysema (HCC) [J43.2] 06/08/2015 Hyperlipidemia [E78.5] 09/24/2016 Gastroesophageal reflux disease without esophag*09/24/2016 Other instructions from your clinician: Skin issue on your toe: Follow-up with your foot doctor For ear pain: start Flonase nasal spray and/or Sudafed for d econgestant. Follow-up in one week if no improvement in pain Encounter Status:Closed by BERNA MANUEL CNP on 04/23/19 obsolete on 2019-02 OBSOLETE Refill (FAMPWS) Normal 03-09-2019 Sina raymond MATILDE Nunes ([id number]) 1965 [facility] Date Time Provider Department ([id number]) 03/09/19 JOAQUÍN ISRAEL FAMPWS During your visit today, we recorded the following informati on about you: Marcela Dempsey RN 03/09/2019 3:01 PM Signed [facility] faxed papers requesting refills as follows: Pending Prescriptions Disp Refills ALBUTEROL SULFATE HFA 90 MCG/ACTUATION AEROSOL INHALER 1 Inh aler 5 Sig: Inhale 1 Puff as instructed every 4 hours as needed for Wheezing/Shortness of Breath. MELANI: No Verified pharmacy Last office visit 02-07-19 Please review and advise. Marcela Israel MD 03/09/2019 4:11 PM Signed OK to refill as ordered MD Shanna Melton Ma 03/09/2019 4:12 PM Signed The following approved medic ation requests have been transmitted electronically. Signed Prescriptions Disp Refills albuterol HFA (PROVENTIL HFA, VENTOLIN H FA) 90 mcg/actuation inhaler 1 Inhaler 5 Sig: Inhale 1 Puff as instructed every 4 hours as needed for Wheezing/Shortness of Breath. MELANI: No Authorizing Provider: JOAQUÍN ISRAEL Ma Allergies As of Date: 03/09/2019 (No Known Allergies) Date Reviewed: 02/22/2019 Reviewed by: Lesa Del Castillo - Fully Assessed Reason for Visit: Refill Request [94] Visit Diagnosis:Chronic obstructive pulmonary disease, unspecified COPD type (HCC) [J44.9] Order(s):albuterol HFA (PROVENTIL HFA, VENTOLIN HFA) 90 mcg/ actuation inhalerInhale 1 Puff as instructed every 4 hours as needed f or Wheezing/Shortness of Breath.Disp: 1 InhalerRfl: 5 Prescriptions as of 03/09/2019 Sig: ALBUTEROL SULFATE HFA 90 MCG/* Inhale 1 Puff as instructed e * OMEPRAZOLE 20 MG CAPSULE,VENECIA* Take 1 capsule by mouth once * UMECLIDINIUM 62.5 MCG/ACTUATI* INHALE 1 PUFF INSTRUCTED O * ATORVASTATIN 20 MG TABLET Take 1 tablet by mouth once d* BUSPIRONE 10 MG TABLET Take 1 tablet by mouth twice * MUPIROCIN 2 % TOPICAL OINTMENT Apply 1 application to affect * * EFFEXOR XR 150 MG CAPSULE,EXT* Take one(1) tablet daily. Problem List As Of Date 03/09/2019 Noted Resolved LUMBAGO [M54.5] INVALID FOR* COMPLIC SURGICAL CODER ORTHO DEVICE [T84.89XA] INVALID FOR* PAIN IN [...] INVALID FOR* Gastroesophageal reflux disease [K21.9] INVALID FOR*05/16/20 15 Centrilobular emphysema (HCC) [J43.2] INVALID FOR* Hyperlipidemia [E78.5] INVALID FOR* Gastroesophageal reflux disease without esophag*INVALID FOR* Prescriptions ordered this encounter Disp Refills Start End ALBUTEROL SULFATE HFA 90 MCG/ACTUATI* 1 In* 5 03/09/2019 Cmt: Generic or brand: dispense inhaler preferre d by patient/insurance unless MELANI flag is selected. Route: INHALATION Sig: Inhale 1 Puff as instructed every 4 hours as needed for Wheezing/Shortness of Breath. Medications Discontinued During This Encounter albuterol HFA (PROVENTIL HFA, VENTOL* 1 In* 5 02/12/201802/22 Route: INHALATION Sig: Inhale 1 Puff as instru cted every 4 hours as needed for Wheezing/Shortness of Breath. Disc: Reason for discontinue is not on file. Encounter Status:Closed by SHANNA JETER MA on 03/09/19 progress on 2019-02 PROGRESS HNO ID: [id number] Normal 02-22-2019 [facility] Author: Lesa Wang ([id number]) Service: ? Author Type: Physician Type: Progress Notes Filed: 02/22/2019 2:20 PM Note Text: Matilde Damon is a 53 year old who presents for her annual gynecologic exam. Postmenopausal: No - every 2-3 months HRT use: No. Last Pap: 10/02/2016 normal HPV:N/A History of abnormal pap: No Last mammogram: Today History of abnormal mammogram: Yes - h/o breast biopsy OB History T2 L2 SAB0 TAB0 Ectopic0 Multiple0 Live Births0 Comment: 2 sections PAST MEDICAL HISTORY Diagnosis Date - Carpal tunnel syndrome - Depression - Elevated blood pressure reading without diagnosis of hyper tension - Generalized anxiety disorder - GERD (gastroesophageal [...] 1987, 1992 - COLONOSCOP W/ OR W/O [facility] SPEC 09/30/2016 normal - 10 year followup [...] Grandmother in 70s SOCIAL HISTORY Social History Tobacco Use - Smoking status: Current Every Day Smoker Packs/day: 1.00 Years: 30.00 Pack years: 30.00 Types: Cigarettes - Smokeless tobacco: Never Used - Tobacco comment: Father smoked in childhood home. Has live d with smokers as an adult. Substance Use Topics - Alcohol use: Yes Comment: Rarely - Drug use: No REVIEW OF SYSTEMS Abdomen: No abdominal pain, nausea, vomiting, diarrhea, or c onstipation. No bloating, early satiety, indigestion, or increased flatul ence. Bladder: No dysuria, gross hematuria, urinary frequency, uri nary urgency, or incontinence Breast: No breast lumps, nipple d/c, overlying skin changes, redness or skin retraction Allergies and current medication updated:Yes EXAM: There were no vitals taken for this visit. GENERAL: pleasant, female in no apparent distress BREAST: soft, non-tender, symmetric, no dominant mass, mary jane l nipple-areolar complex, no lymphadenopathy and no nipple dis charge CHEST: Normal inspiratory effort ABDOMEN: soft, non-tender and no masses PELVIC: external genitalia normal, no vulvar lesions, no cer vical lesions, normal appearing perineal body and perianal region BIMANUAL: uterus normal size, shape and consistency, no adne xal masses and non-tender RECTOVAGINAL: patient declined. NEURO: alert and oriented x3,exam grossly non-focal EXTREMITIES: normal ASSESSMENT/PLAN: 1) Health maintenance: Pap done with reflex HPV Mammogram today Nutrition, exercise and routine health maintenance exams rev iewed. Colon cancer screening: up to date with screening 2) Follow up one year or sooner as needed Lesa Del Castillo MD PROGRESS HNO ID: [id number] Normal 02-22-2019 [facility] Author: Debbie Lara [place] ([id number]) Service: ? Author Type: ? Type: Progress Notes Filed: 02/22/2019 1:33 PM Note Text: Radiology Service Progress Note PATIENT NAME: Matilde Damon DATE OF SERVICE: February 22, 2019 TIME: 1:33 PM PATIENT IDENTITY VERIFICATION COMPLETED USING TWO (2) METHOD S: Name and Date of confirmed by patient verbally. PATIENT GENDER DATA: Female. status: : No status: NO. PATIENT RELEVANT IMPLANT DATA REVIEWED: Not Applicable RADIOLOGY DEPARTMENT: Mammography PERIPHERAL IV DATA: Not applicable SIGNED BY: Debbie Lara February 22, 2019 1:33 PM [place] screening on 12-03-01 [facility] SCREENING * * *Final Report* * * Normal [facility] DATE OF EXAM: Feb 22 2019 1:51PM [place] ([id number]) WOW [id number] - [facility] SCREENING / PROCEDURE REASON: Encounter for screening mammogram for veda gnant neoplasm of breast * * * * Physician Interpretation * * * * RESULT: #[id number] - [facility] SCREENING BILATERAL DIGITAL SCREENING MAMMOGRAM WITH CAD: 02/22/2019 HISTORY: Screening Mammogram - patient reports NO breast sym ptoms /priors available for comparison. RESULT: TECHNIQUE: The study was acquired using full field digital t echnology and interpreted from soft copy. Current study was also evaluated with a Computer Aided Detec tion (CAD). Comparison is made to exams dated: 12/01/2017 mammogram, 2016 mammogram - [facility], 05/11/2014 mammog ellen - [facility], 07/29/2013 mammogram, and 06/22/2012 mammogra m - [facility]. There are scattered fibroglandular el ements in both breasts. No significant masses, calcifications, or other findings are seen in either breast. There has been no significant interval change. IMPRESSION: NEGATIVE There is no mammographic evidence of malignancy. A 1 year sc reening mammogram is recommended. Quinton Small M.D. ssd/penrad:02/22/2019 16:29:44 Electric Mule Driver(s): Dolly Peñaloza, RT(R)(M), [facility] letter sent: Normal over 40 Mammogram BI-RADS: 1 Negative Multiple national specialty organizations have released [address] [facility] cancer screening guidelines for women at average risk for developin g breast cancer - guidelines that are based on both evidence and opin ion, yet differ on when to start and how often to screen for breast c ancer. With representation from Breast Imaging, Internal Medicine, Women 's Health, Family Medicine, and Medical/Surgical Oncology, the [facility] has carefully reviewed the data and reached the following consen elmira: 1) All women should engage in shared decision-making with eir providers to decide when to start and how often to screen; 2) All women should have the opportunity to start screening mammography at age 40; 3) For women ages 45-55, we recommend annual screening mammo grams; 4) For women ages 55 and over, we support both the transitio n from an annual to a biennial interval if this aligns more with patie nt's values and preferences, or continuation with annual screening; 5) All women should discuss with their providers when to sto p screening mammograms. Installment Dealer: Tab Transcribe Date/Time: Feb 22 2019 1:34P Dictated by: QUINTON SMALL MD This examination was interpreted and the report reviewed and electronically signed by: QUINTON SMALL MD on Feb 22 2019 4:29PM EST [id number] cytology on 2019-02 CYTOLOGY Specimen originated from [facility] Normal 02-22-2019 [place] Specimen #: [id number] Clinic Submitting Physician: LESA DEL CASTILLO MD [place] SPECIMEN SUBMITTED ( [id number]) A: CERVICAL, SCREENING, FLUID FINAL DIAGNOSIS A. CERVICAL, SCREENING, FLUID Satisfactory for interpretation. Negative for intraepithelial lesion or malignancy. Predominance of coccobacilli consistent with shift in vagina l loc. This specimen has been analyzed by the ThinPrep Imaging Syst em, an automated imaging and review system, which assists the labor atory in evaluating cells on ThinPrep Pap tests. Following automated imaging, selected dacosta from every slide are reviewed by a cytotechn ologist. MERLE Holloway(ASCP) (Electronic Signature) CLINICAL DATA ROUTINE EXAM, HPV Testing: Yes, Reflex HPV for ASCUS Date of Last Menstrual Period: perimenopausal Additional Testing: Reflex HPV testing for ASCUS STAINS A: CERVICAL, SCREENING, FLUID THIN PREP STUNT PERSON Conor Wetzel M.D., Surgical Scrub Technologist Date of Report: 02/25/2019 Date of Procedure: 02/22/2019 Date of Receipt: 02/24/2019 Submitted by: LESA DEL CASTILLO MD Location: [place] Diagnostic interpretation performed at [facility], [address] [place] [id number]. CLIA Number: [id number] The Pap Smear is a screening test for cervical cancer. False negative results occur with all screening tests, emphasizing the need for rescreening at recommended intervals, and clinical correlati on. cnov on 2019-02-22 CNOV Office Visit (WOOB) Normal 02-22-2019 [place] [facility] MATILDE DAMON ([id number]) 1965 [facility] Date Time Provider Department ([id number]) 02/22/19 2:00 PM LESA DEL CASTILLO During your visit today, we recorded the following informati on about you: Blood pressure Weight Height 138/90 105.7 kg 1.7 m Lesa Del Castillo MD 02/22/2019 2:20 PM Signed Matilde Rasmussen Nelson is a 53 year old who presents for her annual gynecologic exam. Postmenopausal: No - every 2-3 months HRT use: No. Last Pap: 10/02/2016 normal HPV:N/A History of abnormal pap: No Last mammogram: Today History of abnormal mammogram: Yes - h/o breast biopsy OB History T2 L2 SAB0 TAB0 Ectopic0 Multiple0 Live Births0 Comment: 2 sections PAST MEDICAL HISTORY Diagnosis Date - Carpal tunnel syndrome - Depression - Elevated blood pressure reading without diagnosis of hyper tension - Generalized anxiety disorder - GERD (gastroesophageal [...] Grandmother in 70s SOCIAL HISTORY Social History Tobacco Use - Smoking status: Current Every Day Smoker Packs/day: 1.00 Years: 30.00 Pack years: 30.00 Types: Cigarettes - Smokeless tobacco: Never Used - Tobacco comment: Father smoked in childhood ho me. Has lived with smokers as an adult. Substance Use Topics - Alcohol use: Yes Comment: Rarely - Drug use: No REVIEW OF SYSTEMS Abdomen: No abdominal pain, nausea, vomiting, diarrhea, or constipation. No bloating, early satiety, indigestion, or increased flatulenc e. Bladder: No dysuria, gross hematuria, urinary frequenc y, urinary urgency, or incontinence Breast: No breast lumps, nipple d/c, overlying skin ch anges, redness or skin retraction Allergies and current medication updated:Yes EXAM: There were no vitals taken for this visit. GENERAL: pleasant, female in no apparent distress BREAST: soft, non-tender, symmetric, no dominant mass, normal nipple-areolar complex, no lymphadenopathy and no nipple discharge CHEST: Normal inspiratory effort ABDOMEN: soft, non-tender and no masses PELVIC: external genitalia normal, no vulvar lesions, no cer vical lesions, normal appearing perineal body and perianal region BIMANUAL: uterus normal size, shape and consistency, no adne xal masses and non-tender RECTOVAGINAL: patient declined. NEURO: alert and oriented x3,exam grossly non-focal EXTREMITIES: normal ASSESSMENT/PLAN: 1) Health maintenance: Pap done with reflex HPV Mammogram today Nutrition, exercise and routine health maintenance exams rev iewed. Colon cancer screening: up to date with screening 2) Follow up one year or sooner as needed MD Fidel Chavez Pss 02/25/2019 3:07 PM Signed Pap logged reminder letter mailed to patient. Fidel Whelan Pss Referring Provider: SELF [200] Allergies As of Date: 02/22/2019 (No Known Allergies) Date Reviewed: 02/22/2019 Reviewed by: Lesa Del Castillo - Fully Assessed Reason for Visit: Yearly Exam [187] Primary Visit Diagnosis:Encounter for gynecological examinat ion without abnormal finding [Z01.419] Other Visit Diagnoses:Encounter for screening mammogram for malignant neoplasm of breast [Z12.31] Encounter for screening for malignant neoplasm of cervix [Z12.4] Order(s):[facility] SCREENING [[id number]] Order #: [id number] FUTURE PAP FLUID CERVICAL SCREENING [[id number]] Order #: [id number] . #:[id number] Prescriptions as of 02/22/2019 Sig: OMEPRAZOLE 20 MG CAPSULE,VENECIA* Take 1 capsule by mouth once * UMECLIDINIUM 62.5 MCG/ACTUATI* INHALE 1 PUFF INSTRUCTED O * ATORVASTATIN 20 MG TABLET Take 1 tablet by mouth once d* BUSPIRONE 10 MG TABLET Take 1 tablet by mouth twice * ALBUTEROL SULFATE HFA 90 MCG/* Inhale 1 Puff as instructed e * MUPIROCIN 2 % TOPICAL OINTMENT Apply 1 application to affect * * EFFEXOR XR 150 MG CAPSULE,EXT* Take one(1) tablet daily. Problem List As Of Date 02/22/2019 Noted Resolved LUMBAGO [M54.5] INVALID FOR* COMPLIC SURGICAL CODER ORTHO DEVICE [T84.89XA] INVALID FOR* PAIN IN [...] INVALID FOR* Gastroesophageal reflux disease [K21.9] INVALID FOR*05/16/20 15 Centrilobular emphysema (HCC) [J43.2] INVALID FOR* Hyperlipidemia [E78.5] INVALID FOR* Gastroesophageal reflux disease without esophag*INVALID FOR* Disposition: Return in about 1 year (around 02/23/2020) for R outine STUNT PERSON exam. Follow-up and Disposition History Recorded Letter Text Letter Text Encounter Status:Closed by LESA DEL CASTILLO MD on 02/22/19 cnco on 2019-02-22 CNCO HNO ID: [id number] Normal 02-22-2019 [facility] Author: Mammography Coordinator ([id number]) Service: ? Author Type: Physician Type: Letter Filed: 02/23/2019 11:34 PM Note Text: February 22, 2019 PID: [id number] Matilde Damon [address] [place] [address] Dear Ms. Damon, We are pleased to inform you that the results of your recent breast imaging exam on 02/22/2019 are normal. Early detection of cancer is very important. We also underst and recommendations regarding breast cancer screening are contro versial. Please discuss with your primary care provider which strateg y is best for you and whether a mammogram is right for you. Your imaging studies and report will be kept on file at [facility] as part of your permanent medical record and are available f or your continuing care. Thank you for allowing us to help in meeting your health car e needs. Sincerely, Dr. Small Interpreting Radiologist [facility] (Normal over 40) progress on 2019-01 PROGRESS HNO ID: [id number] Normal 02-07-2019 [facility] Author: Joseph Mcgee) Jareth Wang ([id number]) Service: ? Author Type: Nurse Practitioner Type: Progress Notes Filed: 02/07/2019 3:08 PM Note Text: Chief Complaint Patient presents with: Recheck Imm/Inj: Flu Vaccine HPI Matilde Damon is a 53 year old female who presents here tod ay for Above Complaints. Patient presenting to the office for chronic medical issue f kinga up. Would like get the influenza vaccine. HYPERLIPIDEMIA: Patient is taking medications: No. Patient is watching diet: No. Patient denies myalgias: Yes Patient denies gi upset: Yes She is seeing women[facility] health next month for mammogram, pap. COPD: She does use her inhaler as prescribed. She states daniel t she does have shortness of breath. She is a smoker. She has bipolar d isease, follows at the counseling center. Has not tried patches. No chest pain. No fevers or chills. Past medical history, appointments, medications, allergies r tiniewed. Previous Medical History PAST MEDICAL HISTORY Diagnosis Date - Carpal tunnel syndrome - Depression - Elevated blood pressure reading without diagnosis of hyper tension - Generalized anxiety disorder - GERD (gastroesophageal reflux disease) Gastritis - Hyperlipidemia - Peripheral arterial disease (HCC) right leg - PMH - PAST MEDICAL HISTORY OF mild retardation - PMH - PAST MEDICAL HISTORY OF ADD? - PMH - PAST MEDICAL HISTORY OF arthritis - Tobacco use disorder Previous Surgical History PAST SURGICAL HISTORY Procedure Laterality Date - BALLN ANGIOPLASTY PERC,FEM-POP 2--10 right LEG angioplasty superficial femoral and profunda - BX OF BREAST; INCISIONAL Bx of left breast, incisional- benign - DELIVERY ONLY 1987, 1992 - COLONOSCOP W/ OR W/O [facility] SPEC 09/30/2016 normal - 10 year followup [...] No Known Allergies Current Medications Current Outpatient Medications on File Prior to Visit: busPIRone (BUSPAR) 10 mg tablet Take 1 tablet by mouth twice daily. omeprazole (PRILOSEC) 20 mg capsule Take 1 capsule by mouth once daily. umeclidinium (INCRUSE ELLIPTA) 62.5 mcg/actuation inhaler IN [place] 1 PUFF INSTRUCTED ONCE DAILY. mupirocin (BACTROBAN) 2 % ointment Apply 1 application to af fected area three times daily. Location: nose simvastatin (ZOCOR) 10 mg tablet TAKE 1 TABLET BY MOUTH AT B EDTIME ASPIRIN 81 MG TAB Take one(1) tablet daily. albuterol HFA (PROVENTIL HFA, VENTOLIN HFA) 90 mcg/actuation inhaler Inhale 1 Puff as instructed every 4 hours as needed for Whee zing/Shortness of Breath. venlafaxine hcl(EFFEXOR XR 150 MG 24 HR CAP) Take one(1) tab let daily. No current facility-administered medications on file prior t o visit. Social History Social History Socioeconomic History Marital status: Spouse name: Not on file Number of children: 2 Years of education: Not on file Highest education level: Not on file Occupational History Occupation: Disabled-mental illness Social Needs Financial resource strain: Not on file Food insecurity: Worry: Not on file Inability: Not on file Transportation needs: Medical: Not on file Non-medical: Not on file Tobacco Use Smoking status: Current Every Day Smoker Packs/day: 1.00 Years: 30.00 Pack years: 30 Types: Cigarettes Smokeless tobacco: Never Used Tobacco comment: Father smoked in childhood home. Has lived with smokers as an adult. Substance and Sexual Activity Alcohol use: Yes Comment: Rarely Drug use: No Sexual activity: Yes Partners: Male control/protection: Tubal Ligation Lifestyle Physical activity: Days per week: Not on file Minutes per session: Not on file Stress: Not on file Relationships Social connections: Talks on phone: Not on file Gets together: Not on file Attends mandaen service: Not on file Active member of club or organization: Not on file Attends meetings of clubs or organizations: Not on file Relationship status: Not on file Intimate partner violence: Fear of current or ex partner: Not on file Emotionally abused: Not on file Physically abused: Not on file Forced sexual activity: Not on file Other Topics Concerns: Not on file Social History Narrative Not on file REVIEW OF SYSTEMS: as above ? Reviewed relevant PMHx, PSHx, Social Hx, current medications and allergies. EXAM: BP 124/80 (BP Site: Left Arm, BP Position: Sitting, BP Cuff Size: Regular Adult) Pulse 89 Resp 18 Wt 99.3 kg (219 lb) LMP (LMP Unknown) SpO2 93% BMI 33.30 kg/m? General Appearance: Well appearing, alert, in no acute distr ess, well-hydrated, well nourished. and Morbidly obese. Neck: Supple, no adenopathy; thyroid symmetric, normal size, no bruits. Lungs: lungs clear to auscultation. No wheezing, rhonchi, ra les. Heart: RRR without murmur, gallop, or rubs. No ectopy. Abdomen: Normal abdominal exam, Abdomen soft, non-tender. Frank wel sounds normal. No masses, organomegaly. Extremities: No deformities, edema Health Maintenance List HPV TESTING due on 10/25/2015 MAMMOGRAM due on 12/01/2018 INFLUENZA(1) due on 01/23/2019 ANNUAL PCP TEAM CHRONIC DISEASE VISIT due on 02/12/2019 PAP TESTING due on 09/23/2021 DIABETES SCREEN due on 02/04/2022 LIPID SCREEN due on 02/05/2024 DTAP,TDAP,TD(2 - Td) due on 08/07/2026 COLORECTAL CANCER SCREENING,SEE MODIFIER due on 10/01/2026 ONE PNEUMOVAX PRIOR TO AGE 65 Completed Data reviewed Component Latest Ref Rng AND Units 02/04/2019 Protein, Total 6.3 - 8.0 g/dL 6.8 Albumin 3.9 - 4.9 g/dL 4.2 Calcium 8.5 - 10.2 mg/dL 9.0 Bilirubin, Total 0.2 - 1.3 mg/dL 0.2 Alkaline Phosphatase 34 - 123 U/L 71 AST 13 - 35 U/L 22 Glucose 74 - 99 mg/dL 99 BUN 7 - 21 mg/dL 12 Creatinine 0.58 - 0.96 mg/dL 0.71 Sodium 136 - 144 mmol/L 138 Potassium 3.7 - 5.1 mmol/L 4.6 Chloride 97 - 105 mmol/L 103 CO2 22 - 30 mmol/L 24 Anion Gap 9 - 18 mmol/L 11 ALT 7 - 38 U/L 24 eGFR- >60 eGFR-All Other Races . >60 Cholesterol, Total <200 mg/dL 228 (H) Triglyceride <150 mg/dL 237 (H) HDL Cholesterol >39 mg/dL 25 (L) LDL Cholesterol <100 mg/dL 156 (H) Non HDL Cholesterol <130 mg/dL 203 (H) Fasting Time hrs 11 VLDL Cholesterol <30 mg/dL 47 (H) TC:HDL Ratio <5.10 9.12 (H) LDL:HDL Ratio <2.54 6.24 (H) ASSESSMENT/PLAN: 1. Chronic obstructive pulmonary disease, unspecified COPD t ype ([facility]) - ICD9: 496, ICD10: J44.9 (primary diagnosis) - Continue current inhalers, encouraged patient to stop smok ing. - UMECLIDINIUM 62.5 MCG/ACTUATION BLISTER POWDER FOR INHALAT ION 2. Bipolar affective disorder, remission status unspecified ([facility]) - ICD9: 296.80, ICD10: F31.9 - Continue following counseling center. 3. Gastroesophageal reflux disease without esophagitis - ICD 9: 530.81, ICD10: K21.9 - OMEPRAZOLE 20 MG CAPSULE,DELAYED RELEASE 4. Mixed hyperlipidemia - ICD9: 272.2, ICD10: E78.2 - poor control - Begin treatment with atorvastatin (Lipitor) 20 mg - Encouraged following a low fat, low cholesterol diet. - Discussed the benefits of regular aerobic exercise and bryan ght loss. - ATORVASTATIN 20 MG TABLET - LIPID PANEL BASIC - COMP METABOLIC PANEL 5. Need for vaccination - ICD9: V05.9, ICD10: Z23 - INFLUENZA VACCINE QUADRIVALENT AGE 3 YRS PLUS + IM 6. Smoker - ICD9: 305.1, ICD10: F17.200 - Cessation encouraged. - Physiologic and physical aspects of tobacco addiction as w ell as strategies for quitting were discussed. - Counseling was given focusing on the harmful effects of th is addiction especially given the patient's medical condition(s) which wi ll be worsened because of the chemicals in tobacco. - Counseling was given 3-4 minutes. - Recommended to called 1-800-QUIT NOW - She will filler picker [id number] NicoDerm patches, instru ctions given for dosing, length. RTO in 3 months, labs prior. Joseph Hernández APRN.EARLENE blake on 2019-02-07 CNOV Office Visit (FAMPWS) Normal 02-08-20 19 [facility] MATILDE DAMON ([id number]) 1965 [facility] Time Provider Department ([id number]) 02/07/19 2:00 PM JOSEPH HERNÁNDEZ (EARLENE) LILIA During your visit today, we recorded the following informati on about you: Pulse Respiration Blood pressure Weight 89/minute 18/minute 124/80 99.3 kg Joseph Hernández APRN.CNP 02/07/2019 3:08 PM Signed Chief Complaint Patient presents with: Recheck Imm/Inj: Flu Vaccine HPI Matilde Damon is a 53 year old female who presents here tod ay for Above Complaints. Patient presenting to the office for chronic medical issue follow up. Would like get the influenza vaccine. HYPERLIPIDEMIA: Patient is taking medications: No. Patient is watching diet: No. Patient denies myalgias: Yes Patient denies gi upset: Yes She is seeing [facility] next month for mammogram, pap. COPD: She does use her inhaler as prescribed. She states t hat she does have shortness of breath. She is a smoker. She has bi polar disease, follows at the counseling center. Has not tried patches. No wagner st pain. No fevers or chills. Past medical history, appointments, medications, allergies r eviewed. Previous Medical History PAST MEDICAL HISTORY Diagnosis Date - Carpal tunnel syndrome - Depression - Elevated blood pressure reading without diagnosis of hyper tension - Generalized anxiety disorder - GERD (gastroesophageal [...] 1987, 1992 - COLONOSCOP W/ OR W/O [facility] SPEC 09/30/2016 normal - 10 year followup - CORRECT BUNION,SIMPLE Bunion X-2 - EGD W/O OR W/BRUSH/WASH 05/16/15 EGD - LIGATE FALLOPIAN TUBE 08/16/03 Tubal ligation - OPEN RX NAVICULAR FX 05/12/2014 ORIF right wrist - PAST SURGICAL HISTORY OF right 5th digit arthroplasty, foot - REMOVAL GALLBLADDER 1994 open cholecystectomy Family History FAMILY HISTORY Problem Relation Age of Onset - Diabetes Mother - Hypertension Mother - Hypertension Father - Heart Failure Father - Hyperlipidemia Father - Cancer Maternal Aunt Uterine - Diabetes Paternal Aunt - Diabetes Paternal Uncle - Colon Cancer Maternal Grandmother in 70s Patient Allergies ALLERGIES No Known Allergies Current Medications Current Outpatient Medications on File Prior to Visit: busPIRone (BUSPAR) 10 mg tablet Take 1 tablet by mouth twice daily. omeprazole (PRILOSEC) 20 mg capsule Take 1 capsule by mouth once daily. umeclidinium (INCRUSE ELLIPTA) 62.5 mcg/actuation inhaler IN [place] 1 PUFF INSTRUCTED ONCE DAILY. mupirocin (BACTROBAN) 2 % ointment Apply 1 appli cation to affected area three times daily. Location: nose simvastatin (ZOCOR) 10 mg tablet TAKE 1 TABLET BY MOUTH AT B EDTIME ASPIRIN 81 MG TAB Take one(1) tablet daily. albuterol HFA (PROVENTIL HFA, VENTOLIN HFA) 90 m cg/actuation inhaler Inhale 1 Puff as instructed every 4 hours as needed for Wheezin g/Shortness of Breath. venlafaxine hcl(EFFEXOR XR 150 MG 24 HR CAP) Take one(1) tab let daily. No current facility-administered medications on file prior t o visit. Social History Social History Socioeconomic History Marital status: Spouse name: Not on file Number of children: 2 Years of education: Not on file Highest education level: Not on file Occupational History Occupation: Disabled-mental illness Social Needs Financial resource strain: Not on file Food insecurity: Worry: Not on file Inability: Not on file Transportation needs: Medical: Not on file Non-medical: Not on file Tobacco Use Smoking status: Current Every Day Smoker Packs/day: 1.00 Years: 30.00 Pack years: 30 Types: Cigarettes Smokeless tobacco: Never Used Tobacco comment: Father smoked in childhood home. Has live d with smokers as an adult. Substance and Sexual Activity Alcohol use: Yes Comment: Rarely Drug use: No Sexual activity: Yes Partners: Male control/protection: Tubal Ligation Lifestyle Physical activity: Days per week: Not on file Minutes per session: Not on file Stress: Not on file Relationships Social connections: Talks on phone: Not on file Gets together: Not on file Attends mandaen service: Not on file Active member of club or organization: Not on file Attends meetings of clubs or organizations: Not on file Relationship status: Not on file Intimate partner violence: Fear of current or ex partner: Not on file Emotionally abused: Not on file Physically abused: Not on file Forced sexual activity: Not on file Other Topics Concerns: Not on file Social History Narrative Not on file REVIEW OF SYSTEMS: as above ? Reviewed relevant PMHx, PSHx, Social Hx, current medicatio ns and allergies. EXAM: BP 124/80 (BP Site: Left Arm, BP Position: Sitting, BP Cuff Size: Regular Adult) Pulse 89 Resp 18 Wt 99.3 kg (219 lb) LMP (LMP Unknown) SpO2 93% BMI 33.30 kg/m? General Appearance: Well montez earing, alert, in no acute distress, well-hydrated, well nourished. and Morbidly obese. Neck: Supple, no adenopathy; thyroid symmetric, normal size, no bruits. Lungs: lungs clear to auscultation. No wheezing, rhonchi, ra les. Heart: RRR without murmur, gallop, or rubs. No ectopy. Abdomen: Normal abdominal exam, Abdomen soft, non-tender. Bowel sounds normal. No masses, organomegaly. Extremities: No deformities, edema Health Maintenance List HPV TESTING due on 10/25/2015 MAMMOGRAM due on 12/01/2018 INFLUENZA(1) due on 01/23/2019 ANNUAL PCP TEAM CHRONIC DISEASE VISIT due on 02/12/2019 PAP TESTING due on 09/23/2021 DIABETES SCREEN due on 02/04/2022 LIPID SCREEN due on 02/05/2024 DTAP,TDAP,TD(2 - Td) due on 08/07/2026 COLORECTAL CANCER SCREENING,SEE MODIFIER due on 10/01/2026 ONE PNEUMOVAX PRIOR TO AGE 65 Completed Data reviewed Component Latest Ref Rng AND Units 02/04/2019 Protein, Total 6.3 - 8.0 g/dL 6.8 Albumin 3.9 - 4.9 g/dL 4.2 Calcium 8.5 - 10.2 mg/dL 9.0 Bilirubin, Total 0.2 - 1.3 mg/dL 0.2 Alkaline Phosphatase 34 - 123 U/L 71 AST 13 - 35 U/L 22 Glucose 74 - 99 mg/dL 99 BUN 7 - 21 mg/dL 12 Creatinine 0.58 - 0.96 mg/dL 0.71 Sodium 136 - 144 mmol/L 138 Potassium 3.7 - 5.1 mmol/L 4.6 Chloride 97 - 105 mmol/L 103 CO2 22 - 30 mmol/L 24 Anion Gap 9 - 18 mmol/L 11 ALT 7 - 38 U/L 24 eGFR- >60 eGFR-All Other Races . >60 Cholesterol, Total <200 mg/dL 228 (H) Triglyceride <150 mg/dL 237 (H) HDL Cholesterol >39 mg/dL 25 (L) LDL Cholesterol <100 mg/dL 156 (H) Non HDL Cholesterol <130 mg/dL 203 (H) Fasting Time hrs 11 VLDL Cholesterol <30 mg/dL 47 (H) TC:HDL Ratio <5.10 9.12 (H) LDL:HDL Ratio <2.54 6.24 (H) ASSESSMENT/PLAN: 1. Chronic obstructive pulmonary disease, unspec ified COPD type (HCC) - ICD9: 496, ICD10: J44.9 (primary diagnosis) - Continue current inhalers, encouraged patient to stop smok ing. - UMECLIDINIUM 62.5 MCG/ACTUATION BLISTER POWDER FOR INHALAT ION 2. Bipolar affective disorder, remission status unspecified (HCC) - ICD9: 296.80, ICD10: F31.9 - Continue following counseling center. 3. Gastroesophageal reflux disease without esoph agitis - ICD9: 530.81, ICD10: K21.9 - OMEPRAZOLE 20 MG CAPSULE,DELAYED RELEASE 4. Mixed hyperlipidemia - ICD9: 272.2, ICD10: E78.2 - poor control - Begin treatment with atorvastatin (Lipitor) 20 mg - Encouraged following a low fat, low cholesterol diet. - Discussed the benefits of regular aerobic exercise and bryan ght loss. - ATORVASTATIN 20 MG TABLET - LIPID PANEL BASIC - COMP METABOLIC PANEL 5. Need for vaccination - ICD9: V05.9, ICD10: Z23 - INFLUENZA VACCINE QUADRIVALENT AGE 3 YRS PLUS + IM 6. Smoker - ICD9: 305.1, ICD10: F17.200 - Cessation encouraged. - Physiologic and physical aspects of tobacco ad diction as well as strategies for quitting were discussed. - Counseling was given focusing on the harmful effects of th is addiction especially given the patient's medical condition(s) which wi ll be worsened because of the chemicals in tobacco. - Counseling was given 3-4 minutes. - Recommended to called 1-800-QUIT NOW - She will filler picker [id number] NicoDerm patches, instructions given for dosing, length. RTO in 3 months, labs prior. RANDALL Mendoza APRN.CNP 02/07/2019 2:28 PM Addendum Please try over the counter nicotine pat ches. Start with 21 mg patch daily for 6 weeks, then go to 14 mg patch daily for 2 weeks and then 7 mg patch for 2 weeks and stop. Joseph Hernández APRN.CNP For diet, please focus on: - More lean meats like chicken, fish, turkey rather than red meats - Less carbs and when having carbs, more complex carbs such as beans, wheat or multigrain and brown rice - more vegetables - health fats such as olive oil, nuts, avocados For exercise: Please try and aim for a goa l of 30 min a day most days of the week with a goal of 150min/wk. Brisk walking is plenty, i f you can increase it later, then that is good, but if you are gabriel g from little or no exercise to this new routine, I do not want you to go too extreme. If yo u already exercise, I encourage you to try and do a little more than what you have been doing. HEALTHY EATING FOR A LOW FAT, LOW CHOLESTEROL DIET Choose Daily Go Easy Caution Meat Equivalents Lean cuts of meat with fat trimmed like: Beef: eye, tip or top of the round Poultry without skin Dried beans and peas Egg whites/egg substitutes Fish/Shellfish Low-fat/skim milk Cheeses or lunch meats with less than 3 grams of fat per oun ce Natural peanut butter Prime grades of meat Duck, goose Jules, sausage Lunch/deli meats Hot dogs Ribs, organ meats Whole milk cheeses Other nuts/cheeses Eggs Egg whites, cholesterol- free egg substitutes Egg yolks (twice a week) Dairy Products Fat-free milk, 1% low fat milk, low fat buttermilk Nonfat/low-fat yogurt Low-fat frozen yogurt Evaporated fat-free milk 2% low fat milk Sherbet/ice milk Light cream cheese Light sour cream Regular fat yogurt Part-skim milk or regular hard cheese Whole milk, cream Dubl-ylh-miys, most dairy creamers Real non-dairy whipped cream Cream cheese, sour cream Ice cream Custard style yogurt Whole milk cheeses Fruits and Vegetables Fresh, frozen, canned or dried fruits/vegetables Olives Avocadoes Fruits or vegetables prepared in butter or cream sauce Fried fruits and vegetables Coconut Grains Breads (especially whole wheat, pumpernickel, rye) Low fat crackers, rice cakes and matzo High fiber cereal - hot or cold Pasta/noodels (no egg yolks) Rice Bagels, Nauruan muffins Potatoes Baked goods (cake, muffins, pancakes, waffles, biscuits, cor nbread) Croissants, pastry, doughnuts, sweet rolls Granola Snack Crackers made without allowed ingredients Starches prepared with cream, butter or cheese sauces Egg noodles Fats and Oils Unsaturated vegetable oils: canola, olive, peanut, corn, s afflower, sesame, soybean, sunflower Margarine made with plant stanols Vegetable cooking spray Low fat salad dressing (made with unsaturated fats) Low fat mayonnaise Seeds Butter, lard, beef tallow, jules fat Shortening Palm, palm kernel and coconut oils Hydrogenated oils Regular mayonnaise or margarine Regular salad dressing Snacks (In very limited amount) Sherbet, sorbet, British ice, frozen yogurt, popsicles , marcos food cake, fig bars, gingersnaps, low-fat j anaid beans and hard candy, plain popcorn, pretzels, fruit juices, tea, coffee Fruit crisps and cobblers, homemade cakes, pies and cookies made with unsaturated oils Ice cream, frozen tofu, candy, chocolate, potato chips, butt er popcorn, milkshakes, frappes, floats, eggnog, store-bought pies, most store-bought frosted and pound cakes Referring Provider: JOAQUÍN ISRAEL [[id number]] Allergies As of Date: 02/07/2019 (No Known Allergies) Date Reviewed: 02/07/2019 Reviewed by: Anisa Escobedo - Fully Assessed Reason for Visit: Recheck [92] Imm/Inj [58] Cmt: Flu Vaccine Reason For Visit History Recorded Primary Visit Diagnosis:Trimmer Loader kirstin obstructive pulmonary disease, unspecified COPD type (HCC) [J44.9] Other Visit Diagnoses:Bipolar affective disorder, remission status unspecified (HCC) [F31.9] Gastroesophageal reflux disease without esophagitis [K21.9] Mixed hyperlipidemia [E78.2] Need for vaccination [Z23] Smoker [F17.200] Order(s):omeprazole (PRILOSEC) 20 mg capsuleTake 1 capsule b y mouth once daily.Disp: 30 capsuleRfl: 11 umeclidinium (INCRUSE ELLIPTA) 62.5 mcg/actuation inhalerINH MARIA ESTHER 1 PUFF INSTRUCTED ONCE DAILY.Disp: 1 EachRfl: 11 INFLUENZA VACCINE QUADRIVALENT AGE 3 YRS PLUS + IM [[id number] ] Order #: [id number] atorvastatin (LIPITOR) 20 mg tabletTake 1 tablet by mouth on ce daily.Disp: 30 tabletRfl: 3 LIPID PANEL BASIC [SQLIPB] Order #: [id number] FUTURE COMP METABOLIC PANEL [SQCMP] Order #: [id number] FUTURE Prescriptions as of 02/07/2019 Sig: OMEPRAZOLE 20 MG CAPSULE,VENECIA* Take 1 capsule by mouth once * UMECLIDINIUM 62.5 MCG/ACTUATI* INHALE 1 PUFF INSTRUCTED O * BUSPIRONE 10 MG TABLET Take 1 tablet by mouth twice * MUPIROCIN 2 % TOPICAL OINTMENT Apply 1 application to affect * ATORVASTATIN 20 MG TABLET Take 1 tablet by mouth once d* ALBUTEROL SULFATE HFA 90 MCG/* Inhale 1 Puff as instructed e * * EFFEXOR XR 150 MG CAPSULE,EXT* Take one(1) tablet daily. Problem List As Of Date 02/07/2019 Noted Resolved LUMBAGO [M54.5] INVALID FOR* COMPLIC SURGICAL CODER ORTHO DEVICE [T84.89XA] INVALID FOR* PAIN IN [...] INVALID FOR* Gastroesophageal reflux disease [K21.9] INVALID FOR*05/16/20 15 Centrilobular emphysema (HCC) [J43.2] INVALID FOR* Hyperlipidemia [E78.5] INVALID FOR* Gastroesophageal reflux disease without esophag*INVALID FOR* Other instructions from your clinician: Please try over the counter nicotine patches. Start with 21 mg patch daily for 6 weeks, then go to 14 mg patch daily for 2 weeks and th en 7 mg patch for 2 weeks and stop. Joseph Hernández APRN.LEAD OXIDE MILL TENDER For diet, please focus on: - More lean meats like chicken, fish, turkey rather than red meats - Less carbs and when having carbs, more complex carbs such as beans, wheat or multigrain and brown rice - more vegetables - health fats such as olive oil, nuts, avocados For exercise: Please try and aim for a goal of 30 min a day most days of t he week with a goal of 150min/wk. Brisk walking is plenty, if you can incre ase it later, then that is good, but if you are going from little or no ex ercise to this new routine, I do not want you to go too extreme. If you alr david exercise, I encourage you to try and do a little more than what you gomes ve been doing. HEALTHY EATING FOR A LOW FAT, LOW CHOLESTEROL DIET Choose Daily Go Easy Caution Meat Equivalents Lean cuts of meat with fat trimmed like: Beef: eye, tip or top of the round Poultry without skin Dried beans and peas Egg whites/egg substitutes Fish/Shellfish Low-fat/skim milk Cheeses or lunch meats with less than 3 grams of fat per oun ce Natural peanut butter Prime grades of meat Duck, goose Jules, sausage Lunch/deli meats Hot dogs Ribs, organ meats Whole milk cheeses Other nuts/cheeses Eggs Egg whites, cholesterol- free egg substitutes Egg yolks (twice a week) Dairy Products Fat-free milk, 1% low fat milk, low fat buttermilk Nonfat/low-fat yogurt Low-fat frozen yogurt Evaporated fat-free milk 2% low fat milk Sherbet/ice milk Light cream cheese Light sour cream Regular fat yogurt Part-skim milk or regular hard cheese Whole milk, cream Mtxh-hxu-ecgy, most dairy creamers Real non-dairy whipped cream Cream cheese, sour cream Ice cream Custard style yogurt Whole milk cheeses Fruits and Vegetables Fresh, frozen, canned or dried fruits/vegetables Olives Avocadoes Fruits or vegetables prepared in butter or cream sauce Fried fruits and vegetables Coconut Grains Breads (especially whole wheat, pumpernickel, rye) Low fat crackers, rice cakes and matzo High fiber cereal - hot or cold Pasta/noodels (no egg yolks) Rice Bagels, Nauruan muffins Potatoes Baked goods (cake, muffins, pancakes, waffles, biscuits, cor nbread) Croissants, pastry, doughnuts, sweet rolls Granola Snack Crackers made without allowed ingredients Starches prepared with cream, butter or cheese sauces Egg noodles Fats and Oils Unsaturated vegetable oils: canola, olive, peanut, corn, saf flower, sesame, soybean, sunflower Margarine made with plant stanols Vegetable cooking spray Low fat salad dressing (made with unsaturated fats) Low fat mayonnaise Seeds Butter, lard, beef tallow, jules fat Shortening Palm, palm kernel and coconut oils Hydrogenated oils Regular mayonnaise or margarine Regular salad dressing Snacks (In very limited amount) Sherbet, sorbet, British ice, frozen yogurt, popsicles, jm l food cake, fig bars, gingersnaps, low-fat jelly beans and hard candy, p gabriel popcorn, pretzels, fruit juices, tea, coffee Fruit crisps and cobblers, homemade cakes, pies and cookies made with unsaturated oils Ice cream, frozen tofu, candy, chocolate, potato chips, butt er popcorn, milkshakes, frappes, floats, eggnog, store-bought pies, most store-bought frosted and pound cakes Prescriptions ordered this encounter Disp Refills Start End OMEPRAZOLE 20 MG CAPSULE,DELAYED REL* 30 c* 11 02/07/2019 Route: ORAL Sig: Take 1 capsule by mouth once daily. UMECLIDINIUM 62.5 MCG/ACTUATION BLIS* 1 Ea* 11 02/07/2019 Sig: INHALE 1 PUFF INSTRUCTED ONCE DAILY. ATORVASTATIN 20 MG TABLET 30 t* 3 02/07/2019 Route: ORAL Sig: Take 1 tablet by mouth once daily. Medications Discontinued During This Encounter ASPIRIN 81 MG TAB 0 0 01/22/2010 02/07/2019 Class: OTC Route: ORAL Sig: Take one(1) tablet daily. Disc: Course of therapy completed simvastatin (ZOCOR) 10 mg tablet 28 t* 11 12/19/2016 9 Cmt: Maximum Refills Reached Sig: TAKE 1 TABLET BY MOUTH AT BEDTIME Disc: Discontinued by Patient omeprazole (PRILOSEC) 20 mg capsule 30 c* 11 02/12/20182018 Route: ORAL Sig: Take 1 capsule by mouth once daily. Disc: Reason for discontinue is not on file. umeclidinium (INCRUSE ELLIPTA) 62.5 * 1 Ea* 11 02/12/201801/23 Sig: INHALE 1 PUFF INSTRUCTED ONCE DAILY. Disc: Reason for discontinue is not on file. Disposition: Return in about 3 months (around 05/09/2019) fo r Follow up hyperlipidemia. . Follow-up and Disposition History Recorded Encounter Status:Closed by JOSEPH HERNÁNDEZ CNP on 02/07/19 lipid panel, basic on 2019-02-04 Cholesterol [Mass/Vol] 228 <200 mg/dL High 02-04-2 019 [facility] ([id number]) Comment: Result Comment: <200 mg/dL, Desirable 200-239 mg/dL, Borderline hi gh >239 mg/dL, High Performed By: #### LIPB, CMP #### [facility] [address] [place] [address] Cholesterol in HDL [Mass/Vol] 25 >39 mg/dL Low 02-04-2019 [facility] (05206) Comment: Result Comment: 40-59 mg/dL, Acceptable >59 mg/dL, High: Negative ri sk factor for coronary heart disease <40 mg/dL, Low: Positive ris k factor for coronary heart disease Performed By: #### LIPB, CMP #### [facility] [address] [place], [place] [address] Cholesterol in LDL 156 <100 mg/dL High 02-04-2019 [facility] [Mass/Vol] ([id number]) Comment: Result Comment: <100 mg/dL, Optimal 100-129 mg/dL, Near optimal/ above optimal 130-159 mg/dL, Borderline hi gh 160-189 mg/dL, High >189 mg/dL, Very high Secondary prevention optimal LDL Cholesterol levels are recommended to be < 70 mg/dL Performed By: #### LIPB, CMP #### [facility] [address] [place] [address] Fasting Time 11 hrs Normal 02-04-2019 [facility] (69504) Comment: Performed By: #### LIPB, CMP #### [facility] [address] [place] [id number] LDL:HDL Ratio 6.24 <2.54 High 02-04-2019 [facility] (06190) Comment: Result Comment: Reference: 1. National Cholesterol Educ ation Program ATP III Guideline At-A-Glance Quick Desk Reference: National Heart, Lung, and Blood [place]. National Institutes of Health. 2001: NIH Publication No. 01-3305. 2. An International Atherosc lerosis Society position paper: global recommendations for the management of dyslipidemia: executive summary, Atherosclerosis. 2014: 232(2):410-413. Performed By: #### LIPB, CMP #### [facility] [address] [place], [place] [address] Non HDL Cholesterol 203 <130 mg/dL High 02-04-2019 [facility] ([id number]) Comment: Result Comment: <130 mg/dL, Optimal 130-159 mg/dL, Near optimal/ above optimal 160-189 mg/dL, Borderline hi gh 190-219 mg/dL, High >219 mg/dL, Very high Secondary prevention optimal non HDL Cholesterol levels are recommended to be < 100 mg/dL Performed By: #### LIPB, CMP #### [place] [address] [place], [place] [address] TC:HDL Ratio 9.12 <5.10 High 02-04-2019 [facility] (79302) Comment: Performed By: #### LIPB, CMP #### [address] [address] Triglyceride [Mass/Vol] 237 <150 mg/dL High 2018 [facility] (75538) Comment: Result Comment: <150 mg/dL, Normal 150-199 mg/dL, Borderline hi gh 200-499 mg/dL, High >499 mg/dL, Very high Performed By: #### LIPB, CMP #### [address] [address] VLDL Cholesterol 47 <30 mg/dL High 02-04-2019 [place] ([address]879) Comment: Performed By: #### LIPB, CMP #### [address] [address] comp metabolic panel on 2019-02-04 Albumin [Mass/Vol] 4.2 3.9-4.9 g/dL Normal 02-04-2019 [facility] (29181) Comment: Performed By: #### LIPB, CMP #### [place] [address] [place], [place] [address] ALP [Catalytic activity/Vol] 71 34-123 U/L Normal 0 02-04-2019 [facility] (71234) Comment: Performed By: #### LIPB, CMP #### [facility] [address] [place], [place] [address] ALT [Catalytic activity/Vol] 24 7-38 U/L Normal 0 02-04-2019 [facility] (21748) Comment: Performed By: #### LIPB, CMP #### [facility] [address] [place], [place] [address] Anion gap [Moles/Vol] 11 9-18 mmol/L Normal 02-05-20 19 [facility] (88305) Comment: Performed By: #### LIPB, CMP #### [facility] [address] [place], [place] [address] AST [Catalytic activity/Vol] 22 13-35 U/L Normal 0 02-04-2019 [facility] (28249) Comment: Performed By: #### LIPB, CMP #### [facility] [address] [place], [place] [address] Bilirubin [Mass/Vol] 0.2 0.2-1.3 mg/dL Normal 9 [facility] (71235) Comment: Performed By: #### LIPB, CMP #### [facility] [address] [place], [place] [address] Calcium [Mass/Vol] 9.0 8.5-10.2 mg/dL Normal 02-04-2019 [facility] (16012) Comment: Performed By: #### LIPB, CMP #### [facility] [address] [place], [place] [address] Chloride [Moles/Vol] 103 97-105 mmol/L Normal 9 [facility] (94396) Comment: Performed By: #### LIPB, CMP #### [facility] [address] [place], [place] [address] CO2 [Moles/Vol] 24 22-30 mmol/L Normal 02-04-2019 [facility] (83530) Comment: Performed By: #### LIPB, CMP #### [facility] [address] [place], [place] [address] Creatinine [Mass/Vol] 0.71 0.58-0.96 mg/dL Normal 02-05-20 19 [facility] (32495) Comment: Performed By: #### LIPB, CMP #### [facility] [address] [place], [place] [address] eGFR- Amer. >60 Normal 02-04-2019 [facility] (55985) Comment: Performed By: #### LIPB, CMP #### [facility] [address] [place], [place] [address] GFR/1.73 sq M predicted >60 mL/min/{1.73_m2} Normal 02-04-2019 [facility] among non-blacks [facility] ([id number]) (S/P/Bld) [Vol rate/Area] Comment: Result Comment: eGFR (Estima tamia GFR) Units of measure: mL/min/1.73 meters squared eGFR is derived from the ree xpressed MDRD Study equation using the following parameters: serum creatinine, age, gender and race. The creatinine assay has been calibrated to be traceable to IDMS. An eGFR <60 mL/min/1.73m2 fo r >3 months is consistent with chronic kidney disease. Refer to KDOQI guidelines for clinical interpretation. In patients with unstable re nal function, e.g. those with acute kidney injury, the eGFR may not accurately reflect actual GFR. Performed By: #### LIPB, CMP #### [facility] [address] [place], [place] [address] Glucose [Mass/Vol] 99 74-99 mg/dL Normal 02-04-2019 [facility] (73127) Comment: Result Comment: The [place] Diabetes Association (ADA) provides guidance for cutoff values for fasting glucose and random glucose. The ADA defines fasting as no caloric intake for at least 8 hours. Fas ting plasma glucose results between 100 to 125 mg/dL indicate increased risk for diabetes (prediabetes). Fasting plasma glucose resul ts greater than or equal to 126 mg/dL meet the criteria for diagnosis of diabetes. In the absence of unequivocal hyperglycemia, results should be confirmed by repeat testing. In a patient with classic s ymptoms of hyperglycemia or hyperglycemic crisis, random plasma glucose results greater than or equal to 200 mg/dL meet the criteria for diagnosis of diabetes. Reference: Standards of [facility] Care in Diabetes 2016, [place] Diabetes Association. Diabetes Care. 2016.39(Suppl 1). Performed By: #### LIPB, CMP #### [facility] [address] [place] [address] Potassium [Moles/Vol] 4.6 3.7-5.1 mmol/L Normal 02-05-20 19 [facility] (46984) Comment: Performed By: #### LIPB, CMP #### [facility] [address] [place] [address] Protein [Mass/Vol] 6.8 6.3-8.0 g/dL Normal 02-04-2019 [facility] (82703) Comment: Performed By: #### LIPB, CMP #### [facility] [address] [place], [place] [address] Sodium [Moles/Vol] 138 136-144 mmol/L Normal 02-04-2019 [facility] (45068) Comment: Performed By: #### LIPB, CMP #### [facility] [address] [place] [address] Urea nitrogen [Mass/Vol] 12 7-21 mg/dL Normal 02-04 [facility] (16487) Comment: Performed By: #### LIPB, CMP #### [facility] [place] [address] progress on 2019-01 PROGRESS HNO ID: [id number] Normal 01-31-2019 [facility] Author: Aruna Masterson ([id number]) Service: ? 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 Thanks Patient identified by name and . Aruna Masterson MA progress on 2019-01 PROGRESS HNO ID: [id number] Normal 01-28-2019 [facility] Author: Aruna Masterson [place] ([id number]) Service: ? Author Type: Medical Physiologist Type: Progress Notes Filed: 02/01/2019 1:09 PM Note Text: [facility] SUPERVISOR DRYING AND WINDING OSMANNOTE Provider Action/FYI: I have attempted to contact this patient by phone to return their call, schedule an appointment, discuss lab results, etc. Left mess age to call back. Patient identified by name and . Aruna Masterson MA PROGRESS HNO ID: [id number] Normal 01-28-2019 [facility] Author: Aruna Masterson [place] ([id number]) Service: ? Author Type: Medical Physiologist Type: Progress Notes Filed: 02/01/2019 1:09 PM Note Text: PHMA CARE GAP REGISTRY DOCUMENTATION (OUTSIDE TEAMLET) Provider Action/FYI: Patient needs appointment, labs ordered, PSR Action/FYI: schedule ov ,mammograms and labs Patient identified by name and date of . Last BP/Labs: Blood Pressure: Last 3 Encounter BP Readings: Date: BP: 02/12/2018 118/78 12/01/2017 134/90 07/07/2017 142/90 Lipids: Cholesterol, Total (mg/dL) Date Value 11/28/2016 158 04/17/2014 126 HDL Cholesterol (mg/dL) Date Value 11/28/2016 31 04/17/2014 43 LDL Cholesterol (mg/dL) Date Value 11/28/2016 87 04/17/2014 63 Triglyceride (mg/dL) Date Value 11/28/2016 201 04/17/2014 99 HGB A1C: Lab Results Component Value Date HBA1C 6.3 06/20/2008 TSH: TSH (uU/mL) Date Value 04/17/2014 1.290 04/01/2004 0.955 ) ? Patient has the following care gap registry disease diagno sis:ACO ? Patient has the following open care gaps:ACO ? Last office visit: 02/12/2018 ? Future office visit: Follow up Aruna Masterson MA PROGRESS HNO ID: [id number] Normal 01-28-2019 [facility] Author: Roni Caceres (Rn) [place] ([id number]) Service: ? Author Type: Registered Nurse Type: Progress Notes Filed: 01/28/2019 1:59 PM Note Text: PRIMARY CARE COORDINATION CHART REVIEW Patient identified for Care Coordination from: ACO Last PCP office visit: 02/12/2018 Next OV: Visit date not found CHRONIC DX: PVD, HLD, COPD CARE GAPS: HPV TESTING due on 10/25/2015 MAMMOGRAM due on 12/01/2018 INFLUENZA(1) due on 01/23/2019 UTILIZATION WITHIN THE LAST 12 MONTHS: ? HOSPITAL: [facility] 06/05/18 Left Wrist Injury (Distal Radius Fx)Mechanical fall DOES THIS PATIENT HAVE AN ADVANCE DIRECTIVE? ? No PRIMARY CARE COORDINATION OUTREACH PLAN: ? PHMA Short term ? Please send Pt a Health Maintenance reminder letter/ jerardo t with Care Gap closure. Thank You ? Nicki Tamayo RN ? January 28, 2019 cnptoutreach on 201 01-31-06 CNPTOUTREACH Patient Outreach (FAMPWS) Normal 0 01-28-2019 [place] MATILDE DAMON ([id number]) 1965 [facility] Date Time Provider Department ([id number]) 01/28/19 RONI CACERES (JASON) FAMPWS During your visit today, we recorded the following informati on about you: Nicki Tamayo RN 01/28/2019 1:59 PM Signed PRIMARY CARE COORDINATION CHART REVIEW Patient identified for Care Coordination from: AC Last PCP office visit: 02/12/2018 Next OV: Visit date not found CHRONIC DX: PVD, HLD, COPD CARE GAPS: HPV TESTING due on 10/25/2015 MAMMOGRAM due on 12/01/2018 INFLUENZA(1) due on 01/23/2019 UTILIZATION WITHIN THE LAST 12 MONTHS: ? HOSPITAL: [facility] 06/05/18 Left Wrist In joshua (Distal Radius Fx)Mechanical fall DOES THIS PATIENT HAVE AN ADVANCE DIRECTIVE? ? No PRIMARY CARE COORDINATION OUTREACH PLAN: ? PHMA Short term ? Please send Pt a Health Maintenance reminder letter/ ass ist with Care Gap closure. Thank You ? Nicki Tamayo RN ? January 28, 2019 Allergies As of Date: 01/28/2019 (No Known Allergies) Date Reviewed: 02/12/2018 Reviewed by: Shanna Jeter Ma - Fully Assessed Reason for Visit: Copyright Clerk- Other [[id number]] Cmt: ACO Prescriptions as of 01/28/2019 Sig: BUSPIRONE 10 MG TABLET Take 1 tablet by mouth twice * OMEPRAZOLE 20 MG CAPSULE,VENECIA* Take 1 capsule by mouth once * UMECLIDINIUM 62.5 MCG/ACTUATI* INHALE 1 PUFF INSTRUCTED O * ALBUTEROL SULFATE HFA 90 MCG/* Inhale 1 Puff as instructed e * MUPIROCIN 2 % TOPICAL OINTMENT Apply 1 application to affect * SIMVASTATIN 10 MG TABLET TAKE 1 TABLET BY MOUTH AT BED* * ASPIRIN 81 MG TABLET Take one(1) tablet daily. * EFFEXOR XR 150 MG CAPSULE,EXT* Take one(1) tablet daily. Problem List As Of Date 01/28/2019 Noted Resolved LUMBAGO [M54.5] INVALID FOR* COMPLIC SURGICAL CODER ORTHO DEVICE [T84.89XA] INVALID FOR* PAIN IN [...] INVALID FOR* Gastroesophageal reflux disease [K21.9] INVALID FOR*05/16/20 15 Centrilobular emphysema (HCC) [J43.2] INVALID FOR* Hyperlipidemia [E78.5] INVALID FOR* Gastroesophageal reflux disease without esophag*INVALID FOR* Encounter Status:Closed by [facility] ([facility]) Normal 0 01-28-2019 [place] [facility] MATILDE DAMON ([id number]) 1965 [facility] Date Time Provider Department ([id number]) 01/28/19 ARUNA MASTERSON) FAMPWS During your visit today, we recorded the following informati on about you: Aruna Masterson MA 02/01/2019 1:09 PM Signed PHTN CARE GAP REGISTRY DOCUMENTATION (OUTSIDE TEAMLET) Provider Action/FYI: Patient needs appointment, labs ordered, PSR Action/FYI: schedule ov ,mammograms and labs Patient identified by name and date of . Last BP/Labs: Blood Pressure: Last 3 Encounter BP Readings: Date: BP: 02/12/2018 118/78 12/01/2017 134/90 07/07/2017 142/90 Lipids: Cholesterol, Total (mg/dL) Date Value 11/28/2016 158 04/17/2014 126 HDL Cholesterol (mg/dL) Date Value 11/28/2016 31 04/17/2014 43 LDL Cholesterol (mg/dL) Date Value 11/28/2016 87 04/17/2014 63 Triglyceride (mg/dL) Date Value 11/28/2016 201 04/17/2014 99 HGB A1C: Lab Results Component Value Date HBA1C 6.3 06/20/2008 TSH: TSH (uU/mL) Date Value 04/17/2014 1.290 04/01/2004 0.955 ) ? Patient has the following care gap registry disease diagno sis:ACO ? Patient has the following open care gaps:ACO ? Last office visit: 02/12/2018 ? Future office visit: Follow up EDIE Wick MA 02/01/2019 1:09 PM Signed [facility] SUPERVISOR [employer]YING [employer] WINDING SULEIMAN Provider Action/FYI: I have attempted to contact this patient by phone to return their call, schedule an appointment, discuss lab results, et c. Left message to call back. Patient identified by name and . EDIE Wick MA 02/01/2019 1:09 PM Signed [facility] SUPERVISOR [employer] SULEIMAN Provider Action/FYI: Please schedule mammogram, any day in the afternoon. Thanks Patient identified by name and . Aruna Masterson MA Allergies As of Date: 01/28/2019 (No Known Allergies) Date Reviewed: 02/12/2018 Reviewed by: Shanna Jeter Ma - Fully Assessed Reason for Visit: PHMA/Care Gap Outreach [[id number]] Cmt: ACO Prescriptions as of 01/28/2019 Sig: BUSPIRONE 10 MG TABLET Take 1 tablet by mouth twice * OMEPRAZOLE 20 MG CAPSULE,VENECIA* Take 1 capsule by mouth once * UMECLIDINIUM 62.5 MCG/ACTUATI* INHALE 1 PUFF INSTRUCTED O * ALBUTEROL SULFATE HFA 90 MCG/* Inhale 1 Puff as instructed e * MUPIROCIN 2 % TOPICAL OINTMENT Apply 1 application to affect * SIMVASTATIN 10 MG TABLET TAKE 1 TABLET BY MOUTH AT BED* * ASPIRIN 81 MG TABLET Take one(1) tablet daily. * EFFEXOR XR 150 MG CAPSULE,EXT* Take one(1) tablet daily. Problem List As Of Date 01/28/2019 Noted Resolved LUMBAGO [M54.5] INVALID FOR* COMPLIC SURGICAL CODER ORTHO DEVICE [T84.89XA] INVALID FOR* PAIN IN [...] INVALID FOR* Gastroesophageal reflux disease [K21.9] INVALID FOR*05/16/20 15 Centrilobular emphysema (HCC) [J43.2] INVALID FOR* Hyperlipidemia [E78.5] INVALID FOR* Gastroesophageal reflux disease without esophag*INVALID FOR* Encounter Status:Closed by SORAYA HA on 02/01/19 cr wrist complete 3 views left on 2018-08-12 CR Wrist Complete 3 Patient Name: MATILDE DAMON [facility] 08-12-2018 [facility] Views Left System ([id number]) Diagnostic Radiology Exam Date/Time 08/12/2018 11:10:00 EDT Exam CR Wrist Complete 3 Views Left Ordering Physician MD AGUSTÍN, BRIDGETTE Tao Accession Number [id number] CPT4 Codes 07627 () Reason For Exam fracture Report Left wrist CLINICAL INDICATION: Pain. Postoperative evaluation. COMPARISON: None TECHNIQUE: Three views of the left wrist FINDINGS: AP, lateral, and oblique views of the left wrist are provide d. There is volar plate and screw fixation of a comminuted, intra-articular di stal radius fracture. No evidence of hardware complication or failure. T here is subtle periosteal reaction of the fracture fragment margins suggest ing early healing. No comparison studies are available to evaluate fracture fra gment alignment. The distal radiocarpal joint is in relatively good anatomic alig nment. The distal radial ulnar joint is intact. No interval fracture or dislocation. Mild first CMC osteoarthrosis. Normal osseous mineralization. IMPRESSION: Volar plate and screw fixation of a comminuted, intra-articu lar distal radius fracture with subtle periosteal reaction of the fracture fra gment margins suggesting early healing. No evidence of hardware complicati on or failure. Report Dictated on Final Dictating Physician: MD LOPEZ JASON Signed Date and Time: 08/12/2018 11:13 am Signed by: MD LOPEZ JASON Transcribed Date and Time: 08/12/2018 11:22 hcg,urine qual on 2 HCG.beta subunit Negative Negative Normal 06-25-2018 [facility] ( test) Ql (U) ([id number]) Comment: Result Comment: is the most common reason for HCG in urine, although choriocarcinoma, hydatidifor m mole, and certain nontropho- blastic malignancies also re sult in detectable urinary HCG levels. Sensitivity = 20mIU/ mL. Performed By: #### HCGUR ### # [facility] [address] [place] [address] Encounters Date Type Reason Provider Location 01-18-2020 - Refill Gastroesophageal reflux Joaquín Bob [facility] 01-18-2020 disease without esophagitis Andree Comment: Refill Request Procedures Procedure Name Date Provider Location Mammography 02-22-2019 [facility] ([id number]) Colonoscopy 10-01-2016 [facility] ([id number]) Plan of Treatment Plan Description Date Location COLONOSCOPY COLONOSCOPY 10-01-2026 [facility] ([id number]) DTAP,TDAP,TD (2 - Td) DTAP,TDAP,TD (2 - Td) 08-07-2026 [facility] ([id number]) LIPID SCREEN LIPID SCREEN 11-08-2024 [facility] (85449) PAP TESTING PAP TESTING 02-23-2024 [facility] ([id number]) DIABETES SCREEN DIABETES SCREEN 11-28-2022 [facility] ([id number]) ANNUAL PCP TEAM CHRONIC ANNUAL PCP TEAM CHRONIC 11-28-2020 [facility] DISEASE VISIT DISEASE VISIT (15154) MAMMOGRAM MAMMOGRAM 02-23-2020 [facility] ([id number]) INFLUENZA (#1) INFLUENZA (#1) 2020 [facility] (07727) SHINGRIX VACCINE (1 of 2) SHINGRIX VACCINE (1 of 2) 2016 [facility] (44758) HPV TESTING HPV TESTING 10-25-2015 [facility] ([id number]) Immunizations Vaccine Notes Status Date Location Influenza Vaccine, influenza virus (completed) 03-14-2009 [facility] Split-Non Spec vaccine, unspecified (4419 5) formulation Influenza Vaccine, influenza virus (completed) 04-02-2006 [facility] Split-Non Spec vaccine, unspecified (4419 5) formulation Influenza Vaccine, influenza virus (completed) 04-01-2005 [facility] Split-Non Spec vaccine, unspecified (4419 5) formulation Influenza Seasonal influenza, injectable, (completed) 02-07-2019 [facility] Inj Quadrivalent Age quadrivalent, contains (46453) 3+ preservative Influenza Seasonal influenza, injectable, (completed) 02-12-2018 [facility] Inj Quadrivalent Age quadrivalent, contains (45033) 3+ preservative Influenza Seasonal influenza, injectable, (completed) 03-05-2015 [facility] Inj Quadrivalent Age quadrivalent, contains (24758) 3+ preservative Influenza Seasonal influenza, seasonal, (completed) 12-31-2015 [facility] Inj Age 3+ injectable (89642) Pneumovax pneumococcal (completed) 03-05-2015 [facility] polysaccharide vaccine, (441 95) 23 valent Tdap (Age 7+) tetanus toxoid, reduced (completed) 08-07-2016 [facility] diphtheria toxoid, and (4419 5) acellular pertussis vaccine, adsorbed Payers Payer Name Policy Number Location [facility] [employer] [employer] BL[facility] [id number] [facility] ([id number]) MEDICAID [place] [id number] [facility] (44 195) The following information is from the original human readable contentNo Payer Records FoundNo Payer Records FoundNo Payer Records Found Social History Type Social History Date Location Description Tobacco smoking status Current every day smoker 11-29-2019 [facility] (44390) History of tobacco use Cigarette Smoker [facility] (98792) Cigarettes smoked 11-29-2019 - [facility] current (pack per day) 11-29-2019 (04151) - Reported Tobacco use and Never used 11-29-2019 [facility] exposure (36478) Alcohol intake Current drinker of 11-29-2019 [place] [facility] alcohol (finding) (99888) Tobacco Comment Father smoked in 03-22-2015 [facility] c childhood home. Has ([address]) lived with smokers as an adult. Sex Assigned At Not on file [facility] (69689) The following information is from the original human readable contentNo Social History Records FoundNo Social History Records FoundNo Social History Records Found Medical Equipment Equipment Code (if Equipment Original Equipment Procedure Code ( if Dates provided) Text (if provided) Identifier (if provided) provided) Fma-Ey-L-Kind [id number] 09-19-2011 Implant - [id number] Wyy-Zx-T-Kind [id number]_[facility] 05-02-2014 Implant - [id number] Plate 58mm Ss [id number]_[facility] 05-02-2014 2.4mm Scr 7x3 H - [id number] Screw Bn 2.4mm [id number] 05-02-2014 14mm Lcp Ss - [id number] Screw Bn 2.4mm [id number]_[facility] 05-02-2014 18mm Lcp Ss - [id number] Screw Bn 2.4mm [id number]_[facility] 05-02-2014 20mm Lcp Ss - [id number] Screw Bn 2.7mm [id number]_[facility] 05-02-2014 14mm Lcp Ss - [id number] Bit Drl 110mm [id number]_[facility] 05-02-2014 1.8mm Qc D Mrk - [id number] Summary Purpose Family History No Family History Records FoundNo Family History Records Found Advance Directives No Advanced Directives Records Found Documents on File Type Date Recorded 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 This clinical summary was aggregated from multiple sources. Caution should be exercised in using it in the provision of clinical care. This summary normalizes information from multiple sources, and as a consequence, information in this document may materially changethe coding, format and clinical context of patient data. In addition, data may be omittedin some cases. CLINICAL DECISIONS SHOULD BE BASED ON THE PRIMARY CLINICAL RECORDS. [facility] provides no warranty or guarantee of the accuracy or completeness of information in this document. UNRECOGNIZED CONTENT PROVIDED BELOW FOR UNRECOGNIZED SECTION INFORMATION SOURCE DATE CREATED AUTHOR AUTHOR'S ORGANBRAYDENO N 10/17/2018 [facility] DATE CREATED AUTHOR AUTHOR'S ORGANIZATIO N 01/19/2020 [facility] UNRECOGNIZED CONTENT PROVIDED BELOW FOR UNRECOGNIZED SECTION Source Comments In the event this information is protected by the Federal Confidentiality of Alcohol and Drug Abuse Patient Records regulations: The Federal rules restrict any use of the information to criminally investigate or prosecute any alcohol or drug abuse patient.[facility] UNRECOGNIZED CONTENT PROVIDED BELOW FOR UNRECOGNIZED SECTION Reason for Visit Reason Onset Date Comments Refill Request 01/18/2020 UNRECOGNIZED CONTENT PROVIDED BELOW FOR UNRECOGNIZED SECTION Miscellaneous Notes Telephone Encounter - Marco A Poe ([place])RANDALL - 01/18/2020 12:20 PM EDT The following approved medication requests have been transmitted electronically. Pending Prescriptions Disp Refills OMEPRAZOLE 20 MG CAPSULE,DELAYED RELEASE 30 capsule 11 Sig: Take 1 capsule by mouth once daily. MELANI: No Marco A Poe DNP.CNP elephone Encounter - Leighann Felder (Rn), RN - 01/18/2020 11:11 AM EDT Patient has been identified by name and date of : Yes Pharmacy phones for refill(s): Pending Prescriptions Disp Refills OMEPRAZOLE 20 MG CAPSULE,DELAYED RELEASE 30 capsule 11 Sig: Take 1 capsule by mouth once daily. MELANI: No Date of last office visit in primary care: 11/29/19 Last 2 Encounter Wt Readings: Date: Wt: 11/29/2019 106.1 kg (234 lb) 05/13/2019 107 kg (236 lb) Previous labs/tests for medication: Not applicable Please advise. Thank you. Leighann Felder RN documented in this encounter
--- OUTSIDE RECORDS SUMMARY | 2020-03-06 14:00 | XMS RPT_ITS | CCD ---
:1965 External Reference #:[id number] Author Organization [facility] Care Team Providers Name Role Phone Joaquín Israel Primary Care Provider Medications Medication Name Sig Date Prescriber Location albuterol HFA albuterol HFA 09-01-2019 [facility] J[facility] (PROVENTIL HFA, (PROVENTIL HFA, Joseph ([facility]) Jareth ([phone] VENTOLIN HFA) 90 VENTOLIN HFA) 90 mcg/actuation mcg/actuation inhaler inhaler Indications: Chronic obstructive pulmonary disease, unspecified COPD type ([facility]) Inhale 1 Puff as instructed every 4 hours as needed for Wheezing/Shortness of Breath. 1 Inhaler 5 09/01/2019 Active Comment: Inhale 1 Puff as instructed every 4 hours as needed for Wheezing/Shortness of Breath. Aspirin aspirin, enteric coated 11-29-2019 [facility] Car rice [facility] (ASPIRIN, ENTERIC Jo ([facility]) Heidi ([phone]) COATED) 81 mg EC tablet Take 1 tablet by mouth once daily. 0 11/29/2019 Active Comment: Take 1 tablet by mouth once daily. atorvastatin atorvastatin (LIPITOR) 10-26-2019 Joaquín Israel [facility] 20 mg tablet Joaquín Israel ([id number]) Indications: Mixed hyperlipidemia Take 1 tablet by mouth once daily. 30 tablet 11 10/26/2019 Active Comment: Take 1 tablet by mouth once daily. busPIRone busPIRone (BUSPAR) 10 02-12-2018 Joaquín Israel [facility] mg tablet Indications: Joaquín Israel (07662) Bipolar affective disorder, remission status unspecified (HCC) Take 1 tablet by mouth twice daily. 0 02/12/2018 Active Comment: Take 1 tablet by mouth twice daily. Omeprazole omeprazole (PRILOSEC) 20 02-07-2019 - Lalit Ellis [facility] mg capsule Indications: 01-18-2020 Philip ([phone]) Gastroesophageal reflux disease without esophagitis Take 1 capsule by mouth once daily. 30 capsule 11 01/18/2020 Active Comment: Take 1 capsule by mouth once daily. tiotropium tiotropium (SPIRIVA 11-30-2019 Joaquín Israel [facility] RESPIMAT) 2.5 Joaquín Israel ([id number]) mcg/actuation inhaler Inhale 2 Puffs as instructed once daily. Inhale two puffs once daily. 1 Inhaler 5 11/30/2019 Active Comment: Inhale 2 Puffs as instructed once daily. Inhale two puffs once daily. venlafaxine venlafaxine hcl(EFFEXOR 03-14-2009 Deborarobbin Magana C [facility] XR 150 MG 24 HR CAP) Debora Magana ([phone]) Take one(1) tablet daily. 0 03/14/2009 Active Comment: Take one(1) tablet daily. Problems Active Problems Category Problem Name Status Date Location Acquired foot Acquired hallux valgus Active 07-02-2011 - [facility] deformities (62353) Chronic obstructive Centriacinar emphysema Active 04-26-2015 - [facility] pulmonary disease and (02487 ) bronchiectasis Disorders of lipid Hyperlipidemia Active 09-24-2016 - [facility] metabolism (96935) Esophageal disorders Gastroesophageal reflux Active - [facility] disease without (28451) esophagitis Mood disorders Bipolar disorder Active 04-26-2015 - [facility] (90954) Other nervous system Carpal tunnel syndrome Active 12-11-2006 - [facility] disorders (22339) Peripheral and visceral Peripheral vascular Active 05-15-2009 - [facility] atherosclerosis disease (81974) Residual codes; Tobacco user Active [facility] inic unclassified (68143) Thyroid disorders Non-toxic uninodular Active 05-28-2014 - [facility] goiter (83336) Past or Other Problems Category Problem Name Status Date Location Complication of device; Disorders of Completed 04-01-2005 - [facility] implant or graft musculoskeletal (78809) implants and repairs Fracture of upper limb Fracture at wrist Completed 05-11-2014 - [facility] and/or hand level (91636) Other bone disease and Exostosis Completed 07-02-2011 - [facility] musculoskeletal (08639) deformities Other connective tissue Pain in limb Completed 04-01-2005 - [facility] disease (67815) Other non-traumatic Shoulder joint pain Completed 02-12-2007 [facility] joint disorders (65091) Other skin disorders Folliculitis Completed 09-08-2013 - [facility] (89287) Other skin disorders Hidradenitis Completed 11-09-2007 - [facility] (12330) Spondylosis; Neck pain Completed 10-28-2004 - [facility] intervertebral disc (33290) disorders; other back problems Results Result Name Value Range Unit Interpretation Flag Date Location obsolete on 2019-12 OBSOLETE Refill (FAMPWS) Normal 01-18-2020 [facility] MATILDE DAMON ([id number]) 1965 [facility] Time Provider Department (05316) 01/18/20 JOAQUÍN ISRAEL FAMPWS During your visit [...] applicable Please advise. Thank you. JASON Mckay, KHURRAM.[employer] SUPERINTENDENT, CLAY THROWER.[employer] SUPERINTENDENT 01/18/2020 12:20 PM Signed The following approved medic ation requests have been transmitted electronically. Pending Prescriptions Disp Refills OMEPRAZOLE 20 MG CAPSULE,DELAYED RELEASE 30 capsule 11 Sig: Take 1 capsule by mouth once daily. MELANI: No Marco A Poe DNP.[employer] SUPERINTENDENT Allergies As of Date: 01/18/2020 (No Known [...] 01/18/2020 Noted Resolved LUMBAGO [M54.5] 10/28/2004 COMPLIC FINISHING ROOM OPERATOR ORTHO DEVICE [T84.89XA] 04/01/2005 PAIN IN LIMB [M79.609] 04/01/2005 CARPAL TUNNEL SYNDROME [G56.00] 12/11/2006 CERVICALGIA [M54.2] 02/12/2007 JOINT PAIN-SHLDER [M25.519] 02/12/2007 HIDRADENITIS [L73.2] 11/09/2007 Unspecified Peripheral Vascular Disease [I73.9] 05/15/2009 Exostosis of unspecified site [M89.8X9] 07/02/2011 Hallux valgus (acquired) [M20.10] 07/02/2011 Folliculitis [L73.9] 09/08/2013 Tobacco use disorder [F17.200] Right wrist fracture [S62.101A] 05/11/2014 Nontoxic uninodular goiter [E04.1] 05/28/2014 PVD (peripheral vascular disease) ([facility]) [I73.9] 04/26/2015 Chronic bronchitis (HCC) [J42] 04/26/2015 [...] Encounter Status:Closed by MARCO A POE DNP [facility] Telephone (FAMPWS) Normal 11-30-2019 [place] [facility] MATILDE DAMON ([id number]) 1965 [facility] Date Time Provider Department ([id number]) 11/30/19 JOAQUÍN ISRAEL [facility] During your visit today, we recorded the following informati on about you: Ramonita Acosta LPN 11/30/2019 5:15 PM Signed ----- Message from Jo ([facility]) Heidi sent at 11/30/2019 1 2:44 PM EDT ----- Can please let patient know that I received her labs. Her magnesium level is normal. The A1C (3 month average blood sugar) was 6.3 for an a verage glucose of 134, which is in the prediabetic range. The best evidence to prevent development transformatio n to overt diabetes is weight loss. The [place] Diabetic Association has now appro cara a [...] as instructed e * OMEPRAZOLE 20 MG CAPSULE,VEENCIA* Take 1 capsule by mouth once * BUSPIRONE 10 MG TABLET Take 1 tablet by mouth twice * * EFFEXOR XR 150 MG CAPSULE,EXT* Take one(1) tablet daily. Problem List As Of Date 11/30/2019 Noted Resolved LUMBAGO [M54.5] 10/28/2004 COMPLIC FINISHING ROOM OPERATOR ORTHO DEVICE [T84.89XA] 04/01/2005 PAIN IN LIMB [M79.609] 04/01/2005 CARPAL TUNNEL SYNDROME [G56.00] 12/11/2006 CERVICALGIA [M54.2] 02/12/2007 JOINT PAIN-SHLDER [M25.519] 02/12/2007 HIDRADENITIS [L73.2] 11/09/2007 Unspecified Peripheral Vascular Disease [I73.9] 05/15/2009 Exostosis of unspecified site [M89.8X9] 07/02/2011 Hallux valgus (acquired) [M20.10] 07/02/2011 Folliculitis [L73.9] 09/08/2013 Tobacco use disorder [F17.200] Right wrist fracture [S62.101A] 05/11/2014 Nontoxic uninodular goiter [E04.1] 05/28/2014 PVD (peripheral vascular disease) ([facility]) [I73.9] 04/26/2015 Chronic bronchitis (HCC) [J42] 04/26/2015 Bipolar disorder (HCC) [F31.9] 04/26/2015 Gastroesophageal reflux disease [K21.9] 05/16/2015 5 Centrilobular emphysema (HCC) [J43.2] 06/08/2015 Hyperlipidemia [E78.5] 09/24/2016 Gastroesophageal reflux disease without esophag*09/24/2016 Encounter Status:Closed by LEIGHANN ROSE LPN [facility]01/[facility] Normal 11-30-2019 [place] [facility] MATILDE DAMON ([id number]) 1965 [facility] Date Time Provider Department ([id number]) 11/30/19 JOSEPH HERNÁNDEZ ([facility]) [facility] During your visit today, we recorded [...] 11/30/2019 Noted Resolved LUMBAGO [M54.5] 10/28/2004 COMPLIC FINISHING ROOM OPERATOR ORTHO DEVICE [T84.89XA] 04/01/2005 PAIN IN LIMB [...] 12/01/19 progress on 2019-11 PROGRESS HNO ID: [id number] Normal 11-29-2019 [facility] Author: Jo Mcgee) Kareemrakel Wang ([id number]) Service: ? Author Type: Nurse Practitioner Type: [...] and mariela neumann voices understanding. Jo Gordon APRN.[employer] SUPERINTENDENT magnesium on 11-28 Magnesium [Mass/Vol] 2.0 1.7-2.3 mg/dL Normal 0 [facility] (81123) Comment: Performed By: #### MG1, HBA1 C ####[facility] [place], [place] [phone]- [phone] hemoglobin a1c on HbA1c (Bld) [Mass fraction] 134 mg/dL Normal [facility] (52545) Comment: Result Comment: eAG: (Estima tamia average glucose) is a calculated value from HgbA1c and is office machines sales representative of the average blood glucose level in the last 2-3 month period. Performed By: #### MG1, HBA1 C ####[facility] [address] [place], [place] [phone] HbA1c (Bld) [Mass fraction] 6.3 4.3-5.6 % High [facility] (45633) Comment: Result Comment: [place] Aiyana betes Association guidelines indicate that patients with HgbA1c in the range 5.7-6.4% are at increased risk for development of diabetes, and intervention by lifestyle modification may be beneficial. HgbA1c greater o r equal to 6.5% is considered diagnostic of diabetes. Performed By: #### MG1, HBA1 C ####[facility] [address] [place], [place] [phone] cnov on 2019-11-29 CNOV Office Visit (FAMPWS) Normal 11-29-[address] [place] [address] [facility] MATILDE DAMON ([id number]) 1965 [facility] Date Time Provider Department ([id number]) 11/29/19 3:20 PM JO GORDON ([facility]) FAMPWS During your visit today, [...] 1987, 1992 - COLONOSCOP W/ OR W/O [facility] SPEC 09/30/2016 normal - 10 year [...] (HCC) [J44.9] Order(s):MAGNESIUM BLD [SQMG1] Order #: [id number] FUTURE aspirin, enteric coated (ASPIRIN, ENTERIC COATED) [...] 11/29/2019 Noted Resolved LUMBAGO [M54.5] 10/28/2004 COMPLIC FINISHING ROOM OPERATOR ORTHO DEVICE [T84.89XA] 04/01/2005 PAIN IN LIMB [...] GORDON CNP on 11/29/19 cnpn on 2019-11-24 [facility] (FAMPWS) Normal 11-24-2019 [place] [facility] MATILDE DAMON ([id number]) 1965 [facility] Date Time Provider Department (03132) 11/24/19 JOAQUÍN ISRAEL During your visit today, we recorded the following informati on about you: Jim Acosta LPN 11/24/2019 8:50 AM Signed Natividad from [facility] calling to request eit her PA for Incruse inhaler or preferred rx which is Spiriva. Natividad did not have ref #, but phone # to call is [phone]. Please advise. iJm Tate LPN 11/29/2019 10:48 AM Signed Please [...] two puf fs once daily. Authorizing Provider: JOAQÍUN ISRAEL MA Allergies As of Date: 11/24/2019 (No Known Allergies) Date Reviewed: 05/13/2019 Reviewed by: Morenita Del Castillo Ma - Fully Assessed Reason for Visit: Insurance Authorization [[id number]] Cmt: Incruse Order(s):tiotropium (SPIRIVA RESPIMAT) 2 .5 [...] 11/24/2019 Noted Resolved LUMBAGO [M54.5] 10/28/2004 COMPLIC FINISHING ROOM OPERATOR ORTHO DEVICE [T84.89XA] 04/01/2005 PAIN IN LIMB [M79.609] 04/01/2005 CARPAL TUNNEL SYNDROME [G56.00] 12/11/2006 CERVICALGIA [M54.2] 02/12/2007 JOINT PAIN-SHLDER [M25.519] 02/12/2007 HIDRADENITIS [L73.2] 11/09/2007 Unspecified Peripheral Vascular Disease [I73.9] 05/15/2009 Exostosis of unspecified site [M89.8X9] 07/02/2011 Hallux valgus (acquired) [M20.10] 07/02/2011 Folliculitis [L73.9] 09/08/2013 Tobacco use disorder [F17.200] Right wrist fracture [S62.101A] 05/11/2014 Nontoxic uninodular goiter [E04.1] 05/28/2014 PVD (peripheral vascular disease) ([facility]) [I73.9] 04/26/2015 Chronic bronchitis (HCC) [J42] 04/26/2015 [...] JAIME MA on 11/30/19 earlenen on 2019-11-10 [facility] (FAMPWS) Normal 11-10-2019 [place] [facility] MATILDE DAMON ([id number]) 1965 [facility] Date Time Provider Department (93651) 11/10/19 JOSEPH HERNÁNDEZ ([facility]) FAMWS During your visit today, [...] Primary Visit Diagnosis:Elevated glucose [R73.09] Order(s):HGB A1C [MWWGK5W] Order #: [id number] FUTURE Prescriptions as of 11/10/2019 Sig: ATORVASTATIN [...] 11/10/2019 Noted Resolved LUMBAGO [M54.5] 10/28/2004 COMPLIC FINISHING ROOM OPERATOR ORTHO DEVICE [T84.89XA] 04/01/2005 PAIN IN LIMB [...] Encounter Status:Closed by SHANNA JETER MA on 11/11/19 lipid panel, basic on 2019-11-09 Cholesterol [Mass/Vol] 136 <200 mg/dL Normal 020 [facility] (85291) Comment: Result Comment: <200 mg/dL, Desirable 200-239 mg/dL, Borderline hi gh >239 mg/dL, High Performed By: #### CMP, LIPB ####[facility] [place], [place] [phone] Cholesterol in HDL [Mass/Vol] 28 >39 mg/dL Low 11-09-2019 [facility] (57729) Comment: Result Comment: 40-59 mg/dL, Acceptable >59 mg/dL, High: Negative ri sk factor for coronary heart disease <40 mg/dL, Low: Positive ris k factor for coronary heart disease Performed By: #### CMP, LIPB ####[facility] [address] [place], [place] [phone]- [phone] Cholesterol in LDL 65 <100 mg/dL Normal 11-09-2019 [facility] [Mass/Vol] [place] (94731) Comment: Result Comment: <100 mg/dL, Optimal 100-129 mg/dL, Near optimal/ above optimal 130-159 mg/dL, Borderline hi gh 160-189 mg/dL, High >189 mg/dL, Very high Secondary prevention optimal LDL Cholesterol levels are recommended to be < 70 mg/dL Performed By: #### CMP, LIPB ####[facility], [place] [phone] Fasting Time 9 hrs Normal 11-09-2019 [facility] (44895) Comment: Performed By: #### CMP, LIPB ####[place] [address] [address], [place] [phone]- [phone] LDL:HDL Ratio 2.32 <2.54 Normal 11-09-2019 [facility] (34342) Comment: Result Comment: Reference: 1. National Cholesterol Educ ation Program ATP III Guideline At-A-Glance Quick Desk Reference: National Heart, Lung, and Blood [place]. National Institutes of Health. 2001: NIH Publication No. 01-3305. 2. An International Atherosc lerosis Society position paper: global recommendations for the management of dyslipidemia: executive summary, Atherosclerosis. 2014: 232(2):410-413. Performed By: #### CMP, LIPB ####[place] [address] [address], [place] [phone] Non HDL Cholesterol 108 <130 mg/dL Normal 11-09-2019 [facility] (70040) Comment: Result Comment: <130 mg/dL, Optimal 130-159 mg/dL, Near optimal/ above optimal 160-189 mg/dL, Borderline hi gh 190-219 mg/dL, High >219 mg/dL, Very high Secondary prevention optimal non HDL Cholesterol levels are recommended to be < 100 mg/dL Performed By: #### CMP, LIPB ####[place] [address], [place] [phone]- [phone] TC:HDL Ratio 4.86 <5.10 Normal 11-09-2019 [facility] (13479) Comment: Performed By: #### CMP, LIPB ####[place] [address] [address], [place] [phone]- [phone] Triglyceride [Mass/Vol] 214 <150 mg/dL High 2019 [facility] (15736) Comment: Result Comment: <150 mg/dL, Normal 150-199 mg/dL, Borderline hi gh 200-499 mg/dL, High >499 mg/dL, Very high Performed By: #### CMP, LIPB ####[address] [place], [place] [phone]- [phone] VLDL Cholesterol 43 <30 mg/dL High 11-09-2019 [facility] (68422) Comment: Performed By: #### CMP, LIPB ####[address] [phone] comp metabolic panel on 2019-11-09 Albumin [Mass/Vol] 4.3 3.9-4.9 g/dL Normal 11-09-2019 [facility] (17363) Comment: Performed By: #### CMP, LIPB ####[address] [place], [place] [phone]- [phone] ALP [Catalytic activity/Vol] 79 34-123 U/L Normal 0 11-09-2019 [facility] (89697) Comment: Performed By: #### CMP, LIPB ####[address] [place], [place] [phone] ALT [Catalytic activity/Vol] 18 7-38 U/L Normal 0 11-09-2019 [facility] (71239) Comment: Performed By: #### CMP, LIPB ####[place] [address] [place], [place] [phone]- [phone] Anion gap [Moles/Vol] 11 9-18 mmol/L Normal 11-09-19 [facility] (94653) Comment: Performed By: #### CMP, LIPB ####[place] [address] [place], [place] [phone]- [phone] AST [Catalytic activity/Vol] 20 13-35 U/L Normal 0 11-09-2019 [facility] (39590) Comment: Performed By: #### CMP, LIPB ####[facility], [place] [phone]- [phone] Bilirubin [Mass/Vol] 0.2 0.2-1.3 mg/dL Normal 0 [facility] (93234) Comment: Performed By: #### CMP, LIPB ####[place] [address] [address] [place], [place] [phone]- [phone] Calcium [Mass/Vol] 8.9 8.5-10.2 mg/dL Normal 11-09-2019 [facility] (98717) Comment: Performed By: #### CMP, LIPB ####[place] [address] [address], [place] [phone]- [phone] Chloride [Moles/Vol] 102 97-105 mmol/L Normal 0 [facility] (25244) Comment: Performed By: #### CMP, LIPB ####[place] [address] [address], [place] [phone]- [phone] CO2 [Moles/Vol] 26 22-30 mmol/L Normal 11-09-2019 [facility] (45547) Comment: Performed By: #### CMP, LIPB ####[facility] [place], [place] [phone]- [phone] Creatinine [Mass/Vol] 0.83 0.58-0.96 mg/dL Normal 11-09-19 20 [facility] (29545) Comment: Performed By: #### CMP, LIPB ####[facility], [place] [phone]- [phone] eGFR- Amer. >60 Normal 11-09-2019 [facility] (34663) Comment: Performed By: #### CMP, LIPB ####[place] [address] [address] [place], [place] [phone]- [phone] GFR/1.73 sq M predicted >60 mL/min/{1.73_m2} Normal 11-09-2019 [facility] among non-blacks MDRD [place] (44054) (S/P/Bld) [Vol rate/Area] Comment: Result Comment: eGFR [...] actual GFR. Performed By: #### CMP LIPB ####[facility] [address] [place], [place] [phone]- [phone] Glucose [Mass/Vol] 113 74-99 mg/dL High 11-09-2019 [facility] (49025) Comment: Result Comment: The [place] Diabetes Association (ADA) provides guidance for cutoff [...] for diagnosis of diabetes. Reference: Standards of [facility] Care in Diabetes 2016, [place] Diabetes Association. Diabetes Care. 2016.39(Suppl 1). Performed By: #### CMP, LIPB ####[facility] [address] [place], [place] [phone] Potassium [Moles/Vol] 4.2 3.7-5.1 mmol/L Normal 11-09-19 [facility] (74062) Comment: Performed By: #### CMP, LIPB ####[facility] [address] [place], [place] [phone]- [phone] Protein [Mass/Vol] 7.0 6.3-8.0 g/dL Normal 11-09-2019 [facility] (82302) Comment: Performed By: #### CMP, LIPB ####[facility] [place], [place] [phone]- [phone] Sodium [Moles/Vol] 139 136-144 mmol/L Normal 11-09-2019 [facility] (90650) Comment: Performed By: #### CMP, LIPB ####[place] [address] [place], [place] [phone]- [phone] Urea nitrogen [Mass/Vol] 9 7-21 mg/dL Normal 11-08 [facility] (52728) Comment: Performed By: #### CMP, LIPB ####[facility] [place], [place] [phone]- [phone] obsolete on 2019-10 OBSOLETE Refill (FAMPWS) Normal 10-26-2019 [facility] MATILDE DAMON ([id number]) 1965 [facility] Date Time Provider Department (35327) 10/26/19 JOAQUÍN ISRAEL FAMPWS During your visit [...] 10/26/2019 Noted Resolved LUMBAGO [M54.5] 10/28/2004 COMPLIC FINISHING ROOM OPERATOR ORTHO DEVICE [T84.89XA] 04/01/2005 PAIN IN LIMB [...] JETER MA on 10/26/19 earlenen on 2019-10-18 [facility] (FAMPWS) Normal 10-18-2019 [place] MATILDE Nunes ([id number]) 1965 [place] Date Time Provider Department (53339) 10/18/19 JOAQUÍN ISRAEL During your visit today, [...] 10/18/2019 Noted Resolved LUMBAGO [M54.5] 10/28/2004 COMPLIC FINISHING ROOM OPERATOR ORTHO DEVICE [T84.89XA] 04/01/2005 PAIN IN LIMB [M79.609] 04/01/2005 CARPAL TUNNEL SYNDROME [G56.00] 12/11/2006 CERVICALGIA [M54.2] 02/12/2007 JOINT PAIN-SHLDER [M25.519] 02/12/2007 HIDRADENITIS [L73.2] 11/09/2007 Unspecified Peripheral Vascular Disease [I73.9] 05/15/2009 Exostosis of unspecified site [M89.8X9] 07/02/2011 Hallux valgus (acquired) [M20.10] 07/02/2011 Folliculitis [L73.9] 09/08/2013 Tobacco use disorder [F17.200] Right wrist fracture [S62.101A] 05/11/2014 Nontoxic uninodular goiter [E04.1] 05/28/2014 PVD (peripheral vascular disease) ([facility]) [I73.9] 04/26/2015 Chronic bronchitis (HCC) [J42] 04/26/2015 Bipolar disorder (HCC) [F31.9] 04/26/2015 Gastroesophageal reflux disease [K21.9] 05/16/2015 5 Centrilobular emphysema (HCC) [J43.2] 06/08/2015 Hyperlipidemia [E78.5] 09/24/2016 Gastroesophageal reflux disease without esophag*09/24/2016 Encounter Status:Closed by SPOTMARIUM WHITNEY on 10/20/19 obsolete on 2019-08 OBSOLETE Refill (FAMPWS) Normal 09-01-2019 [facility] MATILDE DAMON ([id number]) 1965 [facility] Time Provider Department (51780) 09/01/19 JOAQUÍN ISRAEL FAMPWS During your visit [...] Wheezing/Shortness of Breath. MELANI: No Joseph Hernández APRN.[employer] SUPERINTENDENT Allergies As of Date: 09/01/2019 (No Known [...] 09/01/2019 Noted Resolved LUMBAGO [M54.5] 10/28/2004 COMPLIC FINISHING ROOM OPERATOR ORTHO DEVICE [T84.89XA] 04/01/2005 PAIN IN LIMB [...] 09/01/19 progress on 2019-04 PROGRESS HNO ID: [id number] Normal 05-13-2019 [facility] Author: Joseph (Earlene) Jareth Wang ([id number]) Service: ? Author Type: Nurse Practitioner Type: [...] time. Following with the counseling center of [facility]. Doing well with Effexor and Buspar. Does [...] 1987, 1992 - COLONOSCOP W/ OR W/O [facility] SPEC 09/30/2016 normal - 10 year [...] 2019-05-13 CNOV Office Visit (FAMPWS) Normal 05-13-20 [place] MATILDE DAMON ([id number]) 1965 [facility] Date Time Provider Department (57236) 05/13/19 1:00 PM JOSEPH HERNÁNDEZ ([facility] visit today, we recorded the [...] Bipolar affective disorder, remission status unspecified ([facility]) - ICD9: 296.80, ICD10: F31.9 - Continue with following with counseling center and current medications. Get labs, RTO in 6 months, sooner if needed. RANDALL Mendoza APRN.CNP 05/13/2019 1:03 PM Signed Please get your labs completed when you can. Joseph Hernández APRN.CNP Referring Provider: JOSEPH HERNÁNDEZ ([facility]) [[id number]] Allergies As of Date: 05/13/2019 (No Known Allergies) Date Reviewed: 05/13/2019 Reviewed by: Morenita Del Castillo Ma - Fully Assessed Reason for Visit: Recheck [92] Primary Visit Diagnosis:Mixed hyperlipidemia [E78.2] Other Visit Diagnoses:Chronic obstructive pulmon rhea disease, unspecified COPD type (HCC) [J44.9] Dysuria [R30.0] Bipolar affective disorder, remission status unspecified ([facility]) [F31.9] PVD (peripheral vascular disease) ([facility]) [I73.9] Order(s):atorvastatin (LIPITOR) 20 mg tabletTake 1 tablet by mouth once daily.Disp: 30 tabletRfl: 3 UA DIP, URINE (POC) [4047940] Order #: [id number]. #:[id number] Prescriptions as of 05/13/2019 Sig: ATORVASTATIN 20 [...] 05/13/2019 Noted Resolved LUMBAGO [M54.5] 10/28/2004 COMPLIC FINISHING ROOM OPERATOR ORTHO DEVICE [T84.89XA] 04/01/2005 PAIN IN LIMB [...] 05/13/19 progress on 2019-03 PROGRESS HNO ID: [id number] Normal 04-23-2019 [facility] Author: Berna (Earlene) [facility] ([id number]) Service: ? Author Type: Nurse Practitioner Type: [...] for fur ther evaluation. 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 Potential red flag symptoms discussed with the patient. Reviewed appro priate action plan to take if red flag symptoms occur. Patient agreeable t o treatment plan. Berna Manuel APRN.CNP cnvazquez on 2019-04-23 CNOV Office Visit (UCWSTR) Normal 04-23-[address] [place] [address] [facility] MATILDE DAMON ([id number]) 1965 [facility] Date Time Provider Department ([id number]) 04/23/19 10:45 AM BERNA MANUEL (EARLENE) WSTR [...] 1987, 1992 - COLONOSCOP W/ OR W/O [facility] SPEC 09/30/2016 normal - 10 year [...] f or further evaluation. 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 Potential red flag symptoms discussed with the patient. Review ed appropriate action plan to take if red flag symptoms occur. Patient agreeable to treatm ent plan. Berna Manuel APRN.[employer] SUPERINTENDENT Referring Provider: SELF [[id number]] Allergies As of [...] 04/23/2019 Noted Resolved LUMBAGO [M54.5] 10/28/2004 COMPLIC FINISHING ROOM OPERATOR ORTHO DEVICE [T84.89XA] 04/01/2005 PAIN IN LIMB [...] (FAMPWS) Normal 03-09-2019 Sina raymond MATILDE Nunes ([id number]) 1965 [facility] Date Time Provider Department ([id number]) 03/09/19 JOAQUÍN ISRAEL FAMPWS During your visit today, we recorded the following informati on about you: Marcela Dempsey RN 03/09/2019 3:01 PM Signed [facility] faxed papers requesting refills as follows: [...] Wheezing/Shortness of Breath. MELANI: No Authorizing Provider: JOAQUNÍ ISRAEL Ma Allergies As of Date: 03/09/2019 [...] Noted Resolved LUMBAGO [M54.5] INVALID FOR* COMPLIC FINISHING ROOM OPERATOR ORTHO DEVICE [T84.89XA] INVALID FOR* PAIN IN [...] 03/09/19 progress on 2019-02 PROGRESS HNO ID: [id number] Normal 02-22-2019 [facility] Author: Lesa Wang ([id number]) Service: ? Author Type: Physician Type: Progress [...] 1987, 1992 - COLONOSCOP W/ OR W/O [facility] SPEC 09/30/2016 normal - 10 year [...] Lesa Del Castillo MD PROGRESS HNO ID: [id number] Normal 02-22-2019 [facility] Author: Debbie Lara [place] ([id number]) Service: ? Author Type: ? Type: Progress [...] * * *Final Report* * * Normal [facility] DATE OF EXAM: Feb 22 2019 1:51PM [place] ([id number]) WOW 0581 - [facility] SCREENING / PROCEDURE REASON: Encounter for screening mammogram for veda gnant neoplasm of breast * * * * Physician Interpretation * * * * RESULT: #[id number] - MARIPOSA SCREENING BILATERAL DIGITAL SCREENING MAMMOGRAM [...] exams dated: 12/01/2017 mammogram, 2016 mammogram - [facility], 05/11/2014 mammog ellen - [facility], 07/29/2013 mammogram, and 06/22/2012 mammogra m - [facility]. There are scattered fibroglandular el ements in both breasts. No significant masses, calcifications, or other findings are seen in either breast. There has been no significant interval change. IMPRESSION: NEGATIVE There is no mammographic evidence of malignancy. A 1 year sc reening mammogram is recommended. Quinton Small M.D. ssd/penrad:02/22/2019 16:29:44 Extended Insurance Clerk(s): Dolly Peñaloza, RT(R)(M), [facility] letter sent: Normal over 40 Mammogram [...] Medicine, and Medical/Surgical Oncology, the Tia bob [facility] has carefully reviewed the data and reached [...] providers when to sto p screening mammograms. Batch Plant Supervisor: Tab Transcribe Date/Time: Feb 22 2019 1:34P Dictated by: QUINTON SMALL MD This examination was interpreted and the report reviewed and electronically signed by: QUINTON SMALL MD on Feb 22 2019 4:29PM EST [id number] cytology on 2019-02 CYTOLOGY Specimen originated from [facility] Normal 02-22-2019 [place] Specimen #: [id number] Clinic Submitting Physician: LESA DEL CASTILLO MD [place] SPECIMEN SUBMITTED ( [id number]) A: CERVICAL, SCREENING, FLUID FINAL DIAGNOSIS A. [...] STAINS A: CERVICAL, SCREENING, FLUID THIN PREP BENEFITS CONSULTING ANALYST Conor Wetzel M.D., Hydropulper Operator Date of Report: 02/25/2019 Date of Procedure: 02/22/2019 Date of Receipt: 02/24/2019 Submitted by: LESA DEL CASTILLO MD Location: [place] Diagnostic interpretation performed at [facility], [address] [place] [id number]. CLIA Number: [id number] The Pap Smear is a screening test for cervical cancer. False negative results occur with all screening tests, emphasizing the need for rescreening at recommended intervals, and clinical correlati on. cnov on 2019-02-22 CNOV Office Visit (WOOB) Normal 02-22-2019 [place] [facility] MATILDE DAMON ([id number]) 1965 [facility] Date Time Provider Department ([id number]) 02/22/19 2:00 PM LESA DEL CASTILLO During [...] one year or sooner as needed MD Fidle Chavez Pss 02/25/2019 3:07 PM Signed Pap [...] malignant neoplasm of cervix [Z12.4] Order(s):MARIPOSA SCREENING [7163422] Order #: [id number] FUTURE PAP FLUID CERVICAL SCREENING [5910924] Order #: [id number] . #:[id number] Prescriptions as of 02/22/2019 Sig: OMEPRAZOLE 20 [...] Noted Resolved LUMBAGO [M54.5] INVALID FOR* COMPLIC FINISHING ROOM OPERATOR ORTHO DEVICE [T84.89XA] INVALID FOR* PAIN IN [...] 1 year (around 02/23/2020) for R outine BENEFITS CONSULTING ANALYST exam. Follow-up and Disposition History Recorded Letter Text Letter Text Encounter Status:Closed by LESA DEL CASTILLO MD on 02/22/19 cnco on 2019-02-22 CNCO HNO ID: [id number] Normal 02-22-2019 [facility] Author: Mammography Coordinator ([id number]) Service: ? Author Type: Physician Type: Letter Filed: 02/23/2019 11:34 PM Note Text: February 22, 2019 PID: [id number] Matilde Damon [address] [place] [address] Dear Ms. Damon, We are pleased to [...] report will be kept on file at [facility] as part of your permanent medical record and are available f or your continuing care. Thank you for allowing us to help in meeting your health car e needs. Sincerely, Dr. Small Interpreting Radiologist [facility] (Normal over 40) progress on 2019-01 PROGRESS HNO ID: [id number] Normal 02-07-2019 [facility] Author: Joseph Mcgee) Jareth Wang ([id number]) Service: ? Author Type: Nurse Practitioner Type: [...] 1987, 1992 - COLONOSCOP W/ OR W/O [facility] SPEC 09/30/2016 normal - 10 year [...] file Gets together: Not on file Attends presybeterian service: Not on file Active member of [...] pulmonary disease, unspecified COPD t ype ([facility]) - ICD9: 496, ICD10: J44.9 (primary diagnosis) - Continue current inhalers, encouraged patient to stop smok ing. - UMECLIDINIUM 62.5 MCG/ACTUATION BLISTER POWDER FOR INHALAT ION 2. Bipolar affective disorder, remission status unspecified ([facility]) - ICD9: 296.80, ICD10: F31.9 - Continue [...] to called 1-800-QUIT NOW - She will burr picker nrmg-lsu-qfufhaw NicoDerm patches, instru ctions given for dosing, length. RTO in 3 months, labs prior. Joseph Hernández APRN.EARLENE blake on 2019-02-07 CNOV Office Visit (FAMPWS) Normal 02-08-20 19 [place] [facility] MATILDE DAMON ([id number]) 1965 [facility] Time Provider Department ([id number]) 02/07/19 2:00 PM JOSEPH HERNÁNDEZ (EARLENE) LILIA [...] 1987, 1992 - COLONOSCOP W/ OR W/O [facility] SPEC 09/30/2016 normal - 10 year [...] file Gets together: Not on file Attends presybeterian service: Not on file Active member of [...] to called 1-800-QUIT NOW - She will burr picker yemu-aus-zyldegs NicoDerm patches, instructions given for dosing, length. [...] or regular hard cheese Whole milk, cream Hsdy-fhs-nozk, most dairy creamers Real non-dairy whipped cream [...] cold Pasta/noodels (no egg yolks) Rice Bagels, Omani muffins Potatoes Baked goods (cake, muffins, pancakes, [...] Snacks (In very limited amount) Sherbet, sorbet, Mozambican ice, frozen yogurt, popsicles , marcos food [...] and pound cakes Referring Provider: JOAQUÍN ISRAEL [[id number]] Allergies As of Date: 02/07/2019 (No Known Allergies) Date Reviewed: 02/07/2019 Reviewed by: Anisa Escobedo - Fully Assessed Reason for Visit: Recheck [92] Imm/Inj [58] Cmt: Flu Vaccine Reason For Visit History Recorded 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 Joseph Hernández APRN.[employer] SUPERINTENDENT For diet, please focus on: - More [...] or regular hard cheese Whole milk, cream Pcll-lke-jrwv, most dairy creamers Real non-dairy whipped cream [...] cold Pasta/noodels (no egg yolks) Rice Bagels, Omani muffins Potatoes Baked goods (cake, muffins, pancakes, [...] Snacks (In very limited amount) Sherbet, sorbet, Mozambican ice, frozen yogurt, popsicles, jm l food [...] [Mass/Vol] 228 <200 mg/dL High 02-04-2 019 [facility] (48667) Comment: Result Comment: <200 mg/dL, Desirable 200-239 mg/dL, Borderline hi gh >239 mg/dL, High Performed By: #### LIPB, CMP #### [facility] [place] [address] [place] [address] Cholesterol in HDL [Mass/Vol] 25 >39 mg/dL Low 02-04-2019 [facility] (60947) Comment: Result Comment: 40-59 mg/dL, Acceptable >59 mg/dL, High: Negative ri sk factor for coronary heart disease <40 mg/dL, Low: Positive ris k factor for coronary heart disease Performed By: #### LIPB, CMP #### [facility] [address] [place], [place] [address] Cholesterol in LDL 156 <100 mg/dL High 02-04-2019 [facility] [Mass/Vol] (07596) Comment: Result Comment: <100 mg/dL, Optimal 100-129 mg/dL, Near optimal/ above optimal 130-159 mg/dL, Borderline hi gh 160-189 mg/dL, High >189 mg/dL, Very high Secondary prevention optimal LDL Cholesterol levels are recommended to be < 70 mg/dL Performed By: #### LIPB, CMP #### [facility] [address] [place] [address] Fasting Time 11 hrs Normal 02-04-2019 [facility] (71427) Comment: Performed By: #### LIPB, CMP #### [facility] [address] [place] [id number] LDL:HDL Ratio 6.24 <2.54 High 02-04-2019 [facility] (97518) Comment: Result Comment: Reference: 1. National Cholesterol Educ ation Program ATP III Guideline At-A-Glance Quick Desk Reference: National Heart, Lung, and Blood [place]. National Institutes of Health. 2001: NIH Publication No. 01-3305. 2. An International Atherosc lerosis Society position paper: global recommendations for the management of dyslipidemia: executive summary, Atherosclerosis. 2014: 232(2):410-413. Performed By: #### LIPB, CMP #### [facility] [address] [place], [place] [address] Non HDL Cholesterol 203 <130 mg/dL High 02-04-2019 [facility] (65634) Comment: Result Comment: <130 mg/dL, Optimal 130-159 mg/dL, Near optimal/ above optimal 160-189 mg/dL, Borderline hi gh 190-219 mg/dL, High >219 mg/dL, Very high Secondary prevention optimal non HDL Cholesterol levels are recommended to be < 100 mg/dL Performed By: #### LIPB, CMP #### [place] [address] [place], [place] [address] TC:HDL Ratio 9.12 <5.10 High 02-04-2019 [facility] (21875) Comment: Performed By: #### LIPB, CMP #### [address] [address] Triglyceride [Mass/Vol] 237 <150 mg/dL High 2018 [facility] (55725) Comment: Result Comment: <150 mg/dL, Normal 150-199 mg/dL, Borderline hi gh 200-499 mg/dL, High >499 mg/dL, Very high Performed By: #### LIPB, CMP #### [address] [address] VLDL Cholesterol 47 <30 mg/dL High 02-04-2019 [facility] (47635) Comment: Performed By: #### LIPB, CMP #### [address] [address] comp metabolic panel on 2019-02-04 Albumin [Mass/Vol] 4.2 3.9-4.9 g/dL Normal 02-04-2019 [facility] (85536) Comment: Performed By: #### LIPB, CMP #### [place] [address] [place], [place] [address] ALP [Catalytic activity/Vol] 71 34-123 U/L Normal 0 02-04-2019 [facility] (71931) Comment: Performed By: #### LIPB, CMP #### [facility] [address] [place], [place] [address] ALT [Catalytic activity/Vol] 24 7-38 U/L Normal 0 02-04-2019 [facility] (18084) Comment: Performed By: #### LIPB, CMP #### [facility] [address] [place], [place] [address] Anion gap [Moles/Vol] 11 9-18 mmol/L Normal 02-05-20 19 [facility] (01487) Comment: Performed By: #### LIPB, CMP #### [facility] [address] [place], [place] [address] AST [Catalytic activity/Vol] 22 13-35 U/L Normal 0 02-04-2019 [facility] (19107) Comment: Performed By: #### LIPB, CMP #### [facility] [address] [place], [place] [address] Bilirubin [Mass/Vol] 0.2 0.2-1.3 mg/dL Normal 9 [facility] (73820) Comment: Performed By: #### LIPB, CMP #### [facility] [address] [place], [place] [address] Calcium [Mass/Vol] 9.0 8.5-10.2 mg/dL Normal 02-04-2019 [facility] (20835) Comment: Performed By: #### LIPB, CMP #### [facility] [address] [place], [place] [address] Chloride [Moles/Vol] 103 97-105 mmol/L Normal 9 [facility] (33332) Comment: Performed By: #### LIPB, CMP #### [facility] [address] [place], [place] [address] CO2 [Moles/Vol] 24 22-30 mmol/L Normal 02-04-2019 [facility] (18373) Comment: Performed By: #### LIPB, CMP #### [facility] [address] [place], [place] [address] Creatinine [Mass/Vol] 0.71 0.58-0.96 mg/dL Normal 02-05-20 19 [facility] (17836) Comment: Performed By: #### LIPB, CMP #### [facility] [address] [place], [place] [address] eGFR- Amer. >60 Normal 02-04-2019 [facility] (49193) Comment: Performed By: #### LIPB, CMP #### [facility] [address] [place], [place] [address] GFR/1.73 sq M predicted >60 mL/min/{1.73_m2} Normal 02-04-2019 [facility] among non-blacks [facility] (61315) (S/P/Bld) [Vol rate/Area] Comment: Result Comment: eGFR [...] GFR. Performed By: #### LIPB, CMP #### [facility] [address] [place], [place] [address] Glucose [Mass/Vol] 99 74-99 mg/dL Normal 02-04-2019 [facility] (00022) Comment: Result Comment: The [place] Diabetes Association (ADA) provides guidance for cutoff [...] for diagnosis of diabetes. Reference: Standards of [facility] Care in Diabetes 2016, [place] Diabetes Association. Diabetes Care. 2016.39(Suppl 1). Performed By: #### LIPB, CMP #### [facility] [address] [place] [address] Potassium [Moles/Vol] 4.6 3.7-5.1 mmol/L Normal 02-05-20 19 [facility] (67177) Comment: Performed By: #### LIPB, CMP #### [facility] [address] [place] [address] Protein [Mass/Vol] 6.8 6.3-8.0 g/dL Normal 02-04-2019 [facility] (45611) Comment: Performed By: #### LIPB, CMP #### [facility] [address] [place], [place] [address] Sodium [Moles/Vol] 138 136-144 mmol/L Normal 02-04-2019 [facility] (03320) Comment: Performed By: #### LIPB, CMP #### [facility] [address] [place] [address] Urea nitrogen [Mass/Vol] 12 7-21 mg/dL Normal 02-04 [facility] (10194) Comment: Performed By: #### LIPB, CMP #### [facility] [place] [address] progress on 2019-01 PROGRESS HNO ID: [id number] Normal 01-31-2019 [facility] Author: Aruna Masterson ([id number]) Service: ? Author Type: Mainframe Architect Type: Progress Notes Filed: 02/01/2019 1:09 PM Note Text: [facility] CAM SPECIALIST OSMANNOTE Provider Action/FYI: Please schedule mammogram, any day in the afternoon. Thanks Patient identified by name and . Aruna Masterson MA progress on 2019-01 PROGRESS HNO ID: [id number] Normal 01-28-2019 [facility] Author: Aruna Masterson [place] ([id number]) Service: ? Author Type: Mainframe Architect Type: Progress Notes Filed: 02/01/2019 1:09 PM Note Text: [facility] CAM SPECIALIST OSMANNOTE Provider Action/FYI: I have attempted to contact this patient by phone to return their call, schedule an appointment, discuss lab results, etc. Left mess age to call back. Patient identified by name and . Aruna Masterson MA PROGRESS HNO ID: [id number] Normal 01-28-2019 [facility] Author: Aruna Masterson [place] ([id number]) Service: ? Author Type: Mainframe Architect Type: Progress Notes Filed: 02/01/2019 1:09 PM [...] up Aruna Masterson MA PROGRESS HNO ID: [id number] Normal 01-28-2019 [facility] Author: Roni Caceres (Rn) [place] (12573) Service: ? Author Type: Registered Nurse Type: [...] WITHIN THE LAST 12 MONTHS: ? HOSPITAL: [facility] ED 06/05/18 Left Wrist Injury (Distal [...] CNPTOUTREACH Patient Outreach (FAMPWS) Normal 0 01-28-2019 [place] [facility] MATILDE DAMON ([id number]) 1965 [facility] Date Time Provider Department ([id number]) 01/28/19 RONI CACERES (JASON) FAMPWS During your [...] WITHIN THE LAST 12 MONTHS: ? 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] Cmt: ACO Prescriptions as of 01/28/2019 Sig: [...] Noted Resolved LUMBAGO [M54.5] INVALID FOR* COMPLIC FINISHING ROOM OPERATOR ORTHO DEVICE [T84.89XA] INVALID FOR* PAIN IN [...] Encounter Status:Closed by NICKI TAMAYO on [facility]28/[facility] (FAMPWS) Normal 0 01-28-2019 [place] [facility] MATILDE DAMON ([id number]) 1965 [facility] Date Time Provider Department (40455) 01/28/19 ARUNA MASTERSON) FAMPWS During your visit today, we recorded the following informati on about you: Aruna Masterson MA 02/01/2019 1:09 PM Signed [facility] REGISTRY DOCUMENTATION (OUTSIDE TEAMLET) Provider [...] EDIE Wick MA 02/01/2019 1:09 PM Signed [facility] CAM SPECIALIST SULEIMAN Provider Action/FYI: I have attempted to contact this patient by phone to return their call, schedule an appointment, discuss lab results, et c. Left message to call back. Patient identified by name and . EDIE Wick MA 02/01/2019 1:09 PM Signed [facility] CAM SPECIALIST SULEIMAN Provider Action/FYI: Please schedule mammogram, any [...] Noted Resolved LUMBAGO [M54.5] INVALID FOR* COMPLIC FINISHING ROOM OPERATOR ORTHO DEVICE [T84.89XA] INVALID FOR* PAIN IN [...] Wrist Complete 3 Patient Name: MATILDE DAMON [facility] 08-12-2018 [facility] Views Left System ([id number]) Diagnostic Radiology Exam Date/Time 08/12/2018 11:10:00 EDT Exam CR Wrist Complete 3 Views Left Ordering Physician MD AGUSTÍN, BRIDGETTE Tao Accession Number [id number] CPT4 Codes 87333 () Reason For Exam fracture Report Left [...] 2 HCG.beta subunit Negative Negative Normal 06-25-2018 [facility] ( test) Ql (U) (24618) Comment: Result Comment: is the most common reason for HCG in urine, although choriocarcinoma, hydatidifor m mole, and certain nontropho- blastic malignancies also re sult in detectable urinary HCG levels. Sensitivity = 20mIU/ mL. Performed By: #### HCGUR ### # [facility] [address] [place] [address] Encounters Date Type Reason Provider Location 01-18-2020 - Refill Gastroesophageal reflux Joaquín Bob [facility] 01-18-2020 disease without esophagitis Andree Comment: Refill Request Procedures Procedure Name Date Provider Location Mammography 02-22-2019 [facility] ([id number]) Colonoscopy 10-01-2016 [facility] (36360) Plan of Treatment Plan Description Date Location COLONOSCOPY COLONOSCOPY 10-01-2026 [facility] (56168) DTAP,TDAP,TD (2 - Td) DTAP,TDAP,TD (2 - Td) 08-07-2026 [facility] (09486) LIPID SCREEN LIPID SCREEN 11-08-2024 [facility] (90798) PAP TESTING PAP TESTING 02-23-2024 [facility] (59344) DIABETES SCREEN DIABETES SCREEN 11-28-2022 [facility] (77171) ANNUAL PCP TEAM CHRONIC ANNUAL PCP TEAM CHRONIC 11-28-2020 [facility] DISEASE VISIT DISEASE VISIT (63567) MAMMOGRAM MAMMOGRAM 02-23-2020 [facility] (18584) INFLUENZA (#1) INFLUENZA (#1) 2020 [facility] (61135) SHINGRIX VACCINE (1 of 2) SHINGRIX VACCINE (1 of 2) 2016 [facility] (80403) HPV TESTING HPV TESTING 10-25-2015 [facility] (99895) Immunizations Vaccine Notes Status Date Location Influenza Vaccine, influenza virus (completed) 03-14-2009 [facility] Split-Non Spec vaccine, unspecified (4419 5) formulation Influenza Vaccine, influenza virus (completed) 04-02-2006 [facility] Split-Non Spec vaccine, unspecified (4419 5) formulation Influenza Vaccine, influenza virus (completed) 04-01-2005 [facility] Split-Non Spec vaccine, unspecified (4419 5) formulation Influenza Seasonal influenza, injectable, (completed) 02-07-2019 [facility] Inj Quadrivalent Age quadrivalent, contains (31557) 3+ preservative Influenza Seasonal influenza, injectable, (completed) 02-12-2018 [facility] Inj Quadrivalent Age quadrivalent, contains (61196) 3+ preservative Influenza Seasonal influenza, injectable, (completed) 03-05-2015 [facility] Inj Quadrivalent Age quadrivalent, contains (34069) 3+ preservative Influenza Seasonal influenza, seasonal, (completed) 12-31-2015 [facility] Inj Age 3+ injectable (98411) Pneumovax pneumococcal (completed) 03-05-2015 [facility] polysaccharide vaccine, (441 95) 23 valent Tdap (Age 7+) tetanus toxoid, reduced (completed) 08-07-2016 [facility] diphtheria toxoid, and (4419 5) acellular pertussis vaccine, adsorbed Payers Payer Name Policy Number Location FOR[facility]LY [facility], [facility]OSS AND BLUE [facility] [id number] [facility] ([id number]) [place] [id number] [facility] ([id number]) The following information is from the original human readable contentNo Payer Records FoundNo Payer Records FoundNo Payer Records Found Social History Type Social History Date Location Description Tobacco smoking status Current every day smoker 11-29-2019 [facility] ([id number]) History of tobacco use Cigarette Smoker [facility] ([id number]) Cigarettes smoked 11-29-2019 - [facility] current (pack per day) 11-29-2019 ([id number]) - Reported Tobacco use and Never used 11-29-2019 [facility] exposure ([id number]) Alcohol intake Current drinker of 11-29-2019 [facility] alcohol (finding) (99105) Tobacco Comment Father smoked in 03-22-2015 [facility] c childhood home. Has ([address]703) lived with smokers as an adult. Sex Assigned At Not on file [facility] ([id number]) The following information is from the original human readable contentNo Social History Records FoundNo Social History Records FoundNo Social History Records Found Medical Equipment Equipment Code (if Equipment Original Equipment Procedure Code ( if Dates provided) Text (if provided) Identifier (if provided) provided) Att-Pu-J-Kind [id number] 09-19-2011 Implant - [id number] Exz-Ej-V-Kind [id number]_[facility] 05-02-2014 Implant - [id number] Plate 58mm Ss [id number]_[facility] 05-02-2014 2.4mm Scr 7x3 H - [id number] Screw Bn 2.4mm [id number] 05-02-2014 14mm Lcp Ss - [id number] Screw Bn 2.4mm [id number] 05-02-2014 18mm Lcp Ss - [id number] Screw Bn 2.4mm [id number] 05-02-2014 20mm Lcp Ss - [id number] Screw Bn 2.7mm [id number] 05-02-2014 14mm Lcp Ss - [id number] Bit Drl 110mm [id number]_[facility] 05-02-2014 1.8mm Qc D Mrk - [id number] Summary Purpose Family History No Family History Records FoundNo Family History Records Found Advance Directives No Advanced Directives Records Found Documents on File Type Date Recorded 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 [facility] provides no warranty or guarantee of the accuracy or completeness of information in this document. UNRECOGNIZED CONTENT PROVIDED BELOW FOR UNRECOGNIZED SECTION INFORMATION SOURCE DATE CREATED AUTHOR AUTHOR'S ORGANBRAYDENO N 10/17/2018 [facility] DATE CREATED AUTHOR AUTHOR'S ORGANIZATIO N 01/19/2020 [facility] UNRECOGNIZED CONTENT PROVIDED BELOW FOR UNRECOGNIZED SECTION Source Comments In the event this information is protected by the Federal Confidentiality of Alcohol and Drug Abuse Patient Records regulations: The Federal rules restrict any use of the information to criminally investigate or prosecute any alcohol or drug abuse patient.[facility] UNRECOGNIZED CONTENT PROVIDED BELOW FOR UNRECOGNIZED [...]
== END 2019-10-11 19:34 | disposition home or self-care (01) ==
LOC: ED 18:30
PROVIDERS: Emergency Provider Emergency Medicine; PCP Family Medicine
DX: S51.851A Open bite of right forearm, initial encounter (principal); W54.0XXA Bitten by dog, initial encounter
CPT/HCPCS: 12002; 90471; 90715; 99284

== ENCOUNTER 2020-11-27 05:25 | Emergency (ER) | payer MEDICARE, MEDICAID, SELFPAY ==
[2020-11-27 05:25] VITALS: BP 153/84; PULSE 106; RESP 20; TEMP 36.7; O2SAT 97; BMI 39.7
--- NOTE | 2020-11-27 05:31 | CT_ITS ---
STUDY: CT BRAIN WITHOUT CONTRAST REASON FOR EXAM: Female, 55 years old. Headache RADIATION DOSAGE (If Supplied By Facility): CTDIvol = ( 44.99 ) mGy, DLP = ( 1625.96 ) mGycm TECHNIQUE: Transaxial CT imaging of the brain was performed without administration of intravenous contrast material. Individualized dose optimization techniques were used for this CT. COMPARISON: No relevant priors. FINDINGS: Normal soft tissue structures. Normal calvarium. Normal size ventricles and extra-axial spaces for the patient''s age. Normal white matter tracts of the cerebral hemispheres. Normal basal ganglia and thalami. Normal brainstem. Normal cerebellum. There is no intracranial hemorrhage. There are no findings of an acute ischemic infarction. Normal visualized paranasal sinuses. CT/Brain/Head without Contrast IMPRESSION: Normal unenhanced CT scan of the brain. Electronically Signed: Jeison Vazquez MD at 6:10 EDT Tel , Service support ,
[2020-11-27] MEDS: Ketorolac 15 MG/ML Vial IV (05:39)
[2020-11-27] MEDS: proCHLORPERazine 10 MG/2 ML Vial IV (05:39)
[2020-11-27] MEDS: 0.9% Normal Saline 1,000 ML 999 ML IV (05:40)
[2020-11-27] MEDS: DiphenhydrAMINE 50 MG/ML Syringe 25 MG IV (05:40)
--- NOTE | 2020-11-27 06:03 | EDS_ITS ---
HPI History of Present Illness Chief Complaint: Headache Narrative Narrative: Patient presenting for evaluation secondary to headache. Patient reports that over the course the last 3 days she has been dealing with persistent headache. It is bitemporal and has been associated with pain going down the back of her neck. It was not associated with a sudden onset an injury or any sort of neck manipulations or car accidents. This continuous type pain. Patient states that she typically does not deal with headaches, so she did not try taking anything. She denies any visual changes numbness or weakness. She denies any light sensitivity nausea vomiting fevers neck stiffness or abnormal skin rashes. Patient simply states that it was a persistent headache so she presented by EMS for further evaluation. Review of systems otherwise negative. [facility] Medical History Bipolar disorder COPD (chronic obstructive pulmonary disease) Depression GERD (gastroesophageal reflux disease) Home Medications buspirone 15 mg PO TID 08/27/13 [History Last Taken 03/15/14 18:00 1 TAB] venlafaxine 150 mg PO DAILY 08/27/13 [History Last Taken 03/15/14 07:30 75 MG] albuterol sulfate [Ventolin HFA] 1 puff INHALATION Q4H PRN PRN #1 inhaler 03/17/14 [Rx Last Taken Unknown] tiotropium bromide [Spiriva 18 MCG] 1 puff INHALATION DAILY 30 Days inhaler 03/17/14 [Rx Last Taken Unknown] omeprazole 20 mg PO DAILY 04/15/14 [History Last Taken Unknown] Allergy/AdvReac Type Severity Reaction Status Date / Time No Known Allergies Allergy Verified 11/27/20 05:30 Social History Smoking Status: Current every day smoker tobacco type: cigarettes ROS ROS ED Constitutional Constitutional ED: Denies chills, fever(s), sweats or weight loss Eyes Eyes: Denies blurry vision, change in vision, diplopia or photophobia ENT ENT ED: Denies ear pain, neck pain, rhinorrhea or sore throat Cardiovascular Cardiovascular: Denies chest pain Respiratory/Chest Respiratory/Chest: Denies cough or dyspnea Gastrointestinal Gastrointestinal: Denies abdominal pain, nausea or vomiting Musculoskeletal Musculoskeletal: Denies arthralgias, myalgias or neck pain Integumentary Reports other Details: No petechia ; Denies rash Neurologic Neurologic: Reports headache(s) Psychiatric Psychiatric: Reports other Details: No history of IV drug abuse ; Denies depression Hematologic/Lymphatic Hematologic/Lymphatic: Denies easy bleeding or easy bruising Allergic/Immunologic Allergic/Immunologic ED: Reports other Details: No immunosuppression EXAM Physical Exam Const Vital Signs: 11/27/20 05:25 Temperature 98.0 F Temperature Source Temporal Pulse Rate 106 H Respiratory Rate 20 H Blood Pressure 153/84 H Blood Pressure Mean 107 Pulse Ox 97 Oxygen Delivery Method Room Air Positive well nourished and well developed General Appearance ED: well developed and NAD HEENT Reports normocephalic HEENT Narrative: No mastoid tenderness Patient complains of diffuse pain across her forehead and face without localization over the temporal arteries atraumatic; Negative for temporal artery tenderness or vesicular rash Face and Sinus: Negative for sinus tenderness Eyes PERRL and EOMs intact bilaterally Direct Ophthalmoscopy: No papilledema and No retinal abnormality Neck no lymphadenopathy, supple and no meningeal signs Neck Narrative: No evidence of meningismus, no palpable lymph nodes are noted Resp normal respiratory effort and clear to auscultation bilaterally Cardio regular rate, regular rhythm, no murmurs and peripheral pulses 2+ throughout GI non-tender and non-distended Palpation: soft Extremity normal to inspection and full ROM Neuro oriented x3, CN's II-XII intact bilaterally and no sensory deficits noted Sensorium / Orientation: awake and alert Meningeal Signs: no meningeal signs Speech: speech normal Motor Exam: strength 5/5 throughout Psych mental status grossly normal Skin General Skin Exam: Negative for petechiae Lesions: no lesions Rashes: no rashes MDM MDM MDM Narrative Medical decision making narrative: Patient presenting secondary to headache. She did report this been going on for a couple of days, or earlier was not thunderclap but due to the fact that she does not have a prior history of this I obtain CT imaging of the brain which was found to be negative. Patient was administered Benadryl Toradol and Compazine and a liter of fluid. Repeat evaluation of the shows her to have almost complete resolution of the headache. I do not believe that the patient requires admission or further observation at this time, she was given reassurance about the origins of her headache. Patient was discharged in stable condition. Radiography Diagnostic Testing: Radiology Impression Brain CT 11/27/20 05:31 IMPRESSION: Normal unenhanced CT scan of the brain. Electronically Signed: Jeison Vazquez MD at 6:10 EDT Tel , Service support , Discharge Plan Triage Chief Complaint: Headache ED Provider: Domingo Dietrich Dx/Rx/DC Orders Clinical Impression: Headache Instructions: ED Headache, Tension Prescriptions: No Action buspirone 5 MG tablet 15 mg PO TID RF: 0 venlafaxine 75 MG tablet 150 mg PO DAILY RF: 0 albuterol sulfate [Ventolin HFA] 1 INHALER inhaler 1 puff inhalation Q4H PRN PRN (Reason: Wheezing) Qty: 1 RF: 0 Spiriva with HandiHaler 1 PUFF inhaler 1 puff inhalation DAILY 30 Days RF: 0 omeprazole 20 MG capsule 20 mg PO DAILY RF: 0 Primary Care Provider: Dk Israel Referrals: Dk Israel MD [Primary Care Provider] - 1-2 Days if not improving Disposition Disposition: Home, Self Care
[2020-11-27 07:17] VITALS: BP 134/71; PULSE 92; RESP 18; O2SAT 94
== END 2020-11-27 07:18 | disposition home or self-care (01) ==
PROVIDERS: Emergency Provider Emergency Medicine; PCP Family Medicine
DX: R51.9 Headache, unspecified (principal); F17.210 Nicotine dependence, cigarettes, uncomplicated; J44.9 Chronic obstructive pulmonary disease, unspecified; K21.9 Gastro-esophageal reflux disease without esophagitis; Z79.899 Other long term (current) drug therapy
CPT/HCPCS: 70450; 96374; 96375; 99285; J7030; A4216